=== PATIENT | female | born 1970 | race Caucasian/White ===

== ENCOUNTER → 2017-10-13 14:52 | Outpatient (REF) | payer MEDICARE, SELFPAY ==
[2017-10-13 18:48] LABS: Basophils # 0.1 K/mm3 (0-0.2); Basophils % 0.7 % (0.1-2.0); Eosinophils # 0.1 K/mm3 (0.0-0.4); Eosinophils % 0.5 % (0.1-12.0); Hematocrit 46.6 % (37.0-47.0); Hemoglobin 14.7 g/dL (12.2-16.2); Lymphocytes # 1.7 K/mm3 (0.7-4.5); Lymphocytes % 19.1 K/mm3 (10-50); Mean Corpuscular HGB Conc 31.6 g/dL (31.8-35.4); Mean Corpuscular Hemoglobin 34.4 pg (27.0-31.2); Mean Corpuscular Volume 109.2 fl (81-99); Mean Platelet Volume 8.1 fl (7.4-10.4); Monocytes # 0.4 K/mm3 (0.1-1.0); Monocytes % 4.2 % (1.7-9.3); Neutrophils # 6.7 K/mm3 (1.8-7.8); Neutrophils % 75.5 % (37.0-80.0); Platelet Count 530 K/mm3 (142-424); Red Blood Count 4.27 M/mm3 (4.20-5.40); Red Cell Distribution Width 13.4 % (11.5-17.5); White Blood Count 8.9 K/mm3 (4.8-10.8)
[2017-10-13 19:13] LABS: Alanine Aminotransferase 41 U/L (12-78); Albumin Level 3.7 gm/dL (3.4-5.0); Albumin/Globulin Ratio 0.9 (1.1-1.8); Alkaline Phosphatase 122 U/L (46-116); Anion Gap 12.8 mEq/L (5-15); Aspartate Amino Transferase 47 U/L (15-37); Bilirubin,Total 0.2 mg/dL (0.2-1.0); Blood Urea Nitrogen 11 mg/dL (7-18); Calcium 10.2 mg/dL (8.5-10.1); Carbon Dioxide 31 mmol/L (21.0-32.0); Chloride 95 mmol/L (98-107); Chol/HDL Ratio 2.4 (1-3.5); Cholesterol 232 mg/dL (140-200); Creatinine,Serum 0.62 mg/dL (0.55-1.02); Estimated Glomerular Filt Rate 104 ml/min (>60); GFR (African American) 125 ML/MIN (>60); Globulin 3.9 gm/dl (1.3-3.2); Glucose 108 mg/dL (74-106); HDL Cholesterol 96 mg/dL (29-89); LDL Cholesterol 108 mg/dL (0-130); Potassium 4.8 mmoL/L (3.5-5.1); Sodium 134 mmol/L (136-145); T4 (Thyroxine) 6.7 ug/dl (4.7-13.3); Thyroid Stimulating Hormone 0.01 uIU/ml (0.358-3.740); Total Protein,Serum 7.6 gm/dL (6.4-8.2); Triglycerides 138 mg/dL (30-200); VLDL Cholesterol 28 mg/dL (0-40)
== END ==
LOC: LAB 14:52
PROVIDERS: Visit Provider Physician Assistant
DX: F32.1 Major depressive disorder, single episode, moderate (principal); E10.9 Type 1 diabetes mellitus without complications
CPT/HCPCS: 80053; 80061; 83036; 84436; 84443; 85025

== ENCOUNTER → 2017-10-17 18:13 | Outpatient (CLI) | payer MEDICARE, SELFPAY ==
[2017-10-20 03:38] LABS: Folate 11.7 ng/mL (>3.0); Vitamin B12 291 pg/mL (232-1245)
== END ==
PROVIDERS: Visit Provider Physician Assistant
DX: R53.83 Other fatigue (principal)
CPT/HCPCS: 36415; 82607; 82746

== ENCOUNTER → 2018-02-02 13:20 | Outpatient (CLI) | payer MEDICARE, SELFPAY ==
[2018-02-02 13:30] LABS: Campylobacter Not Detected (NotDetected); Clostridium Difficile A/B, PCR Not Detected (NotDetected); Plesimonas Shigalloides, PCR Not Detected (NotDetected); Salmonella, PCR Not Detected (NotDetected); Yersinia Entercolitica, PCR Not Detected (NotDetected)
[2018-02-02 13:31] LABS: Adenovirus F 40/41, stool Not Detected (NotDetected); Astrovirus Not Detected (NotDetected); Cryptosporidium Not Detected (NotDetected); Cyclospora Cayetanesis Not Detected (NotDetected); Entamoeba histolytica Not Detected (NotDetected); Enteroaggregative E coli Not Detected (NotDetected); Enteropathogenic E coli Not Detected (NotDetected); Enterotoxigenic E coli Not Detected (NotDetected); Giardia lamblia Not Detected (NotDetected); Norovirus Not Detected (NotDetected); Rotavirus A Not Detected (NotDetected); Sapovirus Not Detected (NotDetected); Shiga-like toxin E coli Not Detected (NotDetected); Shigella Enterovasive E coli Not Detected (NotDetected); Vibrio Cholerae Not Detected (NotDetected); Vibrio, PCR Not Detected (NotDetected)
[2018-02-02 14:40] LABS: Basophils # 0.1 K/mm3 (0-0.2); Basophils % 0.8 % (0.1-2.0); Eosinophils # 0.2 K/mm3 (0.0-0.4); Eosinophils % 2.6 % (0.1-12.0); Hemoglobin 12.3 g/dL (12.2-16.2); Lymphocytes # 1.5 K/mm3 (0.7-4.5); Lymphocytes % 20.5 K/mm3 (10-50); Mean Corpuscular HGB Conc 32.4 g/dL (31.8-35.4); Mean Corpuscular Hemoglobin 33.5 pg (27.0-31.2); Mean Corpuscular Volume 103.3 fl (81-99); Mean Platelet Volume 8.1 fl (7.4-10.4); Monocytes # 0.4 K/mm3 (0.1-1.0); Monocytes % 4.9 % (1.7-9.3); Neutrophils # 5.4 K/mm3 (1.8-7.8); Neutrophils % 71.2 % (37.0-80.0); Platelet Count 542 K/mm3 (142-424); Red Blood Count 3.67 M/mm3 (4.20-5.40); Red Cell Distribution Width 13.3 % (11.5-17.5); White Blood Count 7.5 K/mm3 (4.8-10.8)
[2018-02-02 15:03] LABS: Hemoglobin A1C 5.2 % (0.0-7.0)
[2018-02-02 18:00] LABS: Chol/HDL Ratio 2.5 (1-3.5); Cholesterol 140 mg/dL (140-200); HDL Cholesterol 56 mg/dL (29-89); LDL Cholesterol 70 mg/dL (0-130); Triglycerides 69 mg/dL (30-200); VLDL Cholesterol 14 mg/dL (0-40)
[2018-02-02 18:04] LABS: Alanine Aminotransferase 30 U/L (12-78); Albumin Level 2.4 gm/dL (3.4-5.0); Albumin/Globulin Ratio 0.8 (1.1-1.8); Alkaline Phosphatase 98 U/L (46-116); Anion Gap 12.8 mEq/L (5-15); Aspartate Amino Transferase 38 U/L (15-37); Bilirubin,Total 0.2 mg/dL (0.2-1.0); Blood Urea Nitrogen 6 mg/dL (7-18); Calcium 8.6 mg/dL (8.5-10.1); Carbon Dioxide 27 mmol/L (21.0-32.0); Chloride 106 mmol/L (98-107); Creatinine,Serum 0.58 mg/dL (0.55-1.02); Estimated Glomerular Filt Rate 112 ml/min (>60); GFR (African American) 135 ML/MIN (>60); Globulin 2.9 gm/dl (1.3-3.2); Glucose 89 mg/dL (74-106); Potassium 4.8 mmoL/L (3.5-5.1); Sodium 141 mmol/L (136-145); T4 (Thyroxine) 3.8 ug/dl (4.7-13.3); Thyroid Stimulating Hormone 0.01 uIU/ml (0.358-3.740); Total Protein,Serum 5.3 gm/dL (6.4-8.2)
[2018-02-06 06:32] LABS: Vitamin D 25 Hydroxy 42.8 ng/mL (30.0-100.0)
== END ==
PROVIDERS: Visit Provider Nurse Practitioner Family
DX: R19.7 Diarrhea, unspecified (principal); E11.9 Type 2 diabetes mellitus without complications; E78.5 Hyperlipidemia, unspecified
CPT/HCPCS: 80053; 80061; 82652; 83036; 84436; 84443; 85025; 87507

== ENCOUNTER → 2018-11-23 12:16 | Outpatient (CLI) | payer MEDICARE, SELFPAY ==
[2018-11-23 12:34] LABS: Basophils # 0.1 K/mm3 (0-0.2); Basophils % 1.2 % (0.1-2.0); Eosinophils # 0.4 K/mm3 (0.0-0.4); Eosinophils % 4.9 % (0.1-12.0); Hematocrit 40.5 % (37.0-47.0); Hemoglobin 12.9 g/dL (12.2-16.2); Lymphocytes # 2.1 K/mm3 (0.7-4.5); Lymphocytes % 25.2 % (10-50); Mean Corpuscular HGB Conc 31.9 g/dL (31.8-35.4); Mean Corpuscular Hemoglobin 30.9 pg (27.0-31.2); Mean Corpuscular Volume 96.8 fl (81-99); Mean Platelet Volume 7.1 fl (7.4-10.4); Monocytes # 0.4 K/mm3 (0.1-1.0); Monocytes % 4.1 % (1.7-9.3); Neutrophils # 5.5 K/mm3 (1.8-7.8); Neutrophils % 64.5 % (37.0-80.0); Platelet Count 650 K/mm3 (142-424); Red Blood Count 4.18 M/mm3 (4.20-5.40); Red Cell Distribution Width 15.7 % (11.5-17.5); White Blood Count 8.5 K/mm3 (4.8-10.8)
[2018-11-23 12:50] LABS: Hemoglobin A1C 5.7 % (0.0-7.0)
[2018-11-23 14:24] LABS: Alanine Aminotransferase 19 U/L (12-78); Albumin Level 3.6 gm/dL (3.4-5.0); Albumin/Globulin Ratio 0.9 (1.1-1.8); Alkaline Phosphatase 112 U/L (46-116); Anion Gap 16.2 mEq/L (5-15); Aspartate Amino Transferase 14 U/L (15-37); Bilirubin,Total 0.2 mg/dL (0.2-1.0); Blood Urea Nitrogen 10 mg/dL (7-18); Calcium 9.2 mg/dL (8.5-10.1); Carbon Dioxide 26 mmol/L (21.0-32.0); Chloride 102 mmol/L (98-107); Chol/HDL Ratio 4.9 (1-3.5); Cholesterol 210 mg/dL (140-200); Creatinine,Serum 0.78 mg/dL (0.55-1.02); Estimated Glomerular Filt Rate 79 ml/min (>60); GFR (African American) 96 ML/MIN (>60); Globulin 4.1 gm/dl (1.3-3.2); Glucose 105 mg/dL (74-106); HDL Cholesterol 43 mg/dL (29-89); LDL Cholesterol 148 mg/dL (0-130); Potassium 4.2 mmoL/L (3.5-5.1); Sodium 140 mmol/L (136-145); Thyroid Stimulating Hormone 0.01 uIU/ml (0.358-3.740); Total Protein,Serum 7.7 gm/dL (6.4-8.2); Triglycerides 95 mg/dL (30-200); VLDL Cholesterol 19 mg/dL (0-40)
[2018-11-24 14:32] LABS: Vitamin D 25 Hydroxy 73.8 ng/mL (30.0-100.0)
[2018-11-24 14:33] LABS: Microalbumin, Urine <3.0 ug/mL (Not Estab.)
== END ==
PROVIDERS: Visit Provider Emergency Medicine
DX: E11.9 Type 2 diabetes mellitus without complications (principal); E78.5 Hyperlipidemia, unspecified; F41.9 Anxiety disorder, unspecified; Z79.84 Long term (current) use of oral hypoglycemic drugs
CPT/HCPCS: 36415; 80053; 80061; 82043; 82652; 83036; 84436; 84443; 85025

== ENCOUNTER → 2018-12-18 18:08 | Outpatient (CLI) | payer MEDICARE, SELFPAY ==
[2018-12-18 19:25] LABS: Basophils # 0.1 K/mm3 (0-0.2); Basophils % 1.8 % (0.1-2.0); Eosinophils # 0.5 K/mm3 (0.0-0.4); Eosinophils % 7.4 % (0.1-12.0); Hematocrit 36.5 % (37.0-47.0); Hemoglobin 11.3 g/dL (12.2-16.2); Lymphocytes # 2.7 K/mm3 (0.7-4.5); Lymphocytes % 38.6 % (10-50); Mean Corpuscular HGB Conc 30.9 g/dL (31.8-35.4); Mean Corpuscular Hemoglobin 29.2 pg (27.0-31.2); Mean Corpuscular Volume 94.6 fl (81-99); Mean Platelet Volume 7.2 fl (7.4-10.4); Monocytes # 0.4 K/mm3 (0.1-1.0); Neutrophils # 3.3 K/mm3 (1.8-7.8); Neutrophils % 46.2 % (37.0-80.0); Platelet Count 472 K/mm3 (142-424); Red Blood Count 3.86 M/mm3 (4.20-5.40); Red Cell Distribution Width 16.1 % (11.5-17.5); White Blood Count 7.1 K/mm3 (4.8-10.8)
[2018-12-20 18:09] LABS: Peripheral Smear Review Scanned Result
== END ==
PROVIDERS: Visit Provider Physician Assistant
DX: R79.89 Other specified abnormal findings of blood chemistry (principal)
CPT/HCPCS: 36415; 85025; 85060

== ENCOUNTER → 2019-02-08 14:11 | Outpatient (CLI) | payer MEDICARE, SELFPAY ==
--- NOTE | 2019-02-08 14:14 | XR_ITS ---
XR DEXA axial skeleton HISTORY: ITS.REASON: non healing fx ORDERING PHYSICIAN: SHRUTHI Bradley PATIENT AGE: 48 years COMPARISON: None FINDINGS: The BMD measured at the left femoral neck is 0.852 g/cm squared with a T score of -1.3. This is considered Osteopenic according to the World Health Organization criteria. Fracture risk is Moderate. Treatment is advised. IMPRESSION: Osteopenia with moderate fracture risk. Treatment is advised. Suggest follow-up exam January 2021
== END ==
PROVIDERS: PCP Physician Assistant; Visit Provider Physician Assistant
DX: S92.901S Unspecified fracture of right foot, sequela (principal); Z78.0 Asymptomatic menopausal state
CPT/HCPCS: 77080

== ENCOUNTER → 2019-03-05 12:30 | Outpatient (CLI) | payer MEDICARE, SELFPAY ==
--- NOTE | 2019-03-05 12:32 | CT_ITS ---
PROCEDURE: CT HEAD/BRAIN WO CON CLINICAL INDICATION: headaches COMPARISON: No exams were available for comparison TECHNIQUE: Axial images obtained with sagittal and coronal reformats. All CT scans at the facility use one or more dose reduction, viz: automated exposure control, ma/kV adjustment per patient size (including targeted exams where dose is matched to indication, i.e. head), or iterative reconstruction technique. FINDINGS: No midline shift, mass effect, intracranial hemorrhage, hydrocephalus, or extra-axial fluid collection is evident. There is a small area of decreased attenuation in the subinsular region posteriorly on the right and could represent a small perivascular dilated space, small choroidal fissure cyst, or an old lacunar infarction. The calvarium has an unremarkable appearance. No mastoid effusion. No sinus air-fluid level. IMPRESSION: 1. No acute intracranial findings 2. Nonspecific isodense to the subinsular region on the right posteriorly which could be due to small perivascular dilated space, choroidal fissure cyst, or an old lacunar infarction Dictated by: Chaparro Butt MD 03/05/2019 16:50 Signed by: <Electronically signed by Chaparro Butt MD in [facility]> 03/05/2019 16:50
== END ==
PROVIDERS: PCP Physician Assistant; Visit Provider Physician Assistant
DX: R51 Headache (principal)
CPT/HCPCS: 70450

== ENCOUNTER → 2019-08-31 14:00 | Outpatient (CLI) | payer MEDICARE, SELFPAY ==
[2019-08-31 14:29] LABS: Chloride 104 mmol/L (98-107); Potassium 4.8 mmoL/L (3.5-5.1); Sodium 139 mmol/L (136-145)
[2019-08-31 14:31] LABS: Alanine Aminotransferase 15 U/L (12-78); Aspartate Amino Transferase 41 U/L (14-36); Blood Urea Nitrogen 7 mg/dl (7-17); Estimated Glomerular Filt Rate 77 ml/min (>60); GFR (African American) 93 ML/MIN (>60)
[2019-08-31 14:32] LABS: Albumin/Globulin Ratio 1.3 (1.1-1.8); Alkaline Phosphatase 71 U/L (38-126); Anion Gap 13.8 mEq/L (5-15); Bilirubin,Total 0.2 mg/dl (0.2-1.3); Calcium 9.5 mg/dl (8.4-10.2); Carbon Dioxide 26 mmol/L (22.0-30.0); Chol/HDL Ratio 3.1 (1-3.5); Cholesterol 159 mg/dl (140-200); Glucose 83 mg/dl (74-100); HDL Cholesterol 52 mg/dl (40-60); Triglycerides 239 mg/dl (30-150); VLDL Cholesterol 48 mg/dL (0-40)
[2019-08-31 14:37] LABS: Basophils # 0.1 K/mm3 (0-0.2); Basophils % 1.9 % (0.1-2.0); Eosinophils # 0.2 K/mm3 (0.0-0.4); Eosinophils % 3.9 % (0.1-12.0); Hematocrit 38.7 % (37.0-47.0); Hemoglobin 12.8 g/dL (12.2-16.2); Lymphocytes # 2.1 K/mm3 (0.7-4.5); Lymphocytes % 40.7 % (10-50); Mean Corpuscular Hemoglobin 32.5 pg (27.0-31.2); Mean Corpuscular Volume 98.3 fl (81-99); Mean Platelet Volume 7.8 fl (7.4-10.4); Monocytes # 0.3 K/mm3 (0.1-1.0); Neutrophils # 2.5 K/mm3 (1.8-7.8); Neutrophils % 48.5 % (37.0-80.0); Platelet Count 507 K/mm3 (142-424); Red Blood Count 3.94 M/mm3 (4.20-5.40); Red Cell Distribution Width 16.5 % (11.5-17.5); White Blood Count 5.1 K/mm3 (4.8-10.8)
[2019-08-31 14:44] LABS: Direct LDL Cholesterol 64.99 mg/dL (100-129)
[2019-08-31 14:49] LABS: T4 (Thyroxine) 6.2 ug/dl (5.53-11.0)
[2019-08-31 15:03] LABS: Thyroid Stimulating Hormone < 0.02 uIU/mL (0.465-4.68)
[2019-09-03 09:36] LABS: Folate 2.3 ng/mL (>3.0); Vitamin B12 1224 pg/mL (232-1245); Vitamin D 25 Hydroxy 62.3 ng/mL (30.0-100.0)
== END ==
PROVIDERS: Visit Provider Physician Assistant
DX: E03.9 Hypothyroidism, unspecified (principal); R55 Syncope and collapse
CPT/HCPCS: 80053; 80061; 82607; 82652; 82746; 84436; 84443; 85025

== ENCOUNTER → 2020-01-30 15:55 | Outpatient (CLI) | payer MEDICARE, SELFPAY ==
[2020-01-30 16:32] LABS: Basophils # 0.1 K/mm3 (0-0.2); Basophils % 0.9 % (0.1-2.0); Eosinophils # 0.3 K/mm3 (0.0-0.4); Eosinophils % 3.6 % (0.1-12.0); Hematocrit 40.5 % (37.0-47.0); Hemoglobin 13.4 g/dL (12.2-16.2); Lymphocytes # 2.2 K/mm3 (0.7-4.5); Lymphocytes % 22.8 % (10-50); Mean Corpuscular Hemoglobin 33.9 pg (27.0-31.2); Mean Corpuscular Volume 102.8 fl (81-99); Monocytes # 0.2 K/mm3 (0.1-1.0); Monocytes % 2.6 % (1.7-9.3); Neutrophils # 6.6 K/mm3 (1.8-7.8); Neutrophils % 70.2 % (37.0-80.0); Platelet Count 444 K/mm3 (142-424); Red Blood Count 3.94 M/mm3 (4.20-5.40); Red Cell Distribution Width 16.3 % (11.5-17.5); White Blood Count 9.4 K/mm3 (4.8-10.8)
[2020-01-30 16:33] LABS: Chloride 101 mmol/L (98-107); Potassium 4.2 mmoL/L (3.5-5.1); Sodium 137 mmol/L (136-145)
[2020-01-30 16:35] LABS: Alanine Aminotransferase 22 U/L (12-78); Aspartate Amino Transferase 49 U/L (14-36)
[2020-01-30 16:36] LABS: Albumin Level 4.3 g/dl (3.5-5.0); Albumin/Globulin Ratio 1.3 (1.1-1.8); Alkaline Phosphatase 92 U/L (38-126); Anion Gap 12.2 mEq/L (5-15); Bilirubin,Total 0.3 mg/dl (0.2-1.3); Calcium 9.6 mg/dl (8.4-10.2); Carbon Dioxide 28 mmol/L (22.0-30.0); Cholesterol 245 mg/dl (140-200); Globulin 3.4 g/dL (1.3-3.2); Glucose 124 mg/dl (74-100); HDL Cholesterol 81 mg/dl (40-60); Total Protein,Serum 7.7 g/dl (6.3-8.2); Triglycerides 382 mg/dl (30-150); VLDL Cholesterol 76 mg/dL (0-40)
[2020-01-30 16:41] LABS: Blood Urea Nitrogen 11 mg/dl (7-17); Estimated Glomerular Filt Rate 89 ml/min (>60); GFR (African American) 108 ML/MIN (>60)
[2020-01-30 16:47] LABS: Direct LDL Cholesterol 117.74 mg/dL (100-129)
[2020-01-30 16:53] LABS: T4 (Thyroxine) 4.4 ug/dl (5.53-11.0)
[2020-01-30 17:07] LABS: Thyroid Stimulating Hormone < 0.02 uIU/mL (0.465-4.68)
== END ==
PROVIDERS: Emergency Medicine; PCP Physician Assistant; Visit Provider Physician Assistant
DX: E03.9 Hypothyroidism, unspecified (principal); E11.9 Type 2 diabetes mellitus without complications; M54.16 Radiculopathy, lumbar region; Z79.4 Long term (current) use of insulin
CPT/HCPCS: 80053; 80061; 83036; 84436; 84443; 85025

== ENCOUNTER → 2020-02-17 17:13 | Outpatient (CLI) | payer MEDICARE, SELFPAY ==
--- NOTE | 2020-02-17 17:13 | MM_ITS ---
PROCEDURE: MM DIG SCREENING MAMM BI W/CAD Digital Breast Tomosynthesis Included CLINICAL INDICATION: screening There is a history of breast cancer in patient's aunt. There has been a previous biopsy left breast for benign disease. COMPARISON: MG DMSB DIG MAMM-SCREEN JAZMIN from 10/12/2013 MG DMDB DIG MAMM-DX JAZMIN from 08/28/2015 MG DMDB DIG MAMM-DX JAZMIN from 05/20/2016 TECHNIQUE: Standard CC and MLO images and 3D Tomosynthesis was obtained. R2 CAD reviewed. FINDINGS: Diffusely dense and somewhat heterogenic appearing fibroglandular densities are seen in both breasts. Biopsy clip upper outer quadrant left breast. There is no suspicious lesion and no suspicious microcalcifications. IMPRESSION: Moderate breast density with no suspicious lesions seen BI-RAD Category: 2 Benign Finding(s) FOLLOW-UP: 1YR 1 Year Follow-up (A letter has been sent to the patient regarding results of the study.) Dictated Dr. Daquan Pike MD 02/18/2020 13:57 Dr. Daquan Camilo MD in [facility] 02/18/2020 13:57
[2020-02-19 06:18] LABS: Vitamin B12 781 pg/mL (232-1245)
[2020-02-19 13:06] LABS: Folate 18.2 ng/mL (>3.0)
[2020-02-19 17:31] LABS: Peripheral Smear Review Scanned Result
== END ==
PROVIDERS: PCP Physician Assistant; Visit Provider Physician Assistant
DX: Z12.31 Encounter for screening mammogram for malignant neoplasm of breast (principal); D69.6 Thrombocytopenia, unspecified; E03.9 Hypothyroidism, unspecified; D53.9 Nutritional anemia, unspecified
CPT/HCPCS: 36415; 77063; 77067; 82607; 82746

== ENCOUNTER → 2020-03-04 09:58 | Outpatient (CLI) | payer MEDICARE, SELFPAY ==
[2020-03-04 10:59] LABS: Chloride 104 mmol/L (98-107); Potassium 4.3 mmoL/L (3.5-5.1); Sodium 135 mmol/L (136-145)
[2020-03-04 11:01] LABS: Blood Urea Nitrogen 9 mg/dl (7-17); Estimated Glomerular Filt Rate 89 ml/min (>60); GFR (African American) 108 ML/MIN (>60)
[2020-03-04 11:02] LABS: Alanine Aminotransferase 25 U/L (12-78); Albumin Level 3.9 g/dl (3.5-5.0); Albumin/Globulin Ratio 1.4 (1.1-1.8); Alkaline Phosphatase 74 U/L (38-126); Anion Gap 11.3 mEq/L (5-15); Aspartate Amino Transferase 44 U/L (14-36); Bilirubin,Total 0.4 mg/dl (0.2-1.3); Calcium 9.4 mg/dl (8.4-10.2); Carbon Dioxide 24 mmol/L (22.0-30.0); Globulin 2.7 g/dL (1.3-3.2); Glucose 103 mg/dl (74-100); Total Protein,Serum 6.6 g/dl (6.3-8.2)
[2020-03-04 11:33] LABS: Thyroid Stimulating Hormone 0.14 uIU/mL (0.465-4.68)
== END ==
PROVIDERS: Visit Provider Physician Assistant
DX: D53.9 Nutritional anemia, unspecified (principal); E03.9 Hypothyroidism, unspecified
CPT/HCPCS: 36415; 80053; 84443

== ENCOUNTER → 2020-03-28 13:32 | Outpatient (CLI) | payer MEDICARE, SELFPAY ==
--- NOTE | 2020-03-28 13:37 | XR_ITS ---
PROCEDURE: XR SHOULDER RT MIN 2V CLINICAL INDICATION: rt shoulder pain COMPARISON: No exams were available for comparison FINDINGS: No fracture or dislocation. No lytic or blastic change. There is normal mineralization. There are osteoarthritic changes the glenohumeral joint and acromioclavicular joint with mild subacromial stenosis. There is an old right 9th rib fracture. Other findings:None. IMPRESSION: Osteoarthritic change Dictated by: Chaparro Butt MD 03/28/2020 18:03 Chaparro Butt MD in [facility] 03/28/2020 18:03
== END ==
PROVIDERS: PCP Emergency Medicine; Visit Provider Orthopaedic Surgery
DX: M25.511 Pain in right shoulder (principal)
CPT/HCPCS: 73030

== ENCOUNTER → 2020-04-10 07:59 | Outpatient (CLI) | payer MEDICARE, SELFPAY ==
--- NOTE | 2020-04-10 08:00 | MR_ITS ---
PROCEDURE: MR SHOULDER RT WO CON CLINICAL INDICATION: evaluate for RCT / avascular necrosis prior hx 2 shoulder surgeries last one was december 2018. shoulder pain since last sugery. limited rom. no injury. prior x-ray 03-28-20 COMPARISON: CR XR SHOULDER RT MIN 2V from 03/28/2020 TECHNIQUE: Routine multiplanar multi echo sequences are performed without gadolinium enhancement. FINDINGS: There has been prior shoulder surgery. Nonmetallic screw noted within the humeral head laterally and posteriorly. No evidence of rotator cuff tear. Increased T2 signal with thickening noted involving the supraspinatus and infraspinatus tendons consistent with tendinopathy/tendinosis. The subscapularis and teres minor tendons are intact. Subchondral cystic changes are present involving the humeral head posteriorly. There is a small shoulder joint effusion. Osteoarthritic changes are present at the acromioclavicular joint with bony hypertrophy. There is some fluid in the AC joint and in the periarticular tissues superiorly. The bicipital tendon has a split configuration superiorly but is in place. A small amount of fluid is present within the bicipital tendon sheath. No obvious labral tear. The small amount of fluid is present in the shoulder joint. Small amount of fluid is present in the subdeltoid region and subacromial area. There are osteoarthritic changes of the glenohumeral joint. There is evidence of avascular necrosis of the humeral head. Along the anterior medial aspect of the humeral head there is a curvilinear area of decreased T2 signal with a crescent sign in the subcortical region of the humeral head manifest by increased T2 signal. There is some cortical collapse is well. IMPRESSION: 1. Postsurgical changes of the shoulder. 2. Acromioclavicular arthropathy with fluid in the AC joint and periarticular tissues. Osteoarthritic changes of the glenohumeral joint with superior location of the humeral head with shoulder joint effusion 3. Tendinopathy/tendinosis of the supraspinatus and infraspinatus tendons but no evidence of rotator cuff tear. 4. Split tear of the bicipital tendon. 5. Avascular necrosis of the humeral head. Dictated by: Chaparro Butt MD 04/11/2020 10:33 Chaparro Butt MD in [facility] 04/11/2020 10:33
== END ==
PROVIDERS: PCP Emergency Medicine; Visit Provider Orthopaedic Surgery
DX: G89.29 Other chronic pain (principal); M25.511 Pain in right shoulder; M87.021 Idiopathic aseptic necrosis of right humerus
CPT/HCPCS: 73221

== ENCOUNTER → 2020-04-26 14:49 | Outpatient (CLI) | payer MEDICARE, SELFPAY | PROVIDERS: Visit Provider Surgery | DX: R19.7 Diarrhea, unspecified (principal) | CPT/HCPCS: 87506 ==

== ENCOUNTER 2020-04-26 14:57 | Outpatient (RCR) | payer MEDICARE, SELFPAY | END 2020-04-26 15:29 | disposition home or self-care (01) | LOC: OT 14:57 | PROVIDERS: Visit Provider Orthopaedic Surgery | DX: G56.01 Carpal tunnel syndrome, right upper limb (principal) | CPT/HCPCS: 97763 ==

== ENCOUNTER → 2020-08-16 13:54 | Outpatient (CLI) | payer MEDICARE, SELFPAY ==
[2020-08-16 14:22] LABS: Amphetamine/Metha Screen,Urine Negative ng/ml (<1000); Barbiturates Screen,Urine Negative ng/ml (<200)
[2020-08-16 14:23] LABS: Benzodiazepines Screen,Urine Positive ng/ml (<200)
[2020-08-16 14:24] LABS: Cannabinoid Screen,Urine Negative ng/ml (<50); Cocaine Screen,Urine Negative ng/ml (<300)
[2020-08-16 14:25] LABS: Methadone Screen,Urine Negative ng/ml (<300)
[2020-08-16 14:26] LABS: Opiate Screen,Urine Negative ng/ml (<300); Phencyclidine Screen,Urine Negative ng/ml (<25)
[2020-08-16 14:40] LABS: Basophils # 0.1 K/mm3 (0-0.2); Basophils % 1.5 % (0.1-2.0); Eosinophils # 0.3 K/mm3 (0.0-0.4); Eosinophils % 3.5 % (0.1-12.0); Hematocrit 40.7 % (37.0-47.0); Hemoglobin 12.6 g/dL (12.2-16.2); Lymphocytes % 22.2 % (10-50); Mean Corpuscular HGB Conc 30.9 g/dL (31.8-35.4); Mean Corpuscular Hemoglobin 30.7 pg (27.0-31.2); Mean Corpuscular Volume 99.1 fl (81-99); Mean Platelet Volume 7.6 fl (7.4-10.4); Monocytes # 0.5 K/mm3 (0.1-1.0); Monocytes % 5.6 % (1.7-9.3); Neutrophils % 67.2 % (37.0-80.0); Platelet Count 546 K/mm3 (142-424); Red Blood Count 4.11 M/mm3 (4.20-5.40); Red Cell Distribution Width 18.1 % (11.5-17.5); White Blood Count 8.9 K/mm3 (4.8-10.8)
[2020-08-16 15:42] LABS: Alanine Aminotransferase 13 U/L (12-78); Albumin Level 4.4 g/dl (3.5-5.0); Albumin/Globulin Ratio 1.3 (1.1-1.8); Alkaline Phosphatase 91 U/L (38-126); Aspartate Amino Transferase 51 U/L (14-36); Bilirubin,Total 0.6 mg/dl (0.2-1.3); Blood Urea Nitrogen 11 mg/dl (7-17); Calcium 10.2 mg/dl (8.4-10.2); Carbon Dioxide 30 mmol/L (22.0-30.0); Chloride 103 mmol/L (98-107); Chol/HDL Ratio 4.1 (1-3.5); Cholesterol 195 mg/dl (140-200); Estimated Glomerular Filt Rate 67 ml/min (>60); GFR (African American) 81 ML/MIN (>60); Globulin 3.4 g/dL (1.3-3.2); Glucose 109 mg/dl (74-100); HDL Cholesterol 48 mg/dl (40-60); Sodium 136 mmol/L (136-145); Total Protein,Serum 7.8 g/dl (6.3-8.2); Triglycerides 318 mg/dl (30-150); VLDL Cholesterol 64 mg/dL (0-40)
[2020-08-16 15:53] LABS: Direct LDL Cholesterol 90.36 mg/dL (100-129)
[2020-08-16 15:59] LABS: 25-OH Vitamin D, Total 34.7 ng/mL (30-100)
== END ==
PROVIDERS: Visit Provider Physician Assistant
DX: E11.9 Type 2 diabetes mellitus without complications (principal); E78.5 Hyperlipidemia, unspecified; M54.16 Radiculopathy, lumbar region; Z79.899 Other long term (current) drug therapy; E03.9 Hypothyroidism, unspecified; M85.80 Other specified disorders of bone density and structure, unspecified site; Z79.4 Long term (current) use of insulin
CPT/HCPCS: 80053; 80061; 80305; 82043; 82306; 83036; 85025

== ENCOUNTER → 2020-11-02 10:32 | Outpatient (CLI) | payer MEDICARE, SELFPAY ==
[2020-11-02 11:17] LABS: Basophils # 0.1 K/mm3 (0-0.2); Basophils % 1.2 % (0.1-2.0); Eosinophils # 0.3 K/mm3 (0.0-0.4); Eosinophils % 2.6 % (0.1-12.0); Hematocrit 39.9 % (37.0-47.0); Hemoglobin 12.9 g/dL (12.2-16.2); Lymphocytes # 1.8 K/mm3 (0.7-4.5); Lymphocytes % 18.8 % (10-50); Mean Corpuscular HGB Conc 32.3 g/dL (31.8-35.4); Mean Corpuscular Hemoglobin 32.5 pg (27.0-31.2); Mean Corpuscular Volume 100.7 fl (81-99); Mean Platelet Volume 7.3 fl (7.4-10.4); Monocytes # 0.5 K/mm3 (0.1-1.0); Monocytes % 5.2 % (1.7-9.3); Neutrophils # 6.9 K/mm3 (1.8-7.8); Neutrophils % 72.1 % (37.0-80.0); Platelet Count 509 K/mm3 (142-424); Red Blood Count 3.96 M/mm3 (4.20-5.40); Red Cell Distribution Width 16.5 % (11.5-17.5); White Blood Count 9.6 K/mm3 (4.8-10.8)
== END ==
PROVIDERS: Visit Provider Internal Medicine Medical Oncology
DX: D47.3 Essential (hemorrhagic) thrombocythemia (principal)
CPT/HCPCS: 36415; 85025

== ENCOUNTER → 2020-12-20 18:13 | Outpatient (CLI) | payer MEDICARE, SELFPAY ==
[2020-12-20 19:41] LABS: Amphetamine/Metha Screen,Urine Negative ng/ml (<1000)
[2020-12-20 19:42] LABS: Barbiturates Screen,Urine Negative ng/ml (<200)
[2020-12-20 19:43] LABS: Benzodiazepines Screen,Urine Negative ng/ml (<200); Cannabinoid Screen,Urine Negative ng/ml (<50)
[2020-12-20 19:44] LABS: Cocaine Screen,Urine Negative ng/ml (<300); Methadone Screen,Urine Negative ng/ml (<300)
[2020-12-20 19:45] LABS: Opiate Screen,Urine Negative ng/ml (<300)
[2020-12-20 19:46] LABS: Phencyclidine Screen,Urine Negative ng/ml (<25)
== END ==
PROVIDERS: Visit Provider Physician Assistant
DX: M54.16 Radiculopathy, lumbar region (principal); Z79.899 Other long term (current) drug therapy
CPT/HCPCS: 80305

== ENCOUNTER 2022-12-29 20:59 | Emergency (ER) | payer MEDICARE, SELFPAY ==
[2022-12-29 21:11] VITALS: BP 158/100; PULSE 104; RESP 16; TEMP 36.9; O2SAT 100; BMI 21.9
[2022-12-29 21:30] VITALS: BP 119/79; PULSE 90; O2SAT 99
--- NOTE | 2022-12-29 21:39 | XR_ITS ---
PROCEDURE INFORMATION: Exam: XR Right Shoulder Exam date and time: 12/29/2022 9:35 PM Age: 52 years old Clinical indication: Pain; Shoulder; Right TECHNIQUE: Imaging protocol: Radiologic exam of the right shoulder. Views: 2 or more views. COMPARISON: MR SHOULDER RT WO CON 04/10/2020 8:14 AM FINDINGS: Bones/joints: Post right shoulder arthroplasty without evidence of hardware complication. Superior migration of the humeral head relative to the glenoid. No glenohumeral dislocation. Cystic changes at the greater tuberosity compatible with tendinopathy. No acute fracture. Moderate acromioclavicular joint osteoarthrosis. Remote right posterolateral rib fracture deformity. Soft tissues: Unremarkable. IMPRESSION: 1. Post right shoulder arthroplasty without evidence of hardware complication. No acute fracture. 2. Superior migration of the humeral head relative to the glenoid compared to 03/28/2020 suggestive of full-thickness rotator cuff tear.
--- NOTE | 2022-12-29 21:48 | HMH.EDBACK ---
Discharge Plan Disposition Patient Disposition: Home, Self-Care Chief Complaint: Back Pain/Injury Prescriptions Prescriptions: No Action (DME) blood-glucose meter [Accu-Chek Jacquelyn Plus Meter] Misc See Rx Instructions .ROUTE .COMPLEX Qty: 1 0RF Dose Instruction: USE DIRECTED Rx Instructions: USE DIRECTED dextromethorphan-guaifenesin [Mucinex DM] 60-1,200 mg tablet extended release 12 hr 1 tab PO Q12H Qty: 20 0RF levocetirizine [Xyzal] 5 mg tablet 5 mg PO DAILY Qty: 30 2RF albuterol sulfate [Proventil HFA] 90 mcg/actuation HFA aerosol inhaler 2 puff INHALATION Q6H Qty: 8.5 0RF Rx Instructions: administer with spacer alcohol swabs [BD Alcohol Swabs] Pads, Medicated See Rx Instructions .ROUTE .COMPLEX Qty: 300 0RF Dose Instruction: APPLY TOPICALLY DIRECTED Rx Instructions: APPLY TOPICALLY DIRECTED atorvastatin 20 mg tablet See Rx Instructions .ROUTE .COMPLEX Qty: 90 3RF Dose Instruction: TAKE 1 TABLET EVERY DAY Rx Instructions: TAKE 1 TABLET EVERY DAY (DME) Accu-Chek Jacquelyn Plus test strp Strip See Rx Instructions .ROUTE .COMPLEX Qty: 200 0RF Dose Instruction: TEST BLOOD SUGAR TWICE DAILY Rx Instructions: TEST BLOOD SUGAR TWICE DAILY duloxetine 60 mg capsule,delayed release(DR/EC) See Rx Instructions .ROUTE .COMPLEX Qty: 90 0RF Dose Instruction: TAKE 1 CAPSULE EVERY DAY Rx Instructions: TAKE 1 CAPSULE EVERY DAY ergocalciferol (vitamin D2) 1,250 mcg (50,000 unit) capsule 50,000 unit PO QWEEK Qty: 10 2RF fluticasone propionate [Flonase Allergy Relief] 50 mcg/actuation spray,suspension 1 spray INTRANASAL QDAY 30 Days Qty: 9.9 0RF Rx Instructions: administer into each nostril folic acid 1 mg tablet 1 mg PO DAILY Qty: 30 2RF levothyroxine 100 mcg tablet 100 mcg PO DAILY Qty: 90 3RF lidocaine [Lidoderm] 5 % adhesive patch,medicated 1 patch TOPICAL DAILY Qty: 30 2RF Rx Instructions: leave on most painful area for up to 12 hrs omeprazole 40 mg capsule,delayed release(DR/EC) See Rx Instructions .ROUTE .COMPLEX Qty: 90 3RF Dose Instruction: TAKE 1 CAPSULE EVERY DAY Rx Instructions: TAKE 1 CAPSULE EVERY DAY furosemide 20 mg tablet See Rx Instructions .ROUTE .COMPLEX Qty: 90 0RF Dose Instruction: TAKE 1 TABLET DAILY Rx Instructions: TAKE 1 TABLET DAILY metformin 500 mg tablet See Rx Instructions .ROUTE .COMPLEX Qty: 180 0RF Dose Instruction: TAKE 1 TABLET TWICE A DAY Rx Instructions: TAKE 1 TABLET TWICE A DAY amitriptyline 10 mg tablet See Rx Instructions .ROUTE .COMPLEX Qty: 90 0RF Dose Instruction: TAKE 1 TABLET AT BEDTIME Rx Instructions: TAKE 1 TABLET AT BEDTIME alendronate 70 mg tablet See Rx Instructions .ROUTE .COMPLEX Qty: 12 0RF Dose Instruction: TAKE 1 TABLET WEEKLY Rx Instructions: TAKE 1 TABLET WEEKLY (DME) lancets [Accu-Chek Softclix Lancets] Mis See Rx Instructions .ROUTE .COMPLEX Qty: 200 1RF Dose Instruction: TEST BLOOD SUGAR 3 TIMES A DAY DIRECTED Rx Instructions: TEST BLOOD SUGAR 3 TIMES A DAY DIRECTED ibuprofen 400 mg tablet See Rx Instructions .ROUTE .COMPLEX Qty: 360 0RF Dose Instruction: TAKE 1 TABLET EVERY 6 HOURS Rx Instructions: TAKE 1 TABLET EVERY 6 HOURS metoclopramide HCl 10 mg tablet See Rx Instructions .ROUTE .COMPLEX Qty: 90 0RF Dose Instruction: TAKE 1 TABLET 3 TIMES A DAYAS NEEDED FOR NAUSEA AND VOMITING Rx Instructions: TAKE 1 TABLET 3 TIMES A DAYAS NEEDED FOR NAUSEA AND VOMITING famotidine 20 mg tablet See Rx Instructions .ROUTE .COMPLEX Qty: 30 0RF Dose Instruction: TAKE 1 TABLET DAILY Rx Instructions: TAKE 1 TABLET DAILY potassium chloride 10 mEq capsule, extended release See Rx Instructions .ROUTE .COMPLEX Qty: 60 0RF Dose I
[2022-12-29 22:00] VITALS: BP 124/85; PULSE 102; O2SAT 100
[2022-12-29 22:10] LABS: Basophils # 0.1 K/mm3 (0-0.2); Eosinophils # 0.5 K/mm3 (0.0-0.4); Eosinophils % 5.7 % (0.1-12.0); Hematocrit 37.4 % (37.0-47.0); Hemoglobin 12.1 g/dL (12.2-16.2); Lymphocytes # 3.4 K/mm3 (0.7-4.5); Lymphocytes % 40.8 % (10-50); Mean Corpuscular HGB Conc 32.3 g/dL (31.8-35.4); Mean Corpuscular Hemoglobin 29.1 pg (27.0-31.2); Mean Platelet Volume 7.3 fl (7.4-10.4); Monocytes # 0.4 K/mm3 (0.1-1.0); Monocytes % 4.9 % (1.7-9.3); Neutrophils % 47.5 % (37.0-80.0); Platelet Count 628 K/mm3 (142-424); Red Blood Count 4.16 M/mm3 (4.20-5.40); Red Cell Distribution Width 16.8 % (11.5-17.5); White Blood Count 8.4 K/mm3 (4.8-10.8)
[2022-12-29 22:28] LABS: Alanine Aminotransferase 18 U/L (12-78); Albumin Level 4.4 g/dl (3.5-5.0); Albumin/Globulin Ratio 1.4 (1.1-1.8); Alkaline Phosphatase 78 U/L (38-126); Anion Gap 13.3 mEq/L (5-15); Aspartate Amino Transferase 35 U/L (14-36); Bilirubin,Total 0.2 mg/dl (0.2-1.3); Blood Urea Nitrogen 15 mg/dl (7-17); Calcium 9.1 mg/dl (8.4-10.2); Carbon Dioxide 29 mmol/L (22.0-30.0); Chloride 98 mmol/L (98-107); Creatinine Clearance Estimated 59 mL/min (50-200); Estimated Glomerular Filt Rate 66 ml/min (>60); GFR (African American) 80 ML/MIN (>60); Globulin 3.1 g/dL (1.3-3.2); Glucose 133 mg/dl (74-100); Potassium 4.3 mmoL/L (3.5-5.1); Sodium 136 mmol/L (136-145); Total Protein,Serum 7.5 g/dl (6.3-8.2)
[2022-12-29 22:30] VITALS: BP 121/84; PULSE 99; O2SAT 98
--- NOTE | 2022-12-29 22:31 | PC.NURSE ---
Rounded on pt. Pt wanting pain shot advised we are waiting on her scan results at this time.
[2022-12-29 22:39] VITALS: BP 121/84; PULSE 84; RESP 16; TEMP 36.9; O2SAT 98
[2022-12-29 23:00] LABS: Hemoglobin A1C 5.7 % (4.0-6.0)
== END 2022-12-29 22:59 | disposition home or self-care (01) ==
PROVIDERS: Emergency Provider Emergency Medicine; PCP Physician Assistant
DX: M25.511 Pain in right shoulder (principal); E11.9 Type 2 diabetes mellitus without complications; E78.5 Hyperlipidemia, unspecified; E03.9 Hypothyroidism, unspecified; F41.9 Anxiety disorder, unspecified; F32.A Depression, unspecified; F17.210 Nicotine dependence, cigarettes, uncomplicated
CPT/HCPCS: 73030; 80053; 83036; 85025; 96372; 99284

== ENCOUNTER → 2022-12-30 13:22 | Outpatient (CLI) | payer MEDICARE, SELFPAY | PROVIDERS: PCP Physician Assistant; Visit Provider Physician Assistant | DX: E10.9 Type 1 diabetes mellitus without complications (principal) | CPT/HCPCS: 84443 ==

== ENCOUNTER → 2022-12-30 19:02 | Outpatient (CLI) | payer MEDICARE, SELFPAY ==
[2022-12-30 19:44] LABS: Amphetamine/Metha Screen,Urine Negative ng/ml (<1000)
[2022-12-30 19:45] LABS: Barbiturates Screen,Urine Negative ng/ml (<200); Benzodiazepines Screen,Urine Negative ng/ml (<200)
[2022-12-30 19:46] LABS: Cannabinoid Screen,Urine Negative ng/ml (<50)
[2022-12-30 19:47] LABS: Cocaine Screen,Urine Negative ng/ml (<300); Methadone Screen,Urine Negative ng/ml (<300)
[2022-12-30 19:48] LABS: Opiate Screen,Urine Positive ng/ml (<300)
[2022-12-30 19:50] LABS: Phencyclidine Screen,Urine Negative ng/ml (<25)
[2022-12-30 19:59] LABS: Microalbumin/Creatinine Ratio 2.4
[2022-12-30 20:04] LABS: Creatinine,Urine Random 277 mg/dL (Not Estab.)
== END ==
PROVIDERS: PCP Physician Assistant; Visit Provider Physician Assistant
DX: R39.9 Unspecified symptoms and signs involving the genitourinary system (principal); M25.511 Pain in right shoulder; B96.20 Unspecified Escherichia coli [E. coli] as the cause of diseases classified elsewhere; Z79.899 Other long term (current) drug therapy
CPT/HCPCS: 80305; 82043; 82570; 84443; 87086; 87088; 87186

== ENCOUNTER 2023-05-04 21:10 | Emergency (ER) | payer MEDICARE, SELFPAY ==
[2023-05-04 21:13] VITALS: BP 146/88; PULSE 91; RESP 15; TEMP 36.6; O2SAT 97; BMI 21.9
--- NOTE | 2023-05-04 21:48 | XR_ITS ---
PROCEDURE INFORMATION: Exam: XR Chest Exam date and time: 05/04/2023 9:45 PM Age: 52 years old Clinical indication: Pain; Other: Fall; Additional info: Fall pain TECHNIQUE: Imaging protocol: Radiologic exam of the chest. Views: 1 view. COMPARISON: CR XR SHOULDER RT MIN 2V 12/29/2022 9:35 PM FINDINGS: Lungs: Unremarkable. No consolidation. Pleural spaces: Unremarkable. No pleural effusion. No pneumothorax. Heart/Mediastinum: Unremarkable. No cardiomegaly. Bones/joints: Right shoulder arthroplasty. IMPRESSION: No acute findings.
--- NOTE | 2023-05-04 21:48 | XR_ITS ---
PROCEDURE INFORMATION: Exam: XR Right Shoulder Exam date and time: 05/04/2023 9:46 PM Age: 52 years old Clinical indication: Pain; Shoulder; Right; Additional info: Shoulder pain TECHNIQUE: Imaging protocol: Radiologic exam of the right shoulder. Views: 2 or more views. COMPARISON: CR XR SHOULDER RT MIN 2V 12/29/2022 9:35 PM FINDINGS: Bones/joints: Right shoulder arthroplasty similar to comparison 12/29/2022. Soft tissues: Normal. IMPRESSION: Right shoulder arthroplasty similar to comparison 12/29/2022.
--- NOTE | 2023-05-04 21:48 | XR_ITS ---
PROCEDURE INFORMATION: Exam: XR Sacrum and Coccyx, 2 or More Views Exam date and time: 05/04/2023 9:50 PM Age: 52 years old Clinical indication: Pain in coccyx area; Additional info: Fall pain TECHNIQUE: Imaging protocol: XR of the sacrum and coccyx, 2 or more views. COMPARISON: No relevant prior studies available. FINDINGS: Bones/joints: Internal fixation of the lumbar spine. Internal fixation left SI joint. Soft tissues: Normal. IMPRESSION: No acute findings.
--- NOTE | 2023-05-04 22:29 | HMH.EDGENADL ---
Discharge Plan Disposition Patient Disposition: Home, Self-Care Prescriptions Prescriptions: No Action lidocaine [Lidoderm] 5 % adhesive patch,medicated 1 patch TOPICAL DAILY Qty: 30 2RF Rx Instructions: leave on most painful area for up to 12 hrs levocetirizine [Xyzal] 5 mg tablet 5 mg PO DAILY Qty: 90 1RF (DME) blood-glucose meter [Accu-Chek Jacquelyn Plus Meter] Misc See Rx Instructions .ROUTE .COMPLEX Qty: 1 0RF Dose Instruction: USE DIRECTED Rx Instructions: USE DIRECTED alcohol swabs [BD Alcohol Swabs] Pads, Medicated See Rx Instructions .ROUTE .COMPLEX Qty: 300 0RF Dose Instruction: APPLY TOPICALLY DIRECTED Rx Instructions: APPLY TOPICALLY DIRECTED (DME) Accu-Chek Jacquelyn Plus test strp Strip See Rx Instructions .ROUTE .COMPLEX Qty: 200 0RF Dose Instruction: TEST BLOOD SUGAR TWICE DAILY Rx Instructions: TEST BLOOD SUGAR TWICE DAILY duloxetine 60 mg capsule,delayed release(DR/EC) See Rx Instructions .ROUTE .COMPLEX Qty: 90 0RF Dose Instruction: TAKE 1 CAPSULE EVERY DAY Rx Instructions: TAKE 1 CAPSULE EVERY DAY omeprazole 40 mg capsule,delayed release(DR/EC) See Rx Instructions .ROUTE .COMPLEX Qty: 90 3RF Dose Instruction: TAKE 1 CAPSULE EVERY DAY Rx Instructions: TAKE 1 CAPSULE EVERY DAY furosemide 20 mg tablet See Rx Instructions .ROUTE .COMPLEX Qty: 90 0RF Dose Instruction: TAKE 1 TABLET DAILY Rx Instructions: TAKE 1 TABLET DAILY (DME) lancets [Accu-Chek Softclix Lancets] Misc See Rx Instructions .ROUTE .COMPLEX Qty: 200 1RF Dose Instruction: TEST BLOOD SUGAR 3 TIMES A DAY DIRECTED Rx Instructions: TEST BLOOD SUGAR 3 TIMES A DAY DIRECTED metoclopramide HCl 10 mg tablet See Rx Instructions .ROUTE .COMPLEX Qty: 90 0RF Dose Instruction: TAKE 1 TABLET 3 TIMES A DAYAS NEEDED FOR NAUSEA AND VOMITING Rx Instructions: TAKE 1 TABLET 3 TIMES A DAYAS NEEDED FOR NAUSEA AND VOMITING famotidine 20 mg tablet See Rx Instructions .ROUTE .COMPLEX Qty: 30 0RF Dose Instruction: TAKE 1 TABLET DAILY Rx Instructions: TAKE 1 TABLET DAILY sumatriptan succinate [Imitrex] 50 mg tablet See Rx Instructions PO .COMPLEX Qty: 20 0RF Rx Instructions: take 1 tab at onset of headache; if no relief may repeat 1 tab after at least 2 hrs; max = 4 tabs/24 hr PO ondansetron 8 mg tablet,disintegrating 8 mg PO Q8H Qty: 30 0RF (DME) insulin syringe-needle U-100 [[facility] Syringes] 0.3 mL 30 gauge x 5/16 syringe See Rx Instructions .Route Qty: 100 2RF Rx Instructions: As directed or x2 acetaminophen-codeine 300-30 mg tablet 1 tab PO BID PRN (Reason: pain) Qty: 20 0RF gabapentin 600 mg tablet 600 mg PO TID Qty: 90 2RF meclizine 25 mg tablet See Rx Instructions .ROUTE .COMPLEX Qty: 30 0RF Dose Instruction: TAKE 1 TABLET BY MOUTH THREE TIMES A DAY NEEDED FOR VERTIGO Rx Instructions: TAKE 1 TABLET BY MOUTH THREE TIMES A DAY NEEDED FOR VERTIGO prednisone 20 mg tablet See Rx Instructions .ROUTE .COMPLEX Qty: 10 0RF Dose Instruction: TAKE 1 TABLET BY MOUTH TWICE A DAY ADMINISTER WITH FOOD OR MILK Rx Instructions: TAKE 1 TABLET BY MOUTH TWICE A DAY ADMINISTER WITH FOOD OR MILK levothyroxine 100 mcg tablet 100 mcg PO DAILY Qty: 90 3RF potassium chloride 10 mEq capsule, extended release See Rx Instructions .ROUTE .COMPLEX Qty: 60 0RF Dose Instruction: TAKE 1 CAPSULE BY MOUTH TWICE A DAY Rx Instructions: TAKE 1 CAPSULE BY MOUTH TWICE A DAY Nurtec ODT 75 mg tablet,disintegrating See Rx Instructions .ROUTE .COMPLEX Qty: 8 1RF Dose Instruction: TAKE 1 TABLET BY MOUTH DAILY NEEDED FOR MIGRAINE HEADACHE Rx Instructions: TAKE 1 TABLET BY MOUTH DAILY NEEDED FOR MIGRAINE HEADACHE promethazine 25 mg suppository See Rx Instr
--- NOTE | 2023-05-04 22:35 | PC.NURSE ---
Went in to give patient 1g Tylenol PO for pain patient refused and was upset and stated Is this all you are giving me for my extreme pain . Pain began packing up her bags and stated she was leaving. Basil manager of organizational development also at stating patient would have to sign an AMA form. Patient signed AMA form and left out of ED no acute distress noted at this time.
[2023-05-04 22:39] VITALS: BP 145/89; PULSE 87; RESP 16; TEMP 36.6; O2SAT 99
== END 2023-05-04 22:35 | disposition home or self-care (01) ==
PROVIDERS: Emergency Provider Student in an Organized Health Care Education/Training Program; PCP Physician Assistant
DX: M25.511 Pain in right shoulder (principal); M53.3 Sacrococcygeal disorders, not elsewhere classified; F17.210 Nicotine dependence, cigarettes, uncomplicated; E11.9 Type 2 diabetes mellitus without complications; E78.5 Hyperlipidemia, unspecified; E03.9 Hypothyroidism, unspecified; Z79.4 Long term (current) use of insulin; W19.XXXA Unspecified fall, initial encounter
CPT/HCPCS: 71045; 72220; 73030; 99284

== ENCOUNTER 2024-10-13 10:51 | Outpatient (POV) | payer OTHER, SELFPAY ==
--- NOTE | 2024-10-13 12:04 | XR_ITS ---
FINAL REPORT CLINICAL HISTORY: Low back pain COMPARISON: None FINDINGS: Three views of the lumbosacral spine were obtained. There are postoperative changes from fusion of L4-5 and left SI joint fusion. No fracture is identified. There is minimal levoscoliosis. No subluxation. Mild diffuse degenerative changes are noted. IMPRESSION: Postoperative and mild degenerative change without acute process. Reviewed, Interpreted and Dictated by Mike Berry MD Transcribed by Arielle Rodriguez Authenticated and [facility]
--- NOTE | 2024-10-13 12:20 | A.OFFVIS_ITS ---
HPI Data of Consult Patient: new to practice Consult date: 10/13/24 Requesting Physician: Kaylyn Richards APRN Primary Care Provider: SHRUTHI Emerson Consult Narrative Reason for consult: Chronic low back pain, right shoulder pain History of present illness: Ms. Jacques is a 54 year old female who presents today as a new patient. She is a referral from Payton Mendiola's office. Today she rates her pain a 6 out of 10. Patient does state that she has got chronic low back pain as well as right shoulder pain. Patient states this is constant and does interfere with her ability perform activities of daily living such as cooking and cleaning. Patient does state that she has had multiple back surgeries with around 4-5 total. This does include an L4-L5 fusion left SI fusion. She is also had a partial right shoulder replacement and does state that shoulder is worse than her low back currently. Patient denies any recent imaging. Patient states that she has tried oral medication, heat and ice, topicals and injections in the past however they did not make much improvement. She does state that she also had a stimulator in the past that was implanted however over time it did not seem like it worked as well so she had it removed by Dr. العلي. She does state that it is just progressively worsened over the last few years and she is not necessarily interested in a pump. Patient states she previously was on combination fentanyl patches, gabapentin and anxiety meds and those did seem like that helps. Patient has tried and failed chiropractor and physical therapy. Patient does states she is a diabetic and that she has to be very mindful of her kidneys related to this. Patient is interested in any help we may be able to provide. Her Richard has been reviewed. She is not currently on any scheduled medications. CC: Kaylyn Richards APRN [facility] Disclaimer: The information contained in this section may have been updated after the patient was seen, as this information can be updated by other users. Medical History Anxiety Chronic lumbar radiculopathy Depression Diabetes mellitus Hyperlipidemia (~10/15/17) Hypothyroidism Nausea Social History Smoking Status: Current every day smoker tobacco type: cigarettes packs per day: 2 alcohol intake: never substance use type: denies use current occupational status: disabled Travel in the last 8 weeks: None Review of Systems Review of Systems Review of systems:: pertinent systems reviewed and negative unless documented below Review of systems (narrative): Review of Systems: General: No recent weight changes, no fever, no sleep disturbances Respiratory: No cough, no shortness of air, no recurring pulmonary infections Cardiovascular/peripheral vascular: No chest pain, no palpitations, no edema, no shortness of breath Gastrointestinal: No new onset incontinence, normal bowel movements reported Genitourinary: No new onset incontinence Musculoskeletal: Chronic back pain, right shoulder pain Psychiatric: [Normal mood/affect] Neurological: [Denies weakness in extremities], [denies balance issues] Meds Home Medications and Allergies Home Medications ?Medication ?Instructions ?Recorded ?Confirmed ?Type blood-glucose meter (Accu-Chek #1 kit 07/19/21 12/30/22 Rx Jacquelyn Plus Meter) alcohol swabs (BD Alcohol Swabs) See Rx Instructions .Route 07/23/22 12/30/22 Rx .COMPLEX #300 swabs blood sugar diagnostic (Accu-Chek #200 strips 07/23/22 12/30/22 Rx Jacquelyn Plus test strips) duloxetine 60 mg capsule,delayed See Rx Instructions .Route 07/23/22 12/30/22 Rx release .COMPLEX #90 caps omeprazole 40 mg capsule,delayed See Rx Instructions .Route 07/23/22 12/30/22 Rx release .COMPLEX #90 caps furosemide 20 mg tablet See Rx Instructions .Route 11/18/22 12/30/22 Rx .COMPLEX #90 tabs lancets (Accu-Chek Softclix #200 ea 11/18/22 12/30/22 Rx Lancets) famotidine 20 mg tablet See Rx Instructions .Route 12/18/22 12/30/22 Rx .COMPLEX #30 tabs metoclopramide HCl 10 mg tablet See Rx Instructions .Route 12/18/22 12/30/22 Rx .COMPLEX #90 tabs insulin syringe-needle U-100 0.3 #100 ea 12/27/22 12/30/22 Rx mL 30 gauge x 5/16 (Advocate Syringes) ondansetron 8 mg disintegrating 8 mg PO Q8H #30 tabs 12/27/22 12/30/22 Rx tablet sumatriptan succinate 50 mg tablet See Rx Instructions PO .COMPLEX 12/27/22 12/30/22 Rx (Imitrex) #20 tabs levocetirizine 5 mg tablet (Xyzal) 5 mg PO DAILY #90 tabs 12/30/22 12/30/22 Rx lidocaine 5 % topical patch 1 patch topical DAILY #30 ea 12/30/22 12/30/22 Rx (Lidoderm) acetaminophen 300 mg-codeine 30 mg 1 tab PO BID PRN pain #20 tabs 01/24/23 Rx tablet prednisone 20 mg tablet See Rx Instructions .Route 02/11/23 Rx .COMPLEX #10 tabs levothyroxine 100 mcg tablet 100 mcg PO DAILY #90 tabs 03/31/23 Rx atorvastatin 20 mg tablet See Rx Instructions .Route 04/17/23 Rx .COMPLEX #90 tabs ergocalciferol (vitamin D2) 1,250 50,000 unit PO QWEEK #14 caps 04/17/23 Rx mcg (50,000 unit) capsule fluticasone propionate 50 See Rx Instructions .Route 05/15/23 Rx mcg/actuation nasal .COMPLEX #16 mL spray,suspension rimegepant 75 mg disintegrating See Rx Instructions .Route 06/04/23 Rx tablet (Nurtec ODT) .COMPLEX #8 tabs alendronate 70 mg tablet See Rx Instructions .Route 07/08/23 Rx .COMPLEX #14 tabs folic acid 1 mg tablet See Rx Instructions .Route 07/18/23 Rx .COMPLEX #30 tabs potassium chloride 10 mEq See Rx Instructions .Route 09/05/23 Rx capsule,extended release .COMPLEX #60 caps albuterol sulfate 90 mcg/actuation See Rx Instructions .Route 09/08/23 Rx aerosol inhaler .COMPLEX #8.5 ea insulin aspart U-100 100 unit/mL See Rx Instructions .Route 09/17/23 Rx subcutaneous solution (Novolog .COMPLEX #10 mL U-100 Insulin aspart) meclizine 25 mg tablet See Rx Instructions .Route 09/17/23 Rx .COMPLEX #30 tabs promethazine 25 mg rectal See Rx Instructions .Route 09/17/23 Rx suppository .COMPLEX #12 supp amitriptyline 10 mg tablet See Rx Instructions .Route 11/03/23 Rx .COMPLEX #90 tabs New Prescriptions to Start Prescriptions: Allergies Allergy/AdvReac Type Severity Reaction Status Date / Time tizanidine Allergy Mild Hypotension Verified 12/30/22 13:05 baclofen (BACLOFEN) Allergy Unknown Verified 12/30/22 13:05 SHELLFISH (FOOD) Allergy Unknown I-ITCHING Uncoded 12/30/22 13:05 Objective Narrative: Physical Exam: General: Alert and oriented x3, no acute distress, pleasant and cooperative Lungs: Respirations even and unlabored, symmetrical chest expansion Eyes: PERRL Musculoskeletal: Flexion and extension of right shoulder somewhat guarded secondary to pain Neurological: Speech clear, no gross sensory deficit Additional findings Additional findings: FINDINGS: There has been prior shoulder surgery. Nonmetallic screw noted within the humeral head laterally and posteriorly. No evidence of rotator cuff tear. Increased T2 signal with thickening noted involving the supraspinatus and infraspinatus tendons consistent with tendinopathy/tendinosis. The subscapularis and teres minor tendons are intact. Subchondral cystic changes are present involving the humeral head posteriorly. There is a small shoulder joint effusion. Osteoarthritic changes are present at the acromioclavicular joint with bony hypertrophy. There is some fluid in the AC joint and in the periarticular tissues superiorly. The bicipital tendon has a split configuration superiorly but is in place. A small amount of fluid is present within the bicipital tendon sheath. No obvious labral tear. The small amount of fluid is present in the shoulder joint. Small amount of fluid is present in the subdeltoid region and subacromial area. There are osteoarthritic changes of the glenohumeral joint. There is evidence of avascular necrosis of the humeral head. Along the anterior medial aspect of the humeral head there is a curvilinear area of decreased T2 signal with a crescent sign in the subcortical region of the humeral head manifest by increased T2 signal. There is some cortical collapse is well. IMPRESSION: 1. Postsurgical changes of the shoulder. 2. Acromioclavicular arthropathy with fluid in the AC joint and periarticular tissues. Osteoarthritic changes of the glenohumeral joint with superior location of the humeral head with shoulder joint effusion 3. Tendinopathy/tendinosis of the supraspinatus and infraspinatus tendons but no evidence of rotator cuff tear. 4. Split tear of the bicipital tendon. 5. Avascular necrosis of the humeral head. Dictated by: Chaparro Butt MD 04/11/2020 10:33 Chaparro Butt MD in [place] 04/11/2020 10:33 Assessment and Plan *Assessment and plan (1) Low back pain: Status: Acute Category: Medical Code(s): M54.50 - Low back pain, unspecified (2) Right shoulder pain: Status: Acute Category: Medical Code(s): M25.511 - Pain in right shoulder (3) Chronic lumbar radiculopathy: Status: Chronic Category: Medical Code(s): M54.16 - Radiculopathy, lumbar region (4) History of shoulder replacement: Status: Chronic Category: Surgical Code(s): Z96.619 - Presence of unspecified artificial shoulder joint Plan I did discuss with the patient that we are at conservative therapy office and that we do a lot of injections. I did review over with the patient with her chronic history of previous multiple back surgeries that I do believe she overall would have the best improvement with a intrathecal pain pump trial. I did also discuss with her that that is completely at her discretion. Patient was counseled that we do not immediately write scheduled medications for new patients. Patient has stated that she has had imaging at [facility] and in [place]. Patient was counseled that we will see if we can get a copy of these images and we will also go ahead and order x-ray as well as MRI without contrast of her low back. I will discuss with Dr. Carlson regarding possible medication intervention. Patient will return to clinic in 1 month for reevaluation of symptoms and plan of care. Patient has been instructed to contact the clinic with any concerns before the next appointment. Dr. Carlson has reviewed this note and agrees with this plan of care. This note was dictated using voice recognition software and make contain errors or omissions. All injections are used with Lidocaine, Bupivacaine and Depo Medrol. Occasionally urine drug screen is needed to verify patient's compliance with our office pain contract. This is ordered based off specific treatments related to chronic pain with the potential to abuse certain medications.
[2024-10-13 13:45] VITALS: BP 122/75; PULSE 83; RESP 18; O2SAT 98; BMI 20.7
== END 2024-10-13 23:59 | disposition home or self-care (01) ==
PROVIDERS: PCP Physician Assistant; Visit Provider Nurse Practitioner Family
DX: M54.16 Radiculopathy, lumbar region (principal); M54.50 Low back pain, unspecified; M25.511 Pain in right shoulder; Z96.611 Presence of right artificial shoulder joint; Z73.89 Other problems related to life management difficulty; F17.210 Nicotine dependence, cigarettes, uncomplicated; Z79.899 Other long term (current) drug therapy
CPT/HCPCS: 72100; 99202; 99212; G0463

== ENCOUNTER 2024-10-25 16:47 | Outpatient (CLI) | payer MEDICARE, SELFPAY ==
--- NOTE | 2024-10-25 | MR_ITS ---
PROCEDURE INFORMATION: Exam: MR Lumbar Spine Without Contrast Exam date and time: 10/25/2024 5:35 PM Age: 54 years old Clinical indication: Low back pain; Additional info: Lbp TECHNIQUE: Imaging protocol: Magnetic resonance imaging of the lumbar spine without contrast. COMPARISON: CR XR LUMBAR SPINE 2-3V 10/13/2024 12:05 PM FINDINGS: Bones/joints: Left SI joint is fused with screws. Postsurgical changes compatible with left L4 laminectomy. Spinal cord: Visualized cord, conus medullaris and cauda equina are unremarkable without compression. L1-L2: No significant disc bulge or herniation. No severe spinal canal stenosis. No significant neural foraminal narrowing. L2-L3: L2-L3 small posterior disc protrusion without significant spinal canal or neural foraminal stenosis. L3-L4: No significant disc bulge or herniation. No severe spinal canal stenosis. No significant neural foraminal narrowing. L4-L5: Postsurgical changes compatible with posterior fusion with transpedicular screws, vertical stabilizing bars, and intervertebral disc spacers between levels L4-L5. L4-L5 small left subarticular disc protrusion with facet osteophytosis results in moderate left and mild right neural foraminal stenosis without significant spinal canal stenosis. L5-S1: No significant disc bulge or herniation. No severe spinal canal stenosis. No significant neural foraminal narrowing. Soft tissues: Unremarkable. IMPRESSION: 1. Postsurgical changes compatible with posterior fusion with transpedicular screws, vertical stabilizing bars, and intervertebral disc spacers between levels L4-L5. 2. L4-L5 small left subarticular disc protrusion with facet osteophytosis results in moderate left and mild right neural foraminal stenosis without significant spinal canal stenosis.
== END 2024-10-25 23:59 | disposition home or self-care (01) ==
LOC: RAD 16:48
PROVIDERS: PCP Physician Assistant; Visit Provider Nurse Practitioner Family
DX: M54.50 Low back pain, unspecified (principal)
CPT/HCPCS: 72148

== ENCOUNTER 2024-11-10 13:08 | Outpatient (POV) | payer MEDICARE, SELFPAY ==
--- NOTE | 2024-11-10 13:11 | EXP.PAIN.SOA ---
[facility] Disclaimer: The information contained in this section may have been updated after the patient was seen, as this information can be updated by other users. Medical History Anxiety Chronic lumbar radiculopathy Depression Diabetes mellitus Hyperlipidemia (~10/15/17) Hypothyroidism Nausea Family History Other Unknown family medical history Social History Smoking Status: Current every day smoker tobacco type: cigarettes packs per day: 2 alcohol intake: never substance use type: denies use current occupational status: other Travel in the last 8 weeks?: None PM Subjective & Objective Subjective Subjective:: Patient is a pleasant 54-year-old female who presents today for 1 month follow-up. Today she rates her pain 7 out of 10. She denies any new falls or injuries. Patient does state that she still has the chronic low back, neck pain and right shoulder pain. Patient is also following up on her updated lumbar imaging to review over the findings. Patient at our last visit was given a prescription of gabapentin 100 mg 3 times a day. She denies any side effects. Her Richard has been reviewed and is appropriate. Review of Systems: General: No recent weight changes, no fever, no sleep disturbances Respiratory: No cough, no shortness of air, no recurring pulmonary infections Cardiovascular/peripheral vascular: No chest pain, no palpitations, no edema, no shortness of breath Gastrointestinal: No new onset incontinence, normal bowel movements reported Genitourinary: No new onset incontinence Musculoskeletal: Neck pain, low back pain, right shoulder pain Psychiatric: [Normal mood/affect] Neurological: [Denies weakness in extremities], [denies balance issues] Pain at rest (0-10 scale): 7 Objective Objective:: Physical Exam: General: Alert and oriented x3, no acute distress, pleasant and cooperative Lungs: Respirations even and unlabored, symmetrical chest expansion Eyes: PERRL Musculoskeletal: Flexion and extension of cervical [spine] somewhat guarded secondary to pain Neurological: Speech clear, no gross sensory deficit Has patient had previous pain injection?: No Conservative treatment options previously tried: Home exercise plan Length of treatment: Longer than 12 weeks Meds Home Medications and Allergies Home Medications ?Medication ?Instructions ?Recorded ?Confirmed ?Type blood-glucose meter (Accu-Chek #1 kit 07/19/21 11/10/24 Rx Jacquelyn Plus Meter) alcohol swabs (BD Alcohol Swabs) See Rx Instructions .Route 07/23/22 11/10/24 Rx .COMPLEX #300 swabs blood sugar diagnostic (Accu-Chek #200 strips 07/23/22 11/10/24 Rx Jacquelyn Plus test strips) duloxetine 60 mg capsule,delayed See Rx Instructions .Route 07/23/22 11/10/24 Rx release .COMPLEX #90 caps omeprazole 40 mg capsule,delayed See Rx Instructions .Route 07/23/22 11/10/24 Rx release .COMPLEX #90 caps furosemide 20 mg tablet See Rx Instructions .Route 11/18/22 11/10/24 Rx .COMPLEX #90 tabs lancets (Accu-Chek Softclix #200 ea 11/18/22 11/10/24 Rx Lancets) famotidine 20 mg tablet See Rx Instructions .Route 12/18/22 11/10/24 Rx .COMPLEX #30 tabs metoclopramide HCl 10 mg tablet See Rx Instructions .Route 12/18/22 11/10/24 Rx .COMPLEX #90 tabs insulin syringe-needle U-100 0.3 #100 ea 12/27/22 11/10/24 Rx mL 30 gauge x 5/16 (Advocate Syringes) ondansetron 8 mg disintegrating 8 mg PO Q8H #30 tabs 12/27/22 11/10/24 Rx tablet sumatriptan succinate 50 mg tablet See Rx Instructions PO .COMPLEX 12/27/22 11/10/24 Rx (Imitrex) #20 tabs levocetirizine 5 mg tablet (Xyzal) 5 mg PO DAILY #90 tabs 12/30/22 11/10/24 Rx lidocaine 5 % topical patch 1 patch topical DAILY #30 ea 12/30/22 11/10/24 Rx (Lidoderm) acetaminophen 300 mg-codeine 30 mg 1 tab PO BID PRN pain #20 tabs 01/24/23 11/10/24 Rx tablet prednisone 20 mg tablet See Rx Instructions .Route 02/11/23 11/10/24 Rx .COMPLEX #10 tabs levothyroxine 100 mcg tablet 100 mcg PO DAILY #90 tabs 03/31/23 11/10/24 Rx atorvastatin 20 mg tablet See Rx Instructions .Route 04/17/23 11/10/24 Rx .COMPLEX #90 tabs ergocalciferol (vitamin D2) 1,250 50,000 unit PO QWEEK #14 caps 04/17/23 11/10/24 Rx mcg (50,000 unit) capsule fluticasone propionate 50 See Rx Instructions .Route 05/15/23 11/10/24 Rx mcg/actuation nasal .COMPLEX #16 mL spray,suspension rimegepant 75 mg disintegrating See Rx Instructions .Route 06/04/23 11/10/24 Rx tablet (Nurtec ODT) .COMPLEX #8 tabs alendronate 70 mg tablet See Rx Instructions .Route 07/08/23 11/10/24 Rx .COMPLEX #14 tabs folic acid 1 mg tablet See Rx Instructions .Route 07/18/23 11/10/24 Rx .COMPLEX #30 tabs potassium chloride 10 mEq See Rx Instructions .Route 09/05/23 11/10/24 Rx capsule,extended release .COMPLEX #60 caps albuterol sulfate 90 mcg/actuation See Rx Instructions .Route 09/08/23 11/10/24 Rx aerosol inhaler .COMPLEX #8.5 ea insulin aspart U-100 100 unit/mL See Rx Instructions .Route 09/17/23 11/10/24 Rx subcutaneous solution (Novolog .COMPLEX #10 mL U-100 Insulin aspart) meclizine 25 mg tablet See Rx Instructions .Route 09/17/23 11/10/24 Rx .COMPLEX #30 tabs promethazine 25 mg rectal See Rx Instructions .Route 09/17/23 11/10/24 Rx suppository .COMPLEX #12 supp amitriptyline 10 mg tablet See Rx Instructions .Route 11/03/23 11/10/24 Rx .COMPLEX #90 tabs gabapentin 100 mg capsule 100 mg PO TID #90 caps 10/14/24 11/10/24 Rx methocarbamol 500 mg tablet 500 mg PO TID #42 tabs 10/14/24 11/10/24 Rx New Prescriptions to Start Prescriptions: Allergies Allergy/AdvReac Type Severity Reaction Status Date / Time tizanidine Allergy Mild Hypotension Verified 12/30/22 13:05 baclofen (BACLOFEN) Allergy Unknown Verified 12/30/22 13:05 SHELLFISH (FOOD) Allergy Unknown I-ITCHING Uncoded 12/30/22 13:05 Assessment and Plan *Assessment and plan (1) Chronic neck pain: Status: Acute Category: Medical Code(s): M54.2 - Cervicalgia; G89.29 - Other chronic pain (2) Low back pain: Status: Acute Category: Medical Code(s): M54.50 - Low back pain, unspecified (3) Pain in right shoulder: Status: Acute Category: Medical Code(s): M25.511 - Pain in right shoulder Plan I will order updated imaging of her cervical spine as her last imaging was from 2019. Patient will be also increased on her gabapentin to 300 mg 3 times a day and also will be sent in a prescription of Flexeril 10 mg 3 times daily as needed. Patient has had the Flexeril in the past with no side effects so we will send in a full month of this medication. Patient will return to clinic on November 22 for follow-up of her x-ray imaging. We did review over her lumbar imaging. Patient has been instructed to contact the clinic with any concerns before the next appointment. Dr. Carlson has reviewed this note and agrees with this plan of care. This note was dictated using voice recognition software and make contain errors or omissions. All injections are used with Lidocaine, Bupivacaine and dexamethasone. Occasionally urine drug screen is needed to verify patient's compliance with our office pain contract. This is ordered based off specific treatments related to chronic pain with the potential to abuse certain medications.
[2024-11-10 13:54] VITALS: BP 114/68; PULSE 88; RESP 14; O2SAT 99; BMI 20.7
--- NOTE | 2024-11-10 14:09 | XR_ITS ---
FINAL REPORT TECHNIQUE: Cervical spine 3 views CLINICAL HISTORY: Chronic neck pain COMPARISON: None FINDINGS: CERVICAL SPINE: AP, lateral and odontoid views of the cervical spine were obtained. There is no prior exam for comparison. There is no acute fracture or malalignment. Vertebral body height is preserved. Mild anterior osteophytes are present at the C5-6 and C6-7 levels. The precervical soft tissues are normal. IMPRESSION: Mild degenerative change without acute bony abnormality. Reviewed, Interpreted and Dictated by Ezekiel Conway MD Transcribed by Myrna Puentes Authenticated and [facility]
== END 2024-11-10 23:59 | disposition home or self-care (01) ==
PROVIDERS: PCP Physician Assistant; Visit Provider Nurse Practitioner Family
DX: M54.2 Cervicalgia (principal); G89.29 Other chronic pain; M54.50 Low back pain, unspecified; M25.511 Pain in right shoulder; F17.210 Nicotine dependence, cigarettes, uncomplicated; Z79.899 Other long term (current) drug therapy
CPT/HCPCS: 72040; 99212; G0463

== ENCOUNTER 2025-02-14 10:52 | Outpatient (POV) | payer MEDICARE, SELFPAY ==
--- OUTSIDE RECORDS SUMMARY | 2025-02-14 10:55 | XMS_ITS | Clinical Summary ---
Author Organization [facility] Address [address] [place] [address] Care Team Providers Care Bird Cage Assembler Name Role Phone Henri Peraza MD Primary Care Provider Allergies Active Allergy Reactions Criticality Noted Date Comments Baclofen Other (See Comments) High 11/24/2016 SEIZURE Contrast Dye (Echo Or Unknown Ct/Mr) Other (See Comments) High 11/24/2016 Severe hypotension Shellfish-Derived Products Anaphylaxis High 07/15/2018 Tizanidine Other (See Comments) Medium 06/16/2017 Low BP Medications metFORMIN (GLUCOPHAGE) 500 MG tablet Take 500 mg by mouth 2 (Two) Times a Day With Meals. Active atorvastatin (LIPITOR) 10 MG tablet Take 10 mg by mouth Daily. Active furosemide (LASIX) 20 MG tablet Take 20 mg by mouth Daily. Active lisinopril (PRINIVIL,ZESTR IL) 20 MG tablet Take 20 mg by mouth Daily. Active metoprolol succinate XL (TOPROL-XL) 50 MG 24 hr tablet Take 50 mg by mouth Daily. Active Potassium (POTASSIMIN PO) Take 10 mEq by mouth 2 (Two) Times a Day. Active QUEtiapine (SEROquel) 25 MG tablet Take 25 mg by mouth Every Night. Active DULoxetine (CYMBALTA) 60 MG capsule Take 60 mg by mouth Daily. Active cyclobenzaprine (FLEXERIL) 10 MG tablet Take 10 mg by mouth 3 (Three) Times a Day As Needed for Muscle Spasms. Active metoclopramide (REGLAN) 10 MG tablet Take 10 mg by mouth 4 (Four) Times a Day Before Meals & at Bedtime. Pt. Takes 1 po daily as needed Active esomeprazole (nexIUM) 40 MG capsule Take 40 mg by mouth Every Morning Before Breakfast. Active gabapentin (NEURONTIN) 600 MG tablet Take 600 mg by mouth 3 (Three) Times a Day. Active levothyroxine (SYNTHROID, LEVOTHROID) 112 MCG tablet Take 112 mcg by mouth Daily. Active B Complex Vitamins (VITAMIN B COMPLEX PO) Take 1 tablet by mouth Daily. Active insulin aspart (novoLOG FLEXPEN) 100 UNIT/ML solution pen-injector sc pen Inject 1-5 Units under the skin into the appropriate area as directed 3 (Three) Times a Day With Meals. SLIDING SCALE Active lidocaine-prilo isiah (EMLA) 2.5-2.5 % cream Apply topically to the appropriate area as directed Every 2 (Two) Hours As Needed for Mild Pain . Active SUMAtriptan (IMITREX) 100 MG tablet Take one tablet at onset of headache. May repeat dose one time in 2 hours if headache not relieved. Take one tablet at onset of headache. May repeat dose one time in 2 hours if headache not relieved. Active promethazine (PHENERGAN) 25 MG tablet Take 25 mg by mouth Every 6 (Six) Hours As Needed for Nausea or Vomiting (and migraines). Active vitamin D (ERGOCALCIFEROL ) 23829 units capsule capsule Take 50,000 Units by mouth 1 (One) Time Per Week. Active Active Problems Problem Noted Date Diagnosed Date Chronic pain syndrome 07/16/2018 Resolved Problems Problem Noted Date Diagnosed Date Resolved Date Abrasion, forearm with infection 11/24/2016 11/24/2016 ERRONEOUS ENCOUNTER--DISREGARD 04/18/2016 04/18/2016 Social History Tobacco Use Types Packs/Day Years Used Date Smoking Tobacco: Every Day Cigarettes 1 24 Started: 1987; Last attempted to quit: 2011 Smokeless Tobacco: Never Alcohol Use Standard Drinks/Week Comments Yes 0 (1 standard drink = 0.6 oz pur e alcohol) socially Abuse Screen Answer Date Recorded Unsafe at Home or Work/School Not on file Feels Threatened by Someone? Not on file 03/2023 Does Anyone Keep You from Co ntacting Others or Doint Things Outside the Home? Not on file 04/21/2023 Physical Sign of Abuse Present Not on file 1 Housing Stability Answer Date Recorded Current Living Arrangements Not on file 03/2023 Potentially Unsafe Housing Conditions Not on kristal e 04/21/2023 Family and Community Support Answer Wali e Recorded Help with Day-to-Day Activities Not on file 04/21/2023 Lonely or Isolated Not on file 04/21/2023 Employment Answer Date Recorded Do you want help finding or keeping work or a nidia b? Not on file 04/21/2023 Disabilities Answer Date Recorded Concentrating, Remembering, or Making Decisions Difficulty Not on file 04/21/2023 Doing Errands Independently Difficulty Not on fi le 04/21/2023 Education Answer Date Recorded Help with school or training? Not on file Preferred Language Not on file 04/21/2023 Comments No Sex and Gender Information Value Date Recorded Sex Assigned at Not on file Legal Sex Female 10:43 AM EDT Gender Identity Not on file Sexual Orientation Not on file Last Filed Vital Signs Vital Sign Reading Time Taken Comments Blood Pressure 95/60 07/17/2018 3:00 PM EST Pulse 74 07/17/2018 3:00 PM EST Temperature 36.9 C (98.5 F) 07/17/2018 3:00 PM EST Respiratory Rate 16 07/17/2018 3:00 PM EST Oxygen Saturation 99% 07/17/2018 3:00 PM EST Inhaled Oxygen Concentration - - Weight 58.7 kg (129 lb 8 oz) 07/17/2018 5:00 AM EST Height 152.4 cm (5') 07/16/2018 3:08 PM EST Body Mass Index 25.29 07/16/2018 3:08 PM EST Plan of Treatment Health Maintenance Due Date Last Done Comments Annual Gynecologic Pelvic and Breast Exam 1971 TDAP/TD VACCINES (1 - Tdap) 09/24/1990 MAMMOGRAM 2011 COLOGUARD 09/24/2016 COLON CANCER SCREENING 5 YEAR SIGMOIDOSCOPY 09/24/2016 COLONOSCOPY 09/24/2016 COLORECTAL CANCER SCREENING 09/24/2016 CT COLONOGRAPHY 09/24/2016 FECAL OCCULT BLOOD TEST 09/24/2016 FIT Testing (1 year) 09/24/2016 ANNUAL PHYSICAL 11/24/2016 HEPATITIS C SCREENING 11/24/2016 Pneumococcal Vaccine 50+ (1 of 1 - PCV) 09/24/2021 ZOSTER VACCINE (1 of 2) 09/24/2021 COVID-19 Vaccine (1 - 2023- season) 2024 INFLUENZA VACCINE 04/13/2025 Medical Devices Implanted Type Area Music Therapist Device Identifier Shelf Expiration Date Model / Serial / Lot Spinal Cord Stimulator Implant Titanium Clip Left Breast Implant Wax Bone 2.5g - [id number] Implanted:Qty: 1 on 07/16/2018 by Maco العلي MD at [facility] Implant [employer] [id number] / / Insurance MEDICARE ADVANTAGE Advance Directives * CPR (Attempt to Resuscitate) (Latest Code Status on File) Date Activated Date Inactivated Comments 07/16/2018 3:07 PM 07/17/2018 8:31 PM Question Answer Comments Code Status (Patient has no pulse and is not breathing): CPR (Attempt to Resuscitate) Medical Interventions (Patie nt has pulse or is breathing): Full Care Teams Bird Cage Assembler Relationship Specialty Start Date End Date Henri Peraza MD Replaced by [facility] [address] ATTN: [place] [address] PCP - General 12/18/15
--- OUTSIDE RECORDS SUMMARY | 2025-02-14 10:56 | XMS_ITS | Encounter Summary ---
Author Organization Healthcare Address [address] [place] [address] Care Team Providers Care Citrix Lead Name Role Phone Payton Champagne Primary Care Provider [phone] Encounter Details Date Type Department Care Team (Late st Contact Info) Description 08/08/2021 Community [facility] [address] [place] [address] Payton Champagne PA [address] [place] [address] Chronic right shoulder pain (Primary Dx) Social History Tobacco Use Types Packs/Day Years Used Date Smoking Tobacco: Every Day Alcohol Use Standard Drinks/Week Comments Yes 0 (1 standard drink = 0.6 oz pure alcohol) Alcoholic Drinks/day: Occasional alcohol use Comments Unknown Sex and Gender Information Value Date Recorded Sex Assigned at Not on file Legal Sex Female 8:33 PM EDT Gender Identity Not on file Sexual Orientation Not on file COVID-19 Exposure Response Date Recorded In the last month, have you been in contact with someone who was confirmed or suspected to have Coronavirus / COVID-19? No / Unsure 07/25/2021 6:01 PM EST documented as of this encounter Plan of Treatment Not on file documented as of this encounter Visit Diagnoses Diagnosis Chronic right shoulder pain- Primary Pain in joint, shoulder region documented in this encounter Care Teams Citrix Lead Relationship Specialty Start Date End Date Payton Champagne PA [address] [place] [address] PCP - General 07/25/21 documented as of this encounter
--- OUTSIDE RECORDS SUMMARY | 2025-02-14 10:56 | XMS_ITS | Clinical Summary ---
Author Organization Healthcare Address [address] [place] [address] Care Team Providers Care Cloth Printing Utility Worker Name Role Phone Payton Champagne Primary Care Provider [phone] Allergies Active Allergy Reactions Criticality Noted Date Comments Baclofen Hives,Unknown - Lilo ent states they do not know rxn details Medium 06/05/2011 Other Unknown - Patient st ates they do not know rxn details Low 04/02/2016 Shellfish Allergy Unknown - Patient st ates they do not know rxn details,Anaphylaxis High 06/05/2011 Tizanidine Other - please docum ent in the comment field,Unknown - Patient states they do not know rxn details Low 07/30/2017 Medications alendronate (Fosamax) 70 MG tablet Take 70 mg by mouth if needed. 03/13/2020 Active amitriptyline (Elavil) 10 MG tablet Take 10 mg by mouth if needed. 01/17/2020 Active atorvastatin (Lipitor) 20 MG tablet Take 20 mg by mouth if needed. 05/03/2020 Active azithromycin (Zithromax) 250 MG tablet Take 250 mg by mouth if needed. 04/26/2020 Active folic acid (Folvite) 1 MG tablet Take 1 mg by mouth if needed. 02/14/2020 Active furosemide (Lasix) 20 MG tablet Take 1 tablet by mouth every 30 (thirty) days. 04/03/2017 Active gabapentin (Neurontin) 600 MG tablet Take 600 mg by mouth if needed. 05/03/2020 Active gabapentin (Neurontin) 300 MG capsule Take 300 mg by mouth if needed. 12/21/2019 Active ibuprofen (IBU) 400 MG tablet Take 400 mg by mouth if needed. 05/03/2020 Active levothyroxine (Synthroid, Levoxyl) 100 MCG tablet Take 1 tablet by mouth 1 (one) time each day before breakfast. 05/03/2020 Active meloxicam (Mobic) 15 MG tablet Take 1 tablet by mouth 1 (one) time each day with breakfast. 08/25/2017 Active meloxicam (Mobic) 7.5 MG tablet Take 7.5 mg by mouth if needed. 05/18/2020 Active metFORMIN (Glucophage) 500 MG tablet Take 1 tablet by mouth 2 (two) times a day. 05/14/2017 Active omeprazole (PriLOSEC) [address] capsule Take 40 mg by mouth if needed. 05/03/2020 Active potassium chloride CR (Klor-Con) 10 MEQ ER tablet Take 1 tablet by mouth 2 (two) times a day. 04/29/2017 Active potassium chloride CR (Klor-Con M10) 10 MEQ ER tablet Take 1 tablet by mouth 2 (two) times a day. 05/14/2017 Active traMADol (Ultram) 50 MG tablet Take 1 tablet by mouth 3 (three) times a day. 06/06/2020 Active acetaminophen-co deine (Tylenol w/ Codeine #3) 300-30 MG tablet TK 1 T PO Q 8 H PRN P 01/31/2020 Active fluticasone (Flonase) 50 MCG/ACT nasal spray 06/16/2017 Active oxyCODONE (Roxicodone) 5 MG immediate release tablet 05/22/2020 Acti ve triazolam (Halcion) 0.25 MG tablet 04/06/2020 Active potassium chloride ER (Micro-K) 10 MEQ ER capsule 04/26/2020 Active B Rqlrftk-Fldogf-J A (B-COMPLEX PO) 05/03/2020 Ac tive Active Problems Problem Noted Date Diagnosed Date Anemia 08/01/2020 Hypothyroidism 08/01/2020 Osteoporosis 08/01/2020 Shoulder pain 08/06/2017 Chronic low back pain 05/22/2017 Chronic diarrhea 08/28/2016 Edema 04/01/2016 Hypertension 04/01/2016 Diabetes mellitus, type 2 03/27/2016 Microalbuminuria 02/14/2016 Immunizations Immunization Administration Dates Next Due Influenza, Unspecified 06/10/2011 Pneumococcal, Unspecified 06/10/2011 Family History Medical History Relation Name Comments Cardiac disorder Father Heart attack Father FH: heart attac k Diabetes Mother Family history of diabetes mellitus Hyperlipidemia Mother Hypertension Mother Osteoporosis Mother Bone cancer Other 1 Family history of bone cancer Pancreatic cancer Other 2 Family his tory of pancreatic cancer Breast cancer Other 3 FH: breast can cer Colon cancer Other 4 FH: colon cance r Conversions - Other Other 5 congenit al heart problem Lupus Other 6 FH: lupus Stroke Other 7 FH: stroke Relation Name Status Comments Father Mother Other 1 Other 2 Other 3 Other 4 Other 5 Other 6 Other 7 Social History Tobacco Use Types Packs/Day Years [...] Sign Reading Time Taken Comments Blood Pressure 124/73 07/26/2021 1:55 AM EST Pulse 81 07/26/2021 1:55 AM EST Temperature 36.8 C (98.2 F) 07/26/2021 1:55 AM EST Respiratory Rate 18 07/26/2021 1:55 AM EST Oxygen Saturation 98% 07/26/2021 1:55 AM EST Inhaled Oxygen Concentration - - Weight 59 kg (130 lb) 07/25/2021 7:47 PM EST Height 152.4 cm (5') 07/25/2021 7:47 PM EST Body Mass Index 25.39 07/25/2021 7:47 PM EST Plan of Treatment Health Maintenance Due Date Last Done Comments [facility]-Depression Screening 1971 [facility]-Infant/Child/Adol SDOH Screenings 1970 [facility]- SDOH Screenings 09/24/1989 [facility]-Adult SDOH Screenings 09/24/1989 [facility]-DTaP,Tdap,and Td Vaccine s (1 - Tdap) 09/24/1990 [facility]-Hepatitis B Vaccines (1 of 3 - 19+ 3-dose series) 09/24/1990 [facility]-Pap Smear 09/24/1992 [facility]-Cervical Cancer Screening 09/24/2001 [facility]-HPV/Cotest 09/24/2001 CT Colonography 09/24/2016 Colonoscopy 09/24/2016 FIT-DNA 09/24/2016 FIT 09/24/2016 FOBT 09/24/2016 Sigmoidoscopy 09/24/2016 [facility]-Colorectal Cancer Screening 09/24/2016 [facility]-Zoster Vaccines (2 of 2) 02/27/2023 01/02/2023 [id number] Vaccine ( season) 2024 [facility]-Influenza Vaccine (#1) 03/14/202508/06, 08/16/2020, 06/10/2011 [facility]-Pneumococcal Vaccine: 50 + Years Completed 01/02/2023, 08/16/2020, 06/10/2011 HPV Vaccines Aged Out No longer eligi ble based on patient's age to complete this topic [facility]-HIB Vaccines Aged Out No longer e ligible based on patient's age to complete this topic [facility]-Hepatitis A Vaccines Aged Out No longer eligible based on patient's age to complete this topic UKY-IPV Vaccines Aged Out No longer e ligible based on patient's age to complete this topic UKY-Rotavirus Vaccines Aged Out No lo nger eligible based on patient's age to complete this topic Insurance [employer] MEDICARE Care Teams Cloth Printing Utility Worker Relationship Specialty Start Date End Date Payton Champagne PA [address] [place] [address] PCP - General 07/25/21
[2025-02-14 11:08] VITALS: BP 119/69; PULSE 105; RESP 14; O2SAT 99; BMI 20.5
--- NOTE | 2025-02-14 11:20 | EXP.PAIN.SOA ---
[facility] Disclaimer: The information contained in this section may have been updated after the patient was seen, as this information can be updated by other users. Medical History Anxiety Chronic lumbar radiculopathy Depression Diabetes mellitus Hyperlipidemia (~10/15/17) Hypothyroidism Nausea Family History Other Unknown family medical history Social History Smoking Status: Current every day smoker tobacco type: cigarettes packs per day: 2 alcohol intake: never substance use type: denies use current occupational status: other Travel in the last 8 weeks?: None PM Subjective & Objective Subjective Subjective:: Patient is a pleasant 54-year-old female who presents today for follow-up of x-ray of her cervical spine and MRI of her lumbar spine results as well as increasing pain in her shoulder back and hip. She rates her pain today a 7 out of 10. She denies any new trauma or injury. Patient does state that she just has overall chronic pain in multiple areas and it does interfere with his ability perform activities of daily living such as cooking and cleaning. Patient is requesting if we can increase her gabapentin that she is currently on of 300 mg 3 times a day to the 600 mg that she was on previously. Patient is also managed with Flexeril 10 mg 3 times a day from our office. She denies any side effects from the gabapentin or the Flexeril. She is also asking whether or not if we can do fentanyl patches for her chronic pain. Her Richard has been reviewed. Review of Systems: General: No recent weight changes, no fever, no sleep disturbances Respiratory: No cough, no shortness of air, no recurring pulmonary infections Cardiovascular/peripheral vascular: No chest pain, no palpitations, no edema, no shortness of breath Gastrointestinal: No new onset incontinence, normal bowel movements reported Genitourinary: No new onset incontinence Musculoskeletal: Chronic right shoulder pain, neck pain, low back pain Psychiatric: [Normal mood/affect] Neurological: [Denies weakness in extremities], [denies balance issues] Pain at rest (0-10 scale): 7 Objective Objective:: Physical Exam: General: Alert and oriented x3, no acute distress, pleasant and cooperative Lungs: Respirations even and unlabored, symmetrical chest expansion Eyes: PERRL Musculoskeletal: Flexion and extension of cervical [spine] somewhat guarded secondary to pain, [antalgic gait noted] Neurological: Speech clear, no gross sensory deficit Has patient had previous pain injection?: No Conservative treatment options previously tried: Home exercise plan Length of treatment: Longer than 12 weeks Meds Home Medications and Allergies Home Medications ?Medication ?Instructions ?Recorded ?Confirmed ?Type blood-glucose meter (Accu-Chek #1 kit 07/19/21 02/14/25 Rx Jacquelyn Plus Meter) alcohol swabs (BD Alcohol Swabs) See Rx Instructions .Route 07/23/22 02/14/25 Rx .COMPLEX #300 swabs blood sugar diagnostic (Accu-Chek #200 strips 07/23/22 02/14/25 Rx Jacquelyn Plus test strips) duloxetine 60 mg capsule,delayed See Rx Instructions .Route 07/23/22 02/14/25 Rx release .COMPLEX #90 caps omeprazole 40 mg capsule,delayed See Rx Instructions .Route 07/23/22 02/14/25 Rx release .COMPLEX #90 caps furosemide 20 mg tablet See Rx Instructions .Route 11/18/22 02/14/25 Rx .COMPLEX #90 tabs lancets (Accu-Chek Softclix #200 ea 11/18/22 02/14/25 Rx Lancets) famotidine 20 mg tablet See Rx Instructions .Route 12/18/22 02/14/25 Rx .COMPLEX #30 tabs metoclopramide HCl 10 mg tablet See Rx Instructions .Route 12/18/22 02/14/25 Rx .COMPLEX #90 tabs insulin syringe-needle U-100 0.3 #100 ea 12/27/22 02/14/25 Rx mL 30 gauge x 5/16 (Advocate Syringes) ondansetron 8 mg disintegrating 8 mg PO Q8H #30 tabs 12/27/22 02/14/25 Rx tablet sumatriptan succinate 50 mg tablet See Rx Instructions PO .COMPLEX 12/27/22 02/14/25 Rx (Imitrex) #20 tabs levocetirizine 5 mg tablet (Xyzal) 5 mg PO DAILY #90 tabs 12/30/22 02/14/25 Rx lidocaine 5 % topical patch 1 patch topical DAILY #30 ea 12/30/22 02/14/25 Rx (Lidoderm) acetaminophen 300 mg-codeine 30 mg 1 tab PO BID PRN pain #20 tabs 01/24/23 02/14/25 Rx tablet prednisone 20 mg tablet See Rx Instructions .Route 02/11/23 02/14/25 Rx .COMPLEX #10 tabs levothyroxine 100 mcg tablet 100 mcg PO DAILY #90 tabs 03/31/23 02/14/25 Rx atorvastatin 20 mg tablet See Rx Instructions .Route 04/17/23 02/14/25 Rx .COMPLEX #90 tabs ergocalciferol (vitamin D2) 1,250 50,000 unit PO QWEEK #14 caps 04/17/23 02/14/25 Rx mcg (50,000 unit) capsule fluticasone propionate 50 See Rx Instructions .Route 05/15/23 02/14/25 Rx mcg/actuation nasal .COMPLEX #16 mL spray,suspension rimegepant 75 mg disintegrating See Rx Instructions .Route 06/04/23 02/14/25 Rx tablet (Nurtec ODT) .COMPLEX #8 tabs alendronate 70 mg tablet See Rx Instructions .Route 07/08/23 02/14/25 Rx .COMPLEX #14 tabs folic acid 1 mg tablet See Rx Instructions .Route 07/18/23 02/14/25 Rx .COMPLEX #30 tabs potassium chloride 10 mEq See Rx Instructions .Route 09/05/23 02/14/25 Rx capsule,extended release .COMPLEX #60 caps albuterol sulfate 90 mcg/actuation See Rx Instructions .Route 09/08/23 02/14/25 Rx aerosol inhaler .COMPLEX #8.5 ea insulin aspart U-100 100 unit/mL See Rx Instructions .Route 09/17/23 02/14/25 Rx subcutaneous solution (Novolog .COMPLEX #10 mL U-100 Insulin aspart) meclizine 25 mg tablet See Rx Instructions .Route 09/17/23 02/14/25 Rx .COMPLEX #30 tabs promethazine 25 mg rectal See Rx Instructions .Route 09/17/23 02/14/25 Rx suppository .COMPLEX #12 supp amitriptyline 10 mg tablet See Rx Instructions .Route 11/03/23 02/14/25 Rx .COMPLEX #90 tabs gabapentin 100 mg capsule 100 mg PO TID #90 caps 10/14/24 02/14/25 Rx methocarbamol 500 mg tablet 500 mg PO TID #42 tabs 10/14/24 02/14/25 Rx gabapentin 300 mg capsule 300 mg PO TID #90 caps 11/10/24 02/14/25 Rx gabapentin 300 mg capsule 300 mg PO TID #9 caps 12/13/24 02/14/25 Rx cyclobenzaprine 10 mg tablet 10 mg PO TID #90 tabs 02/14/25 Rx gabapentin 400 mg capsule 400 mg PO TID #90 caps 02/14/25 Rx New Prescriptions to Start Prescriptions: cyclobenzaprine Richards,Kaylyn A gabapentin Richards,Kaylyn A Allergies Allergy/AdvReac Type Severity Reaction Status Date / Time tizanidine Allergy Mild Hypotension Verified 12/30/22 13:05 baclofen (BACLOFEN) Allergy Unknown Verified 12/30/22 13:05 SHELLFISH (FOOD) Allergy Unknown I-ITCHING Uncoded 12/30/22 13:05 Assessment and Plan *Assessment and plan (1) Chronic neck pain: Status: Acute Category: Medical Code(s): M54.2 - Cervicalgia; G89.29 - Other chronic pain (2) Low back pain: Status: Acute Category: Medical Code(s): M54.50 - Low back pain, unspecified (3) Pain in right shoulder: Status: Acute Category: Medical Code(s): M25.511 - Pain in right shoulder Plan I did review over with the patient regarding her x-ray imaging of her cervical spine as well as her MRI of her lumbar spine. I will submit for an MRI without contrast of her cervical spine due to the continued ongoing pain. We did discuss still the possibility of injections to see about additional improvement however she states she has done this all before and it did not provide any additional improvement. Patient is not interested in spinal cord stimulator or pump options. I did discuss with the patient that I will discuss with Dr. Carlson regarding the increased gabapentin as well as the fentanyl patches. Patient will be given a 3-month supply of her gabapentin and Flexeril. I did speak with Dr. Carlson and we are not able to do any opioid medications. We would still be offering possible injection therapy as needed. We will increase her gabapentin to 400 mg 3 times a day and send in a 3-month supply of this medication at this dosage. Patient will return to clinic in 3 months for reevaluation of symptoms and plan of care. Patient has been instructed to contact the clinic with any concerns before the next appointment. Dr. Carlson has reviewed this note and agrees with this plan of care. This note was dictated using voice recognition software and make contain errors or omissions. All injections are used with Lidocaine, Bupivacaine and dexamethasone. Occasionally urine drug screen is needed to verify patient's compliance with our office pain contract. This is ordered based off specific treatments related to chronic pain with the potential to abuse certain medications.
== END 2025-02-14 23:59 | disposition home or self-care (01) ==
PROVIDERS: PCP Physician Assistant; Visit Provider Nurse Practitioner Family
DX: M54.2 Cervicalgia (principal); G89.29 Other chronic pain; M54.50 Low back pain, unspecified; M25.511 Pain in right shoulder; Z79.899 Other long term (current) drug therapy
CPT/HCPCS: 99212; G0463

== ENCOUNTER 2025-02-18 14:07 | Outpatient (CLI) | payer MEDICARE, SELFPAY ==
--- OUTSIDE RECORDS SUMMARY | 2025-02-18 14:09 | XMS_ITS | Clinical Summary ---
Author Organization Healthcare Address [address] [place] [address] Care Team Providers Care Communication Center Coordinator Name Role Phone aPyton Champagne Primary Care Provider [phone] Allergies Active Allergy Reactions Criticality Noted Date [...] 10 MEQ ER capsule 04/26/2020 Active B Rcrvyso-Urbhrv-O A (B-COMPLEX PO) 05/03/2020 Ac tive Active [...] [facility]-Zoster Vaccines (2 of 2) 02/27/2023 01/02/2023 [id number] Vaccine ( season) 2024 [facility]-Influenza Vaccine (#1) [...] this topic Insurance [employer] MEDICARE Care Teams Communication Center Coordinator Relationship Specialty Start Date End Date Payton Champagne PA [address] [place] [address] PCP - General 07/25/21
--- OUTSIDE RECORDS SUMMARY | 2025-02-18 14:09 | XMS_ITS | Encounter Summary ---
Author Organization Healthcare Address [address] [place] [address] Care Team Providers Care Structural Welder Name Role Phone Payton Champagne Primary Care Provider [phone] Encounter Details Date Type Department Care Team (Late st Contact Info) Description 08/08/2021 Community [facility] Community Practice [address] [place] [address] Payton Champagne PA [address] [place] [address] Chronic right shoulder pain (Primary [...] region documented in this encounter Care Teams Structural Welder Relationship Specialty Start Date End Date Payton Champagne PA [address] [place] [address] PCP - General 07/25/21 documented as of this encounter
--- OUTSIDE RECORDS SUMMARY | 2025-02-18 14:09 | XMS_ITS | Clinical Summary ---
Author Organization [facility] Address [address] [place] [address] Care Team Providers Care Welder Pipe Making Name Role Phone Henri Peraza MD Primary Care Provider [phone] Allergies Active Allergy Reactions Criticality Noted Date [...] (and migraines). Active vitamin D (ERGOCALCIFEROL ) 25527 units capsule capsule Take 50,000 Units by [...] VACCINE 04/13/2025 Medical Devices Implanted Type Area Fitness Coach Device Identifier Shelf Expiration Date Model / Serial / Lot Spinal Cord Stimulator Implant Titanium Clip Left Breast Implant Wax Bone 2.5g - [id number] Implanted:Qty: 1 on 07/16/2018 by Maco العلي MD at [facility] Implant [employer] DIV OF J AND J [...] pulse or is breathing): Full Care Teams Welder Pipe Making Relationship Specialty Start Date End Date Henri Peraza MD [facility], [id number] [facility] [address] ATTN: [place] [address] PCP - General 12/18/15
[2025-02-18 23:18] LABS: Iron 40 ug/dL (37-170)
[2025-02-18 23:29] LABS: Total Iron Binding Capacity 350 ug/dL (265-497)
[2025-02-18 23:56] LABS: Ferritin 6.13 ng/ml (11.1-264)
== END 2025-02-18 23:59 | disposition home or self-care (01) ==
LOC: LAB 14:07
PROVIDERS: PCP Physician Assistant; Visit Provider Internal Medicine Medical Oncology
DX: D69.6 Thrombocytopenia, unspecified (principal)
CPT/HCPCS: 36415; 82728; 83540; 83550

== ENCOUNTER 2025-03-09 10:53 | Outpatient (CLI) | payer MEDICARE, SELFPAY ==
--- OUTSIDE RECORDS SUMMARY | 2025-03-09 11:04 | XMS_ITS | Clinical Summary ---
Author Organization [facility] Address [address] [place] [address] Care Team Providers Care Banbury Mill Operator Name Role Phone Henri Peraza MD Primary Care Provider [phone] Allergies Active Allergy Reactions Criticality Noted Date [...] (and migraines). Active vitamin D (ERGOCALCIFEROL ) 01854 units capsule capsule Take 50,000 Units by [...] VACCINE 04/13/2025 Medical Devices Implanted Type Area Bootmaker Hand Device Identifier Shelf Expiration Date Model / Serial / Lot Spinal Cord Stimulator Implant Titanium Clip Left Breast Implant Wax Bone 2.5g - [id number] Implanted:Qty: 1 on 07/16/2018 by Maco العلي MD at [facility] Implant [employer] DIV OF J AND J [...] pulse or is breathing): Full Care Teams Banbury Mill Operator Relationship Specialty Start Date End Date Henri Peraza MD [facility] [place] [facility] [address] ATTN: [place] [address] PCP - General 12/18/15
--- OUTSIDE RECORDS SUMMARY | 2025-03-09 11:04 | XMS_ITS | Clinical Summary ---
Author Organization [facility] Address [address] [place] [address] Care Team Providers Care Chair Frame Builder Name Role Phone Payton Champagne Primary Care Provider [phone] Allergies Active Allergy Reactions Criticality Noted Date [...] 10 MEQ ER capsule 04/26/2020 Active B Wvjqgrw-Lujeao-J A (B-COMPLEX PO) 05/03/2020 Ac tive Active [...] UKY-Zoster Vaccines (2 of 2) 02/27/2023 01/02/2023 SIL-OMZIA-44 Vaccine ( season) 2024 UKY-Influenza Vaccine (#1) [...] this topic Insurance [employer] MEDICARE Care Teams Chair Frame Builder Relationship Specialty Start Date End Date Payton Champagne PA [address] [place] [address] PCP - General 07/25/21
--- OUTSIDE RECORDS SUMMARY | 2025-03-09 11:04 | XMS_ITS | Encounter Summary ---
Author Organization [facility] Address [address] [place] [address] Care Team Providers Care Jointer Machine Name Role Phone Payton Champagne Primary Care Provider [phone] Encounter Details Date Type Department Care Team (Late st Contact Info) Description 08/08/2021 Community [facility] [address] [place] [address] Payton Champagne PA [address] [place] [address] Chronic right shoulder pain (Primary [...] region documented in this encounter Care Teams Jointer Machine Relationship Specialty Start Date End Date Payton Champagne PA [address] [place] [address] PCP - General 07/25/21 documented as of this encounter
[2025-03-09] MEDS: ACETAMINOPHEN 325MG TAB 650 MG PO (11:11)
[2025-03-09] MEDS: DEXAMETHASONE 4MG/ML 5ML MDV 8 MG IV (11:11)
[2025-03-09 11:12] VITALS: BP 151/53; PULSE 93; RESP 20; TEMP 36.2; O2SAT 99
[2025-03-09] MEDS: FAMOTIDINE 20MG TABLET 20 MG PO (11:12)
[2025-03-09] MEDS: SODIUM CHLORIDE 0.9% 10ML FLUSH SYRINGE 10 ML IV (11:12)
[2025-03-09 11:41] VITALS: BP 142/59; PULSE 90; RESP 20; O2SAT 99
[2025-03-09] MEDS: IRON DEXTRAN COMPLEX IV (11:42)
[2025-03-09] MEDS: SODIUM CHLORIDE 0.9% IV (11:42)
[2025-03-09 12:11] VITALS: BP 130/57; PULSE 88; RESP 18; O2SAT 98
[2025-03-09 12:43] VITALS: BP 121/71; PULSE 90; RESP 20; O2SAT 99
[2025-03-09 13:13] VITALS: BP 136/62; PULSE 91; RESP 20; O2SAT 99
[2025-03-09 13:43] VITALS: BP 115/65; PULSE 82; RESP 20; O2SAT 98
== END 2025-03-09 13:51 | disposition home or self-care (01) ==
LOC: INF 10:55
PROVIDERS: PCP Physician Assistant; Visit Provider Internal Medicine Medical Oncology
DX: D64.9 Anemia, unspecified (principal); D75.839 Thrombocytosis, unspecified
CPT/HCPCS: 96365; J1100; J1750; J7050

== ENCOUNTER 2025-05-09 09:14 | Outpatient (CLI) | payer MEDICARE, SELFPAY ==
--- NOTE | 2025-05-09 09:15 | XR_ITS ---
FINAL REPORT CLINICAL HISTORY: right shoulder pain, shoulder popping out of socket COMPARISON: None FINDINGS: RIGHT SHOULDER Three views demonstrate fragments of the right shoulder prosthesis. No acute fracture. No definite dislocation but no prior for comparison to assess for hardware positioning. Mild hypertrophic changes at the acromioclavicular joint. The soft tissues are unremarkable. IMPRESSION: No definite dislocation. Comparison with any prior exam is recommended to confirm positioning of hardware. Reviewed, Interpreted and Dictated by Ezekiel Conway MD Transcribed by Arielle Rodriguez Authenticated and [facility]
--- OUTSIDE RECORDS SUMMARY | 2025-05-09 09:24 | XMS_ITS | Clinical Summary ---
Author Organization [facility] Address [address] [place] [address] Care Team Providers Care Zookeeper Name Role Phone Henri Peraza MD Primary [...] (and migraines). Active vitamin D (ERGOCALCIFEROL ) 15976 units capsule capsule Take 50,000 Units by [...] 09/24/2021 ZOSTER VACCINE (1 of 2) 09/24/2021 INFLUENZA VACCINE 02/11/2025 Medical Devices Implanted Type Area Loading Unit Operator Crimping Device Identifier Shelf Expiration Date Model / Serial / Lot Spinal Cord Stimulator Implant Titanium Clip Left Breast Implant Wax Bone 2.5g - [id number] Implanted:Qty: 1 on 07/16/2018 by Maco العلي MD at [facility] Implant [employer] DIV ALEXIA [id number] / / Insurance [facility] MEDICARE ADVANTAGE Advance Directives * CPR (Attempt to Resuscitate) (Latest Code Status on File) Date Activated Date Inactivated Comments 07/16/2018 3:07 PM 07/17/2018 8:31 PM Question Answer Comments Code Status (Patient has no pulse and is not breathing): CPR (Attempt to Resuscitate) Medical Interventions (Patie nt has pulse or is breathing): Full Care Teams Zookeeper Relationship Specialty Start Date End Date Henri Peraza MD [address] [facility] [address] ATTN: [place] [address] PCP - General 12/18/15
--- OUTSIDE RECORDS SUMMARY | 2025-05-09 09:24 | XMS_ITS | Encounter Summary ---
Author Organization [facility] Address [address] [place] [address] Care Team Providers Care Office Associate Name Role Phone Payton Champagne Primary Care Provider [phone] Encounter Details Date Type Department Care Team (Late st Contact Info) Description 08/08/2021 Community [facility] Community Practice [address] [place] [address] Payton Ch[place]gne PA [address] [place] [address] Chronic right shoulder pain (Primary [...] region documented in this encounter Care Teams Office Associate Relationship Specialty Start Date End Date Payton Champagne PA [address] [place] [address] PCP - General 07/25/21 documented as of this encounter
--- OUTSIDE RECORDS SUMMARY | 2025-05-09 09:24 | XMS_ITS | Data Portability ---
Author Organization [employer] [place] [facility] Address [address] [place] [address] Assessment No assessment recorded. Plan of Treatment Reminders Order Date Submit Date Provider Last Modified By Organization Details Last Modified Time Details Appointments None recorded. Lab BMP, serum or plasma [address] [facility], [facility] [place], [address], 5 22:06:35 CBC w/ auto diff 2024 025 [place] [facility]), [address] [place] [address], [address], 5 22:06:35 unlisted lab - toxassure flex 19, [id number] [address] [facility], [facility] [place], [address], 5 22:06:34 HbA1c (hemoglobin A1c), blood [address], [address] [place], [address], 5 13:35:34 microalbumi n/creatinin e, mass ratio, urine [address], [address] [place], [address], 13:35:34 TSH, ultra-sensi tive, serum 2024 025 [facility]), [address] [place], [address], 5 22:06:36 vitamin D, 25-hydroxy, total, serum 2024 025 [facility]), [address] [place], [address], 5 16:08:46 unlisted lab - toxassure flex 19, [id number] 2024 025 [facility]), [address] [place], [address], 5 16:08:40 HIV 1 + 2, meaningful use set 2024 025 [facility]), [address] [place], [address], 5 16:08:47 lipid panel, serum 2024 025 [facility]), [address] [place], [address], 5 16:08:43 HbA1c (hemoglobin A1c), blood 2024 025 [facility]), [address] [place], [address], 5 16:08:45 CMP, serum or plasma 2024 025 [facility]), [facility] [place], [address], 5 16:08:42 CBC w/ auto diff 2024 025 [facility]), [address] [place] [address], [address], 5 16:08:41 Hepatitis C IgG Ab, qual, serum 2024 025 [place] [facility] [address] [place], [address], 5 16:08:44 TSH, ultra-sensi tive, serum 2024 025 [place] [facility]), [address] [place], [address], 5 16:08:46 Referral pain management referral - first available appt 2024 025 [facility], [address], [address], [place], [address], 13:26:39 Procedures None recorded. Surgeries None recorded. Imaging MAMMO, screening, bilateral [address] (Scheduling), [address], [place], [address], 10:55:05 DEXA [address] Centralized Scheduling, [address] , [place], [address], 13:58:18 Medication Orders nystatin 100,000 unit/mL oral suspension 2024 025 [facility], [address] [place], [address], 5 13:46:59 prednisone 20 mg tablet 2024 025 [facility], [address] [place], [address], 5 05:01:43 prednisone 20 mg tablet 2024 025 [facility], [address] [place] [address], [address], 5 05:01:43 amitriptyli ne 10 mg tablet [address] [facility], [address] [place] [address], [address], 09:53:10 Flonase Allergy Relief 50 mcg/actuati on nasal spray,suspe nsion 2024 025 [facility], [address] [place] [address], [address], 5 13:15:14 loratadine 10 mg tablet 2024 025 [facility], [address] [place] [address], [address], 5 13:15:15 Fosamax 70 mg tablet 2024 025 [facility], [address] [place] [address], [address], 13:18:58 calcium 500 mg (as calcium carbonate 1,250 mg) tablet 2024 025 [facility] [address], [address] [place] [address], [address], 5 13:18:57 Airsupra 90 mcg-80 mcg/actuati on HFA aerosol inhaler 2024 025 [facility] [address], [address] [place] [address], [address], 5 16:53:19 albuterol sulfate HFA 90 mcg/actuati on aerosol inhaler 2024 025 [facility] [address], [address] [place] [address], [address], 5 16:53:14 promethazin e 25 mg rectal suppository 2024 025 [facility], [address] [place], [address], 12:48:29 Prozac 40 mg capsule 2024 025 [facility], [address] [place], [address], 11:00:30 Lasix 20 mg tablet 2024 025 [facility], [address] [place], [address], 13:15:45 famotidine 20 mg tablet 2024 025 [facility], [address] [place], [address], 13:17:33 omeprazole 40 mg capsule,del ayed release 2024 025 [facility], [address] [place], [address], 13:17:35 Reglan 10 mg tablet 2024 025 [facility], [address] [place], [address], 13:17:37 atorvastati n 20 mg tablet 2024 025 [facility], [address] [place], [address], 13:11:41 ergocalcife rol (vitamin D2) 1,250 mcg (50,000 unit) capsule 2024 025 [facility], [address] [place], [address], 13:12:50 cholecalcif everett (vitamin D3) 50 mcg (2,000 unit) capsule 2024 025 [facility], [address] [place], [address], 13:12:49 alcohol swabs 2024 025 [facility], [address] [place], [address], 11:05:14 levothyroxi ne 100 mcg tablet 2024 025 [facility], [address] [place], [address], 12:48:03 potassium chloride ER 10 mEq tablet,exte nded release 2024 025 [facility], [address] [place], [address], 17:40:16 Patient TargetsNo targets recorded. Patient Instructions Encounter Date Encounter Id Patient Instructions Last Modified By Organization Details Last Modified Time 09/30/2024 [id number] allergies: care instructions [email or web address] Not available 09/30/2024 11:02:58 osteoporosis: ca re instructions [email or web address] Not available 09/30/2024 11:02:59 chronic obstruct diego pulmonary disease (COPD): care instructions Not available 09/30/2024 13:18:07 learning about c opd and how to prevent lung infections Not available 09/30/2024 13:18:08 chronic pain: ca re instructions [email or web address] Not available 09/30/2024 11:02:59 nausea and vomit ing: care instructions [id number] Not available 09/30/2024 11:02:58 high blood press ure: care instructions [email or web address] Not available 09/30/2024 11:02:58 learning about h igh blood pressure [email or web address] Not available 09/30/2024 11:02:58 learning about m ood disorders [email or web address] Not available 09/30/2024 11:00:22 HIV testing: car e instructions [email or web address] Not available 09/30/2024 11:43:36 gastroesophageal reflux disease (GERD): care instructions [email or web address] Not available 09/30/2024 11:02:58 high cholesterol : care instructions Not available 09/30/2024 11:02:58 folate deficienc y anemia: care instructions [email or web address] Not available 09/30/2024 11:02:58 type 2 diabetes: care instructions [email or web address] Not available 09/30/2024 11:02:58 Learning About Checking Your Blood Sugar [email or web address] Not available 09/30/2024 11:05:06 hypothyroidism: care instructions Not available 09/30/2024 11:02:59 hypokalemia: car e instructions [email or web address] Not available 09/30/2024 11:02:58 11/02/2024 [id number] mammogram: about this test [email or web address] Not available 11/02/2024 13:09:36 02/03/2025 [id number] candidiasis: car e instructions [email or web address] Not available 02/03/2025 13:46:53 learning about t ype 2 diabetes [email or web address] Not available 02/03/2025 13:35:34 type 2 diabetes: care instructions [email or web address] Not available 02/03/2025 13:35:34 hypothyroidism: care instructions [email or web address] Not available 02/03/2025 14:15:17 Reason for Referral Pain Management Referral for Chronic pain first available appt Referring Physician: Payton Champagne, Family Medicine, Encounter Date: 09/30/2024 Results Created Date Observation Date Name Description Value Unit Range Abnormal Flag Note LastModifiedBy Organization Detail LastModifiedTime 10/01/1910/05/2024 TOXAS SURE FLEX 19, UR summary report FINAL ===== ===== ===== ===== ===== ===== ===== ===== ===== ===== ===== ===== ===== === ToxAs sure Flex 19, Ur ===== ===== ===== ===== ===== ===== ===== ===== ===== ===== ===== ===== ===== === Test Resul t Flag Units NO DRUGS DETEC KATYA. ===== ===== ===== ===== ===== ===== ===== ===== ===== ===== ===== ===== ===== === Test Resul t Flag Units Ref Range Creat inine 142 mg/dL >=20 ===== ===== ===== ===== ===== ===== ===== ===== ===== ===== ===== ===== ===== === Decla red Medic ation s: Medic ation list was not provi ded. ===== ===== ===== ===== ===== ===== ===== ===== ===== ===== ===== ===== ===== === For clini beth consu ltati on, pleas e call . ===== ===== ===== ===== ===== ===== ===== ===== ===== ===== ===== ===== ===== === Not Available [facility] ([facility]) [address] [facility], [place], [address], 10/05/2024 16:08:40 10/01/19 25 10/05/2024 TOXAS SURE FLEX 19, UR pdf . Not Available [facility] ([facility]) [address] [facility], [place], [address], 10/05/2024 16:08:40 10/01/19 25 10/05/2024 TOXAS SURE FLEX 19, UR creatinine 142 mg/dL REFER ENCE RANGE : Ref Range >=20 Not Available [facility] ([facility]) [address] [place], [address], 10/05/2024 16:08:40 10/01/19 25 10/05/2024 TOXAS SURE FLEX 19, UR amphetamines ia NEGATI VE NG/mL cutoff :300 Not Available [facility] ([facility]) [address] [place], [address], 10/05/2024 16:08:40 10/01/19 25 10/05/2024 TOXAS SURE FLEX 19, UR benzodiazepi karlos NEGATI VE Not Available [facility] ([facility]) [address] [place], [address], 10/05/2024 16:08:40 10/01/19 25 10/05/2024 TOXAS SURE FLEX 19, UR diazepam NOT DETECT ED NG/mg _crea t Not Available [facility] ([facility]) [address] [place], [address], 10/05/2024 16:08:40 10/01/19 25 10/05/2024 TOXAS SURE FLEX 19, UR desmethyldia zepam NOT DETECT ED NG/mg _crea t Not Available [facility] ([facility]) [address] [place], [address], 10/05/2024 16:08:40 10/01/19 25 10/05/2024 TOXAS SURE FLEX 19, UR oxazepam NOT DETECT ED NG/mg _crea t Not Available [facility] ([facility]) [address] [place], [address], 10/05/2024 16:08:40 10/01/19 25 10/05/2024 TOXAS SURE FLEX 19, UR temazepam NOT DETECT ED NG/mg _crea t Expec katya metab olism of benzo diaze pine class drugs : Paren t Drug Detec katya Metab olite s ----- ----- - ----- ----- ----- ----- Diaze breezy: Desme thyld iazep am, Temaz epam, Oxaze breezy Chlor diaze poxid e: Desme thyld iazep am, Oxaze breezy Clora zepat e: Desme thyld iazep am, Oxaze breezy Halaz epam: Desme thyld iazep am, Oxaze breezy Temaz epam: Oxaze breezy Oxaze breezy: None Not Available [facility] ([facility]) [address] [place], [address], 10/05/2024 16:08:40 10/01/19 25 10/05/2024 TOXAS SURE FLEX 19, UR alprazolam NOT DETECT ED NG/mg _crea t Not Available [facility] ([facility]) [address] [place], [address], 10/05/2024 16:08:40 10/01/19 25 10/05/2024 TOXAS SURE FLEX 19, UR alpha-hydrox yalprazolam NOT DETECT ED NG/mg _crea t Not Available [facility] ([facility]) [address] [place], [address], 10/05/2024 16:08:40 10/01/19 25 10/05/2024 TOXAS SURE FLEX 19, UR desalkylflur azepam NOT DETECT ED NG/mg _crea t Not Available [facility] ([facility]) [address] [place], [address], 10/05/2024 16:08:40 10/01/19 25 10/05/2024 TOXAS SURE FLEX 19, UR lorazepam NOT DETECT ED NG/mg _crea t Not Available [facility] ([facility]) [address] [place], [address], 10/05/2024 16:08:40 10/01/19 25 10/05/2024 TOXAS SURE FLEX 19, UR alpha-hydrox ytriazolam NOT DETECT ED NG/mg _crea t Not Available [facility] ([facility]) [address] [place], [address], 10/05/2024 16:08:40 10/01/19 25 10/05/2024 TOXAS SURE FLEX 19, UR clonazepam NOT DETECT ED NG/mg _crea t Not Available [facility] ([facility]) [address] [place], [address], 10/05/2024 16:08:40 10/01/19 25 10/05/2024 TOXAS SURE FLEX 19, UR 7-aminoclona zepam NOT DETECT ED NG/mg _crea t Not Available [facility] ([facility]) [address] [place], [address], 10/05/2024 16:08:40 10/01/19 25 10/05/2024 TOXAS SURE FLEX 19, UR midazolam NOT DETECT ED NG/mg _crea t Not Available [facility] ([facility]) [address] [place], [address], 10/05/2024 16:08:40 10/01/19 25 10/05/2024 TOXAS SURE FLEX 19, UR alpha-hydrox ymidazolam NOT DETECT ED NG/mg _crea t Not Available [facility] ([facility]) [address] [place], [address], 10/05/2024 16:08:40 10/01/1910/05/2024 TOXAS SURE FLEX 19, UR flunitrazepa m NOT DETECT ED NG/mg _crea t Not Available [facility] ([facility]) [address] [place], [address], 10/05/2024 16:08:40 10/01/19 25 10/05/2024 TOXAS SURE FLEX 19, UR desmethylflu nitrazepam NOT DETECT ED NG/mg _crea t Not Available [facility] ([facility]) [address] [place], [address], 10/05/2024 16:08:40 10/01/19 25 10/05/2024 TOXAS SURE FLEX 19, UR cocaine metabolite ia NEGATI VE NG/mL cutoff :150 Not Available [facility] ([facility]) [address] [place], [address], 10/05/2024 16:08:40 10/01/19 25 10/05/2024 TOXAS SURE FLEX 19, UR ethanol biomarkers ia NEGATI VE NG/mL cutoff :500 Not Available [facility] ([facility]) [address] [place], [address], 10/05/2024 16:08:40 10/01/19 25 10/05/2024 TOXAS SURE FLEX 19, UR cannabinoids ia NEGATI VE NG/mL cutoff :20 Not Available [facility] ([facility]) [address] [place], [address], 10/05/2024 16:08:40 10/01/19 25 10/05/2024 TOXAS SURE FLEX 19, UR 6-acetylmorp patrick ia NEGATI VE NG/mL cutoff :10 Not Available [facility] ([facility]) [address] [place], [address], 10/05/2024 16:08:40 10/01/19 25 10/05/2024 TOXAS SURE FLEX 19, UR opiate class ia NEGATI VE NG/mL cutoff :100 Not Available [facility] ([facility]) [address] [place], [address], 10/05/2024 16:08:40 10/01/19 25 10/05/2024 TOXAS SURE FLEX 19, UR oxycodone class ia NEGATI VE NG/mL cutoff :100 Not Available [facility] ([facility]) [address] [place], [address], 10/05/2024 16:08:40 10/01/19 25 10/05/2024 TOXAS SURE FLEX 19, UR methadone ia NEGATI VE NG/mL cutoff :100 Not Available [facility] ([facility]) [address] [place], [address], 10/05/2024 16:08:40 10/01/19 25 10/05/2024 TOXAS SURE FLEX 19, UR methadone mtb ia NEGATI VE NG/mL cutoff :100 Not Available [facility] ([facility]) [address] [place], [address], 10/05/2024 16:08:40 10/01/19 25 10/05/2024 TOXAS SURE FLEX 19, UR buprenorphin e ia NEGATI VE NG/mL cutoff :5.0 Not Available [facility] ([facility]) [address] [place], [address], 10/05/2024 16:08:40 10/01/19 25 10/05/2024 TOXAS SURE FLEX 19, UR fentanyl ia NEGATI VE NG/mL cutoff :2.0 Not Available [facility] ([facility]) [address] [place], [address], 10/05/2024 16:08:40 10/01/19 25 10/05/2024 TOXAS SURE FLEX 19, UR tapentadol ia NEGATI VE NG/mL cutoff :200 Not Available [facility] ([facility]) [address] [place], [address], 10/05/2024 16:08:40 10/01/19 25 10/05/2024 TOXAS SURE FLEX 19, UR propoxyphene ia NEGATI VE NG/mL cutoff :300 Not Available [facility] ([facility]) [address] [place], [address], 10/05/2024 16:08:40 10/01/19 25 10/05/2024 TOXAS SURE FLEX 19, UR tramadol ia NEGATI VE NG/mL cutoff :200 Not Available [facility] ([facility]) [address] [place], [address], 10/05/2024 16:08:40 10/01/19 25 10/05/2024 TOXAS SURE FLEX 19, UR methylphenid ate ia NEGATI VE NG/mL cutoff :100 Not Available [facility] ([facility]) [address] [place], [address], 10/05/2024 16:08:40 10/01/19 25 10/05/2024 TOXAS SURE FLEX 19, UR barbiturates ia NEGATI VE NG/mL cutoff :200 Not Available [facility] ([facility]) [address] [place], [address], 10/05/2024 16:08:40 10/01/19 25 10/05/2024 TOXAS SURE FLEX 19, UR phencyclidin e ia NEGATI VE NG/mL cutoff :25 Not Available [facility] ([facility]) [address] [place], [address], 10/05/2024 16:08:40 10/01/19 25 10/05/2024 TOXAS SURE FLEX 19, UR gabapentin ia NEGATI VE ug/mL cutoff :1.0 Not Available [facility] ([facility]) [address] [place], [address], 10/05/2024 16:08:40 10/01/19 25 10/05/2024 TOXAS SURE FLEX 19, UR anticonvulsa nts NEGATI VE Not Available [facility] ([facility]) [address] [place], [address], 10/05/2024 16:08:40 10/01/19 25 10/05/2024 TOXAS SURE FLEX 19, UR pregabalin NOT DETECT ED Not Available [facility] ([facility]) [address] [place], [address], 10/05/2024 16:08:40 10/01/19 25 10/05/2024 TOXAS SURE FLEX 19, UR carisoprodol ia NEGATI VE NG/mL cutoff :100 Not Available [facility] ([facility]) [address] [place], [address], 10/05/2024 16:08:40 10/01/1910/01/2024 CBC WITH DIFFE RENTI AL/PL ATELE T WBC 11.7 x10e3 /uL 3.4-10 .8 above high normal Not Available [facility] ([facility]) [address] [place], [address], 10/05/2024 16:08:41 10/01/19 25 10/01/2024 CBC WITH DIFFE RENTI AL/PL ATELE T RBC 3.89 x10e6 /uL 3.77-5 .28 normal Not Available [facility] ([facility]) [address] [place], [address], 10/05/2024 16:08:41 10/01/1910/01/2024 CBC WITH DIFFE RENTI AL/PL ATELE T hemoglobin 11.9 g/dL 11.1-1 5.9 normal Not Available [facility] ([facility]) [address] [place], [address], 10/05/2024 16:08:41 10/01/1910/01/2024 CBC WITH DIFFE RENTI AL/PL ATELE T hematocrit 36.0 % 34.0-4 6.6 normal Not Available [facility] ([facility]) [address] [place], [address], 10/05/2024 16:08:41 10/01/19 25 10/01/2024 CBC WITH DIFFE RENTI AL/PL ATELE T MCV 93 fL 79-97 normal Not Available [facility] ([facility]) [address] [place], [address], 10/05/2024 16:08:41 10/01/19 25 10/01/2024 CBC WITH DIFFE RENTI AL/PL ATELE T MCH 30.6 pg 26.6-3 3.0 normal Not Available [facility] ([facility]) [address] [facility], [place], [address], 10/05/2024 16:08:41 10/01/19 25 10/01/2024 CBC WITH DIFFE RENTI AL/PL ATELE T MCHC 33.1 g/dL 31.5-3 5.7 normal Not Available [facility] ([facility]) [address] [place], [address], 10/05/2024 16:08:41 10/01/19 25 10/01/2024 CBC WITH DIFFE RENTI AL/PL ATELE T RDW 14.3 % 11.7-1 5.4 Not Available [facility] ([facility]) [address] [facility], [place], [address], 10/05/2024 16:08:41 10/01/19 25 10/01/2024 CBC WITH DIFFE RENTI AL/PL ATELE T platelets 644 x10e3 /uL 150-45 0 above high normal Not Available [facility] ([facility]) [address] [place], [address], 10/05/2024 16:08:41 10/01/19 25 10/01/2024 CBC WITH DIFFE RENTI AL/PL ATELE T neutrophils 68 % not estab. normal Not Available [facility] ([facility]) [address] [place], [address], 10/05/2024 16:08:41 10/01/19 25 10/01/2024 CBC WITH DIFFE RENTI AL/PL ATELE T lymphs 23 % not estab. normal Not Available [facility] ([facility]) [address] [place], [address], 10/05/2024 16:08:41 10/01/19 25 10/01/2024 CBC WITH DIFFE RENTI AL/PL ATELE T monocytes 6 % not estab. normal Not Available [facility] ([facility]) [address] [facility], [place], [address], 10/05/2024 16:08:41 10/01/19 25 10/01/2024 CBC WITH DIFFE RENTI AL/PL ATELE T eos 2 % not estab. normal Not Available [facility] ([facility]) [address] [place], [address], 10/05/2024 16:08:41 10/01/1910/01/2024 CBC WITH DIFFE RENTI AL/PL ATELE T basos 1 % not estab. normal Not Available [facility] ([facility]) [address] [place], [address], 10/05/2024 16:08:41 10/01/19 25 10/01/2024 CBC WITH DIFFE RENTI AL/PL ATELE T immature cells [employer] Not Available [facility] ([facility]) [address] [place], [address], 10/05/2024 16:08:41 10/01/19 25 10/01/2024 CBC WITH DIFFE RENTI AL/PL ATELE T neutrophils (absolute) 7.8 x10e3 /uL 1.4-7. 0 above high normal Not Available [facility] ([facility]) [address] [place], [address], 10/05/2024 16:08:41 10/01/19 25 10/01/2024 CBC WITH DIFFE RENTI AL/PL ATELE T lymphs (absolute) 2.7 x10e3 /uL 0.7-3. 1 normal Not Available [facility] ([facility]) [address] [place], [address], 10/05/2024 16:08:41 10/01/19 10/01/2024 CBC WITH DIFFE RENTI AL/PL ATELE T monocytes(ab solute) 0.7 x10e3 /uL 0.1-0. 9 normal Not Available [facility] ([facility]) [address] [facility], [place], [address], 10/05/2024 16:08:41 10/01/19 25 10/01/2024 CBC WITH DIFFE RENTI AL/PL ATELE T eos (absolute) 0.3 x10e3 /uL 0.0-0. 4 normal Not Available [facility] ([facility]) [address] [place], [address], 10/05/2024 16:08:41 10/01/19 25 10/01/2024 CBC WITH DIFFE RENTI AL/PL ATELE T baso (absolute) 0.2 x10e3 /uL 0.0-0. 2 normal Not Available [facility] ([facility]) [address] [place], [address], 10/05/2024 16:08:41 10/01/19 25 10/01/2024 CBC WITH DIFFE RENTI AL/PL ATELE T immature granulocytes 0 % not estab. Not Available [facility] ([facility]) [address] [place], [address], 10/05/2024 16:08:41 10/01/19 25 10/01/2024 CBC WITH DIFFE RENTI AL/PL ATELE T immature grans (abs) 0.0 x10e3 /uL 0.0-0. 1 Not Available [facility] ([facility]) [address] [place], [address], 10/05/2024 16:08:41 10/01/19 25 10/01/2024 CBC WITH DIFFE RENTI AL/PL ATELE T NRBC [employer] Not Available [facility] ([facility]) [address] [place], [address], 10/05/2024 16:08:41 10/01/19 25 10/01/2024 CBC WITH DIFFE RENTI AL/PL JOSÉLE T hematology comments: [employer] Not Available [facility] ([facility]) [address] [facility], [place], [address], 10/05/2024 16:08:41 10/01/19 25 10/01/2024 COMP. METAB OLIC PANEL (14) glucose 97 mg/dL 70-99 normal Not Available [facility] ([facility]) [address] [place], [address], 10/05/2024 16:08:42 10/01/19 25 10/01/2024 COMP. METAB OLIC PANEL (14) BUN 10 mg/dL 6-24 normal Not Available [facility] ([facility]) [address] [place], [address], 10/05/2024 16:08:42 10/01/19 25 10/01/2024 COMP. METAB OLIC PANEL (14) creatinine 0.97 mg/dL 0.57-1 .00 normal Not Available [facility] ([facility]) [address] [place], [address], 10/05/2024 16:08:42 10/01/19 25 10/01/2024 COMP. METAB OLIC PANEL (14) eGFR 70 mL/mi n/1.7 3 >59 normal Not Available [facility] ([facility]) [address] [facility], [place], [address], 10/05/2024 16:08:42 10/01/19 25 10/01/2024 COMP. METAB OLIC PANEL (14) BUN/creatini ne ratio 10 9-23 normal Not Available [facility] ([facility]) [address] [place], [address], 10/05/2024 16:08:42 10/01/19 25 10/01/2024 COMP. METAB OLIC PANEL (14) sodium 139 mmol/ L 134-14 4 normal Not Available [facility] ([facility]) [address] [facility] [place], [address], 10/05/2024 16:08:42 10/01/19 25 10/01/2024 COMP. METAB OLIC PANEL (14) potassium 5.3 mmol/ L 3.5-5. 2 above high normal Not Available [facility] ([facility]) [address] [facility] [place], [address], 10/05/2024 16:08:42 10/01/19 25 10/01/2024 COMP. METAB OLIC PANEL (14) chloride 102 mmol/ L 96-106 normal Not Available [facility] ([facility]) [address] [facility] [place], [address], 10/05/2024 16:08:42 10/01/19 25 10/01/2024 COMP. METAB OLIC PANEL (14) carbon dioxide, total 24 mmol/ L 20-29 normal Not Available [facility] ([facility]) [address] [facility] [place], [address], 10/05/2024 16:08:42 10/01/19 25 10/01/2024 COMP. METAB OLIC PANEL (14) calcium 9.9 mg/dL 8.7-10 .2 normal Not Available [facility] ([facility]) [address] [place], [address], 10/05/2024 16:08:42 10/01/19 25 10/01/2024 COMP. METAB OLIC PANEL (14) protein, total 6.9 g/dL 6.0-8. 5 normal Not Available [facility] ([facility]) [address] [place], [address], 10/05/2024 16:08:42 10/01/19 25 10/01/2024 COMP. METAB OLIC PANEL (14) albumin 4.2 g/dL 3.8-4. 9 normal Not Available [facility] ([facility]) [address] [facility] [place], [address], 10/05/2024 16:08:42 10/01/19 25 10/01/2024 COMP. METAB OLIC PANEL (14) globulin, total 2.7 g/dL 1.5-4. 5 Not Available [facility] ([facility]) [address] [facility] [place], [address], 10/05/2024 16:08:42 10/01/19 25 10/01/2024 COMP. METAB OLIC PANEL (14) bilirubin, total <0.2 mg/dL 0.0-1. 2 Not Available [facility] ([facility]) [address] [facility] [place], [address], 10/05/2024 16:08:42 10/01/19 25 10/01/2024 COMP. METAB OLIC PANEL (14) alkaline phosphatase 84 IU/L 44-121 normal Not Available [facility] ([facility]) [address] [facility] [place], [address], 10/05/2024 16:08:42 10/01/19 25 10/01/2024 COMP. METAB OLIC PANEL (14) AST (SGOT) 18 IU/L 0-40 normal Not Available [facility] ([facility]) [address] [facility] [place], [address], 10/05/2024 16:08:42 10/01/19 25 10/01/2024 COMP. METAB OLIC PANEL (14) ALT (SGPT) 8 IU/L 0-32 normal Not Available [facility] ([facility]) [address] [facility] [place], [address], 10/05/2024 16:08:42 10/01/19 25 10/01/2024 LIPID PANEL cholesterol, total 214 mg/dL 100-19 9 above high normal Not Available [facility] ([facility]) [address] [place], [address], 10/05/2024 16:08:43 10/01/19 25 10/01/2024 LIPID PANEL triglyceride s 60 mg/dL 0-149 normal Not Available [facility] ([facility]) [address] [facility], [place], [address], 10/05/2024 16:08:43 10/01/19 25 10/01/2024 LIPID PANEL HDL cholesterol 66 mg/dL >39 normal Not Available [facility] ([facility]) [address] [place], [address], 10/05/2024 16:08:43 10/01/19 25 10/01/2024 LIPID PANEL VLDL cholesterol beth 11 mg/dL 5-40 Not Available [facility] ([facility]) [address] [place], [address], 10/05/2024 16:08:43 10/01/19 25 10/01/2024 LIPID PANEL LDL chol calc ([facility]) 137 mg/dL 0-99 above high normal Not Available [facility] ([facility]) [address] [place], [address], 10/05/2024 16:08:43 10/01/19 25 10/01/2024 LIPID PANEL LDL calc comment: [employer] Not Available [facility] ([facility]) [address] [place], [address], 10/05/2024 16:08:43 10/01/19 25 10/01/2024 HCV ANTIB BECKA CASCA DE(PC R/GEN O) HCV Ab NON REACTI VE non reacti ve Not Available [facility] ([facility]) [address] [place], [address], 10/05/2024 16:08:44 10/01/19 25 10/01/2024 HCV ANTIB BECKA CASCA DE(PC R/GEN O) interpretati on: COMMEN T Not infec katya with HCV unles s early or acute infec tion is suspe cted (whic h may be delay ed in an immun ocomp romis ed indiv idual ), or other evide nce exist s to indic ate HCV infec tion. Not Available [facility] ([facility]) [address] [facility], [place], [address], 10/05/2024 16:08:44 10/01/1910/01/2024 HEMOG LOBIN A1C hemoglobin A1C 6.1 % 4.8-5. 6 above high normal Predi abete s: 5.7 - 6.4 Diabe daja: >6.4 Glyce mojgan contr ol for adult s with diabe daja: <7.0 Not Available [facility] ([facility]) [address] [facility], [place], [address], 10/05/2024 16:08:45 10/01/1910/01/2024 TSH TSH 55.800 uIU/m L 0.450- 4.500 above high normal Not Available [facility] ([facility]) [address] [facility], [place], [address], 10/05/2024 16:08:46 10/01/1910/01/2024 VITAM IN D, 25-HY DROXY vitamin D, 25-hydroxy 36.0 NG/mL 30.0-1 00.0 Vitam in D defic iency has been defin ed by the Insti tute of Medic ine and an Endoc rine Socie ty pract ice guide line as a level of serum 25-OH vitam in D less than 20 ng/mL (1,2) . The Endoc rine Socie ty went on to furth er defin e vitam in D insuf ficie ncy as a level betwe en 21 and 29 ng/mL (2). 1. IOM (Inst itute of Medic ine). 2010. Dieta ry refer ence intak es for calci um and D. Alden mars [place]: The Natio nal [facility] Press . 2. Meenakshi AYERS, Marianne pino [place], Ming off-F errar i FROST, et al. Evalu ation , treat ment, and preve ntion of vitam in D defic iency : an Endoc rine Socie ty clini beth pract ice guide line. JCEM. 2010; 96(7) :1911 -30. Not Available [facility] ([facility]) [address] [place], [address], 10/05/2024 16:08:46 10/01/1910/01/2024 HIV AB/P2 4 AG WITH REFLE X HIV Ab/P24 Ag screen NON REACTI VE non reacti ve HIV-1 /HIV- 2 antib odies and HIV-1 p24 antig en were NOT detec katya. There is no labor atory evide nce of HIV infec tion. HIV Negat diego Not Available [facility] ([facility]) [address] [facility], [place], [address], 10/05/2024 16:08:47 10/22/1910/22/2024 CBC WITH DIFFE RENTI AL/PL ATELE T WBC 8.4 x10e3 /uL 3.4-10 .8 normal Not Available [facility] ([facility]) [address] [place], [address], 10/22/2024 04:09:22 10/22/1910/22/2024 CBC WITH DIFFE RENTI AL/PL ATELE T RBC 3.59 x10e6 /uL 3.77-5 .28 below low normal Not Available [facility] ([facility]) [address] [place], [address], 10/22/2024 04:09:22 10/22/1910/22/2024 CBC WITH DIFFE RENTI AL/PL ATELE T hemoglobin 10.5 g/dL 11.1-1 5.9 below low normal Not Available [facility] ([facility]) [address] [place], [address], 10/22/2024 04:09:22 10/22/19 10/22/2024 CBC WITH DIFFE RENTI AL/PL ATELE T hematocrit 32.7 % 34.0-4 6.6 below low normal Not Available [facility] ([facility]) [address] [facility], [place], [address], 10/22/2024 04:09:22 10/22/19 25 10/22/2024 CBC WITH DIFFE RENTI AL/PL ATELE T MCV 91 fL 79-97 normal Not Available [facility] ([facility]) [address] [place], [address], 10/22/2024 04:09:22 10/22/1910/22/2024 CBC WITH DIFFE RENTI AL/PL ATELE T MCH 29.2 pg 26.6-3 3.0 normal Not Available [facility] ([facility]) [address] [place], [address], 10/22/2024 04:09:22 10/22/1910/22/2024 CBC WITH DIFFE RENTI AL/PL ATELE T MCHC 32.1 g/dL 31.5-3 5.7 normal Not Available [facility] ([facility]) [address] [place], [address], 10/22/2024 04:09:22 10/22/1910/22/2024 CBC WITH DIFFE RENTI AL/PL ATELE T RDW 13.4 % 11.7-1 5.4 Not Available [facility] ([facility]) [address] [place], [address], 10/22/2024 04:09:22 10/22/1910/22/2024 CBC WITH DIFFE RENTI AL/PL ATELE T platelets 502 x10e3 /uL 150-45 0 above high normal Not Available [facility] ([facility]) [address] [place], [address], 10/22/2024 04:09:22 10/22/19 25 10/22/2024 CBC WITH DIFFE RENTI AL/PL ATELE T neutrophils 61 % not estab. normal Not Available [facility] ([facility]) [address] [facility], [place], [address], 10/22/2024 04:09:22 10/22/19 25 10/22/2024 CBC WITH DIFFE RENTI AL/PL ATELE T lymphs 28 % not estab. normal Not Available [facility] ([facility]) [address] [facility], [place], [address], 10/22/2024 04:09:22 10/22/19 25 10/22/2024 CBC WITH DIFFE RENTI AL/PL ATELE T monocytes 5 % not estab. normal Not Available [facility] ([facility]) [address] [facility], [place], [address], 10/22/2024 04:09:22 10/22/19 25 10/22/2024 CBC WITH DIFFE RENTI AL/PL ATELE T eos 4 % not estab. normal Not Available [facility] ([facility]) [address] [facility], [place], [address], 10/22/2024 04:09:22 10/22/19 25 10/22/2024 CBC WITH DIFFE RENTI AL/PL ATELE T basos 2 % not estab. normal Not Available [facility] ([facility]) [address] [facility], [place], [address], 10/22/2024 04:09:22 10/22/19 25 10/22/2024 CBC WITH DIFFE RENTI AL/PL ATELE T immature cells [employer] Not Available [facility] ([facility]) [address] [facility], [place], [address], 10/22/2024 04:09:22 10/22/19 25 10/22/2024 CBC WITH DIFFE RENTI AL/PL ATELE T neutrophils (absolute) 5.2 x10e3 /uL 1.4-7. 0 normal Not Available [facility] ([facility]) [address] [facility], [place], [address], 10/22/2024 04:09:22 10/22/19 25 10/22/2024 CBC WITH DIFFE RENTI AL/PL ATELE T lymphs (absolute) 2.4 x10e3 /uL 0.7-3. 1 normal Not Available [facility] ([facility]) [address] [facility], [place], [address], 10/22/2024 04:09:22 10/22/19 25 10/22/2024 CBC WITH DIFFE RENTI AL/PL ATELE T monocytes(ab solute) 0.4 x10e3 /uL 0.1-0. 9 normal Not Available [facility] ([facility]) [address] [facility], [place], [address], 10/22/2024 04:09:22 10/22/19 25 10/22/2024 CBC WITH DIFFE RENTI AL/PL ATELE T eos (absolute) 0.3 x10e3 /uL 0.0-0. 4 normal Not Available [facility] ([facility]) [address] [facility], [place], [address], 10/22/2024 04:09:22 10/22/19 25 10/22/2024 CBC WITH DIFFE RENTI AL/PL ATELE T baso (absolute) 0.1 x10e3 /uL 0.0-0. 2 normal Not Available [facility] ([facility]) [address] [place], [address], 10/22/2024 04:09:22 10/22/19 25 10/22/2024 CBC WITH DIFFE RENTI AL/PL ATELE T immature granulocytes 0 % not estab. Not Available [facility] ([facility]) [address] [place], [address], 10/22/2024 04:09:22 10/22/19 25 10/22/2024 CBC WITH DIFFE RENTI AL/PL ATELE T immature grans (abs) 0.0 x10e3 /uL 0.0-0. 1 Not Available [facility] ([facility]) [address] [facility], [place], [address], 10/22/2024 04:09:22 10/22/19 25 10/22/2024 CBC WITH DIFFE RENTI AL/PL ATELE T NRBC [employer] Not Available [facility] ([facility]) [address] [facility], [place], [address], 10/22/2024 04:09:22 10/22/1910/22/2024 CBC WITH DIFFE RENTI AL/PL ATELE T hematology comments: [employer] Not Available [facility] ([facility]) [address] [facility], [place], [address], 10/22/2024 04:09:22 10/22/19 25 10/22/2024 BASIC METAB OLIC PANEL (8) glucose 118 mg/dL 70-99 above high normal Not Available [facility] ([facility]) [address] [place], [address], 10/22/2024 04:09:23 10/22/19 25 10/22/2024 BASIC METAB OLIC PANEL (8) BUN 14 mg/dL 6-24 normal Not Available [facility] ([facility]) [address] [place], [address], 10/22/2024 04:09:23 10/22/19 25 10/22/2024 BASIC METAB OLIC PANEL (8) creatinine 0.90 mg/dL 0.57-1 .00 normal Not Available [facility] ([facility]) [address] [place], [address], 10/22/2024 04:09:23 10/22/19 25 10/22/2024 BASIC METAB OLIC PANEL (8) eGFR 76 mL/mi n/1.7 3 >59 normal Not Available [facility] ([facility]) [address] [facility], [place], [address], 10/22/2024 04:09:23 10/22/19 25 10/22/2024 BASIC METAB OLIC PANEL (8) BUN/creatini ne ratio 16 9-23 normal Not Available [facility] ([facility]) [address] [facility] [place], [address], 10/22/2024 04:09:23 10/22/19 25 10/22/2024 BASIC METAB OLIC PANEL (8) sodium 140 mmol/ L 134-14 4 normal Not Available [facility] ([facility]) [address] [facility], [place], [address], 10/22/2024 04:09:23 10/22/19 25 10/22/2024 BASIC METAB OLIC PANEL (8) potassium 4.9 mmol/ L 3.5-5. 2 normal Not Available [facility] ([facility]) [address] [facility], [place], [address], 10/22/2024 04:09:23 10/22/19 25 10/22/2024 BASIC METAB OLIC PANEL (8) chloride 105 mmol/ L 96-106 normal Not Available [facility] ([facility]) [address] [facility] [place], [address], 10/22/2024 04:09:23 10/22/19 25 10/22/2024 BASIC METAB OLIC PANEL (8) carbon dioxide, total 24 mmol/ L 20-29 normal Not Available [facility] ([facility]) [address] [place], [address], 10/22/2024 04:09:23 10/22/19 25 10/22/2024 BASIC METAB OLIC PANEL (8) calcium 9.1 mg/dL 8.7-10 .2 normal Not Available [facility] ([facility]) [address] [place], [address], 10/22/2024 04:09:23 02/04/20 25 02/09/2025 TOXAS SURE FLEX 19, UR summary report FINAL ===== ===== ===== ===== ===== ===== ===== ===== ===== ===== ===== ===== ===== === Amphe tamin es, MS, Ur RFX ToxAs sure Flex 19, Ur ===== ===== ===== ===== ===== ===== ===== ===== ===== ===== ===== ===== ===== === Test Resul t Flag Units Drug Prese nt Metha mphet amine 573 ng/mg creat Amphe tamin e 127 ng/mg creat Sourc es of metha mphet amine inclu de illic it sourc es, as a sched uled presc ripti on medic ation , as a metab olite of some presc ripti on drugs , or use of an l-met hamph etami ne inhal er. Amphe tamin e is an expec katya metab olite of metha mphet amine . Amphe tamin e is also avail able as a sched ule II presc ripti on drug. ===== ===== ===== ===== ===== ===== ===== ===== ===== ===== ===== ===== ===== === Test Resul t Flag Units Ref Range Creat inine 71 mg/dL >=20 ===== ===== ===== ===== ===== ===== ===== ===== ===== ===== ===== ===== ===== === Decla red Medic ation s: Medic ation list was not provi ded. ===== ===== ===== ===== ===== ===== ===== ===== ===== ===== ===== ===== ===== === For clini beth consu ltati on, pleas e call [phone]. ===== ===== ===== ===== ===== ===== ===== ===== ===== ===== ===== ===== ===== === Not Available [facility] ([facility]) [address] [place], [address], 02/09/2025 22:06:34 02/04/20 25 02/09/2025 TOXAS SURE FLEX 19, UR pdf . Not Available [facility] ([facility]) [address] [place], [address], 02/09/2025 22:06:34 02/04/20 25 02/09/2025 TOXAS SURE FLEX 19, UR creatinine 71 mg/dL >=20 REFER ENCE RANGE : Ref Range >=20 Not Available [facility] ([facility]) [address] [place], [address], 02/09/2025 22:06:34 02/04/20 25 02/09/2025 TOXAS SURE FLEX 19, UR amphetamines ia COMMEN T NG/mL cutoff :300 Furth er testi ng indic ated Not Available [facility] ([facility]) [address] [place], [address], 02/09/2025 22:06:34 02/04/20 25 02/09/2025 TOXAS SURE FLEX 19, UR benzodiazepi karlos Negati ve Not Available [facility] ([facility]) [address] [place], [address], 02/09/2025 22:06:34 02/04/20 25 02/09/2025 TOXAS SURE FLEX 19, UR diazepam Not Detect ed NG/mg _crea t Not Available [facility] ([facility]) [address] [facility], [place], [address], 02/09/2025 22:06:34 02/04/20 25 02/09/2025 TOXAS SURE FLEX 19, UR desmethyldia zepam Not Detect ed NG/mg _crea t Not Available [facility] ([facility]) [address] [facility], [place], [address], 02/09/2025 22:06:34 02/04/20 25 02/09/2025 TOXAS SURE FLEX 19, UR oxazepam Not Detect ed NG/mg _crea t Not Available [facility] ([facility]) [address] [facility], [place], [address], 02/09/2025 22:06:34 02/04/20 25 02/09/2025 TOXAS SURE FLEX 19, UR temazepam Not Detect ed NG/mg _crea t Expec katya metab olism of benzo diaze pine class drugs : Paren t Drug Detec katya Metab olite s ----- ----- - ----- ----- ----- ----- Diaze breezy: Desme thyld iazep am, Temaz epam, Oxaze breezy Chlor diaze poxid e: Desme thyld iazep am, Oxaze breezy Clora zepat e: Desme thyld iazep am, Oxaze breezy Halaz epam: Desme thyld iazep am, Oxaze breezy Temaz epam: Oxaze breezy Oxaze breezy: None Not Available [facility] ([facility]) [address] [facility], [place], [address], 02/09/2025 22:06:34 02/04/20 25 02/09/2025 TOXAS SURE FLEX 19, UR alprazolam Not Detect ed NG/mg _crea t Not Available [facility] ([facility]) [address] [place], [address], 02/09/2025 22:06:34 02/04/20 25 02/09/2025 TOXAS SURE FLEX 19, UR alpha-hydrox yalprazolam Not Detect ed NG/mg _crea t Not Available [facility] ([facility]) [address] [place], [address], 02/09/2025 22:06:34 02/04/20 25 02/09/2025 TOXAS SURE FLEX 19, UR desalkylflur azepam Not Detect ed NG/mg _crea t Not Available [facility] ([facility]) [address] [place], [address], 02/09/2025 22:06:34 02/04/20 25 02/09/2025 TOXAS SURE FLEX 19, UR lorazepam Not Detect ed NG/mg _crea t Not Available [facility] ([facility]) [address] [place], [address], 02/09/2025 22:06:34 02/04/20 25 02/09/2025 TOXAS SURE FLEX 19, UR alpha-hydrox ytriazolam Not Detect ed NG/mg _crea t Not Available [facility] ([facility]) [address] [place], [address], 02/09/2025 22:06:34 02/04/20 25 02/09/2025 TOXAS SURE FLEX 19, UR clonazepam Not Detect ed NG/mg _crea t Not Available [facility] ([facility]) [address] [place], [address], 02/09/2025 22:06:34 02/04/20 25 02/09/2025 TOXAS SURE FLEX 19, UR 7-aminoclona zepam Not Detect ed NG/mg _crea t Not Available [facility] ([facility]) [address] [place], [address], 02/09/2025 22:06:34 02/04/20 25 02/09/2025 TOXAS SURE FLEX 19, UR midazolam Not Detect ed NG/mg _crea t Not Available [facility] ([facility]) [address] [place], [address], 02/09/2025 22:06:34 02/04/20 25 02/09/2025 TOXAS SURE FLEX 19, UR alpha-hydrox ymidazolam Not Detect ed NG/mg _crea t Not Available [facility] ([facility]) [address] [place], [address], 02/09/2025 22:06:34 02/04/20 25 02/09/2025 TOXAS SURE FLEX 19, UR flunitrazepa m Not Detect ed NG/mg _crea t Not Available [facility] ([facility]) [address] [place], [address], 02/09/2025 22:06:34 02/04/20 25 02/09/2025 TOXAS SURE FLEX 19, UR desmethylflu nitrazepam Not Detect ed NG/mg _crea t Not Available [facility] ([facility]) [address] [place], [address], 02/09/2025 22:06:34 02/04/20 25 02/09/2025 TOXAS SURE FLEX 19, UR cocaine metabolite ia Negati ve NG/mL cutoff :150 Not Available [facility] ([facility]) [address] [place], [address], 02/09/2025 22:06:34 02/04/20 25 02/09/2025 TOXAS SURE FLEX 19, UR ethanol biomarkers ia Negati ve NG/mL cutoff :500 Not Available [facility] ([facility]) [address] [place], [address], 02/09/2025 22:06:34 07/24/20 25 02/09/2025 TOXAS SURE FLEX 19, UR cannabinoids ia Negati ve NG/mL cutoff :20 Not Available [facility] ([facility]) [address] [place], [address], 02/09/2025 22:06:34 02/04/20 25 02/09/2025 TOXAS SURE FLEX 19, UR 6-acetylmorp patrick ia Negati ve NG/mL cutoff :10 Not Available [facility] ([facility]) [address] [place], [address], 02/09/2025 22:06:34 02/04/20 25 02/09/2025 TOXAS SURE FLEX 19, UR opiate class ia Negati ve NG/mL cutoff :100 Not Available [facility] ([facility]) [address] [place], [address], 02/09/2025 22:06:34 02/04/20 25 02/09/2025 TOXAS SURE FLEX 19, UR oxycodone class ia Negati ve NG/mL cutoff :100 Not Available [facility] ([facility]) [address] [place], [address], 02/09/2025 22:06:34 02/04/20 25 02/09/2025 TOXAS SURE FLEX 19, UR methadone ia Negati ve NG/mL cutoff :100 Not Available [facility] ([facility]) [address] [place], [address], 02/09/2025 22:06:34 02/04/20 25 02/09/2025 TOXAS SURE FLEX 19, UR methadone mtb ia Negati ve NG/mL cutoff :100 Not Available [facility] ([facility]) [address] [place], [address], 02/09/2025 22:06:34 02/04/20 25 02/09/2025 TOXAS SURE FLEX 19, UR buprenorphin e ia Negati ve NG/mL cutoff :5.0 Not Available [facility] ([facility]) [address] [place], [address], 02/09/2025 22:06:34 02/04/20 25 02/09/2025 TOXAS SURE FLEX 19, UR fentanyl ia Negati ve NG/mL cutoff :2.0 Not Available [facility] ([facility]) [address] [place], [address], 02/09/2025 22:06:34 02/04/20 25 02/09/2025 TOXAS SURE FLEX 19, UR tapentadol ia Negati ve NG/mL cutoff :200 Not Available [facility] ([facility]) [address] [place], [address], 02/09/2025 22:06:34 02/04/20 25 02/09/2025 TOXAS SURE FLEX 19, UR propoxyphene ia Negati ve NG/mL cutoff :300 Not Available [facility] ([facility]) [address] [place], [address], 02/09/2025 22:06:34 02/04/20 25 02/09/2025 TOXAS SURE FLEX 19, UR tramadol ia Negati ve NG/mL cutoff :200 Not Available [facility] ([facility]) [address] [place], [address], 02/09/2025 22:06:34 02/04/20 25 02/09/2025 TOXAS SURE FLEX 19, UR methylphenid ate ia Negati ve NG/mL cutoff :100 Not Available [facility] ([facility]) [address] [place], [address], 02/09/2025 22:06:34 02/04/20 25 02/09/2025 TOXAS SURE FLEX 19, UR barbiturates ia Negati ve NG/mL cutoff :200 Not Available [facility] ([facility]) [address] [place], [address], 02/09/2025 22:06:34 02/04/20 25 02/09/2025 TOXAS SURE FLEX 19, UR phencyclidin e ia Negati ve NG/mL cutoff :25 Not Available [facility] ([facility]) [address] [place], [address], 02/09/2025 22:06:34 02/04/20 25 02/09/2025 TOXAS SURE FLEX 19, UR gabapentin ia Negati ve ug/mL cutoff :1.0 Not Available [facility] ([facility]) [address] [place], [address], 02/09/2025 22:06:34 02/04/20 25 02/09/2025 TOXAS SURE FLEX 19, UR anticonvulsa nts Negati ve Not Available [facility] ([facility]) [address] [place], [address], 02/09/2025 22:06:34 02/04/20 25 02/09/2025 TOXAS SURE FLEX 19, UR pregabalin Not Detect ed Not Available [facility] ([facility]) [address] [place], [address], 02/09/2025 22:06:34 02/04/20 25 02/09/2025 TOXAS SURE FLEX 19, UR carisoprodol ia Negati ve NG/mL cutoff :100 Not Available [facility] ([facility]) [address] [place], [address], 02/09/2025 22:06:34 02/04/20 25 02/04/2025 CBC WITH DIFFE RENTI AL/PL ATELE T WBC 6.9 x10e3 /uL 3.4-10 .8 normal Not Available [facility] ([facility]) [address] [place], [address], 02/09/2025 22:06:35 02/04/20 02/04/2025 CBC WITH DIFFE RENTI AL/PL ATELE T RBC 4.05 x10e6 /uL 3.77-5 .28 normal Not Available [facility] ([facility]) [address] [place], [address], 02/09/2025 22:06:35 02/04/20 25 02/04/2025 CBC WITH DIFFE RENTI AL/PL ATELE T hemoglobin 11.3 g/dL 11.1-1 5.9 normal Not Available [facility] ([facility]) [address] [place], [address], 02/09/2025 22:06:35 02/04/2002/04/2025 CBC WITH DIFFE RENTI AL/PL ATELE T hematocrit 38.0 % 34.0-4 6.6 normal Not Available [facility] ([facility]) [address] [place], [address], 02/09/2025 22:06:35 02/04/20 25 02/04/2025 CBC WITH DIFFE RENTI AL/PL ATELE T MCV 94 fL 79-97 normal Not Available [facility] ([facility]) [address] [place], [address], 02/09/2025 22:06:35 02/04/2002/04/2025 CBC WITH DIFFE RENTI AL/PL ATELE T MCH 27.9 pg 26.6-3 3.0 normal Not Available [facility] ([facility]) [address] [place], [address], 02/09/2025 22:06:35 02/04/20 25 02/04/2025 CBC WITH DIFFE RENTI AL/PL ATELE T MCHC 29.7 g/dL 31.5-3 5.7 below low normal Not Available [facility] ([facility]) [address] [place], [address], 02/09/2025 22:06:35 02/04/2004 0202/04/2025 CBC WITH DIFFE RENTI AL/PL ATELE T RDW 16.7 % 11.7-1 5.4 above high normal Not Available [facility] ([facility]) [address] [facility], [place], [address], 02/09/2025 22:06:35 02/04/20 25 02/04/2025 CBC WITH DIFFE RENTI AL/PL ATELE T platelets 633 x10e3 /uL 150-45 0 above high normal Not Available [facility] ([facility]) [address] [facility], [place], [address], 02/09/2025 22:06:35 02/04/20 25 02/04/2025 CBC WITH DIFFE RENTI AL/PL ATELE T neutrophils 61 % not estab. normal Not Available [facility] ([facility]) [address] [facility], [place], [address], 02/09/2025 22:06:35 02/04/20 25 02/04/2025 CBC WITH DIFFE RENTI AL/PL ATELE T lymphs 29 % not estab. normal Not Available [facility] ([facility]) [address] [facility], [place], [address], 02/09/2025 22:06:35 02/04/20 25 02/04/2025 CBC WITH DIFFE RENTI AL/PL ATELE T monocytes 5 % not estab. normal Not Available [facility] ([facility]) [address] [facility], [place], [address], 02/09/2025 22:06:35 02/04/20 25 02/04/2025 CBC WITH DIFFE RENTI AL/PL ATELE T eos 3 % not estab. normal Not Available [facility] ([facility]) [address] [facility], [place], [address], 02/09/2025 22:06:35 02/04/20 25 02/04/2025 CBC WITH DIFFE RENTI AL/PL ATELE T basos 2 % not estab. normal Not Available [facility] ([facility]) [address] [place], [address], 02/09/2025 22:06:35 02/04/20 25 02/04/2025 CBC WITH DIFFE RENTI AL/PL ATELE T immature cells [employer] Not Available [facility] ([facility]) [address] [facility], [place], [address], 02/09/2025 22:06:35 02/04/20 25 02/04/2025 CBC WITH DIFFE RENTI AL/PL ATELE T neutrophils (absolute) 4.2 x10e3 /uL 1.4-7. 0 normal Not Available [facility] ([facility]) [address] [facility], [place], [address], 02/09/2025 22:06:35 02/04/20 25 02/04/2025 CBC WITH DIFFE RENTI AL/PL ATELE T lymphs (absolute) 2.0 x10e3 /uL 0.7-3. 1 normal Not Available [facility] ([facility]) [address] [place], [address], 02/09/2025 22:06:35 02/04/20 25 02/04/2025 CBC WITH DIFFE RENTI AL/PL ATELE T monocytes(ab solute) 0.4 x10e3 /uL 0.1-0. 9 normal Not Available [facility] ([facility]) [address] [place], [address], 02/09/2025 22:06:35 02/04/20 25 02/04/2025 CBC WITH DIFFE RENTI AL/PL ATELE T eos (absolute) 0.2 x10e3 /uL 0.0-0. 4 normal Not Available [facility] ([facility]) [address] [place], [address], 02/09/2025 22:06:35 02/04/20 25 02/04/2025 CBC WITH DIFFE RENTI AL/PL ATELE T baso (absolute) 0.1 x10e3 /uL 0.0-0. 2 normal Not Available [facility] ([facility]) [address] [place], [address], 02/09/2025 22:06:35 02/04/20 25 02/04/2025 CBC WITH DIFFE RENTI AL/PL ATELE T immature granulocytes 0 % not estab. Not Available [facility] ([facility]) [address] [facility], [place], [address], 02/09/2025 22:06:35 02/04/20 25 02/04/2025 CBC WITH DIFFE RENTI AL/PL ATELE T immature grans (abs) 0.0 x10e3 /uL 0.0-0. 1 Not Available [facility] ([facility]) [address] [place], [address], 02/09/2025 22:06:35 02/04/20 25 02/04/2025 CBC WITH DIFFE RENTI AL/PL ATELE T NRBC [employer] Not Available [facility] ([facility]) [address] [place], [address], 02/09/2025 22:06:35 02/04/20 25 02/04/2025 CBC WITH DIFFE RENTI AL/PL ATELE T hematology comments: [employer] Not Available [facility] ([facility]) [address] [place], [address], 02/09/2025 22:06:35 02/04/20 25 02/04/2025 BASIC METAB OLIC PANEL (8) glucose 85 mg/dL 70-99 normal Not Available [facility] ([facility]) [address] [place], [address], 02/09/2025 22:06:35 02/04/20 25 02/04/2025 BASIC METAB OLIC PANEL (8) BUN 11 mg/dL 6-24 normal Not Available [facility] ([facility]) [address] [facility] [place], [address], 02/09/2025 22:06:35 02/04/20 25 02/04/2025 BASIC METAB OLIC PANEL (8) creatinine 0.65 mg/dL 0.57-1 .00 normal Not Available [facility] ([facility]) [address] [facility] [place], [address], 02/09/2025 22:06:35 02/04/20 25 02/04/2025 BASIC METAB OLIC PANEL (8) eGFR 105 mL/mi n/1.7 3 >59 normal Not Available [facility] ([facility]) [address] [facility] [place], [address], 02/09/2025 22:06:35 02/04/20 25 02/04/2025 BASIC METAB OLIC PANEL (8) BUN/creatini ne ratio 17 9-23 normal Not Available [facility] ([facility]) [address] [place], [address], 02/09/2025 22:06:35 02/04/20 25 02/04/2025 BASIC METAB OLIC PANEL (8) sodium 139 mmol/ L 134-14 4 normal Not Available [facility] ([facility]) [address] [place], [address], 02/09/2025 22:06:35 02/04/20 25 02/04/2025 BASIC METAB OLIC PANEL (8) potassium 5.7 mmol/ L 3.5-5. 2 above high normal Not Available [facility] ([facility]) [address] [place], [address], 02/09/2025 22:06:35 02/04/20 25 02/04/2025 BASIC METAB OLIC PANEL (8) chloride 104 mmol/ L 96-106 normal Not Available [facility] ([facility]) [address] [place], [address], 02/09/2025 22:06:35 02/04/20 25 02/04/2025 BASIC METAB OLIC PANEL (8) carbon dioxide, total 21 mmol/ L 20-29 normal Not Available [facility] ([facility]) [address] [place], [address], 02/09/2025 22:06:35 02/04/20 25 02/04/2025 BASIC METAB OLIC PANEL (8) calcium 9.2 mg/dL 8.7-10 .2 normal Not Available [facility] ([facility]) [address] [place], [address], 02/09/2025 22:06:35 02/04/20 25 02/09/2025 AMPHE TAMIN ES, MS, UR RFX amphetamines +POSIT DIEGO+ Not Available [facility] ([facility]) [address] [place], [address], 02/09/2025 22:06:36 02/04/20 25 02/09/2025 AMPHE TAMIN ES, MS, UR RFX methamphetam ine 573 NG/mg _crea t Not Available [facility] ([facility]) [address] [place], [address], 02/09/2025 22:06:36 02/04/20 25 02/09/2025 AMPHE TAMIN ES, MS, UR RFX amphetamine 127 NG/mg _crea t Not Available [facility] ([facility]) [address] [place], [address], 02/09/2025 22:06:36 02/04/20 25 02/09/2025 AMPHE TAMIN ES, MS, UR RFX MDMA (ecstasy) Not Detect ed NG/mg _crea t Not Available [facility] ([facility]) [address] [place], [address], 02/09/2025 22:06:36 02/04/20 25 02/09/2025 AMPHE TAMIN ES, MS, UR RFX mda (ecstasy metabolite) Not Detect ed NG/mg _crea t Not Available [facility] ([facility]) [address] [facility], [place], [address], 02/09/2025 22:06:36 02/04/20 25 02/04/2025 TSH TSH 1.210 uIU/m L 0.450- 4.500 normal Not Available [facility] ([facility]) [address] [facility], [place], [address], 02/09/2025 22:06:36 02/04/20 25 02/03/2025 micro album in/cr eatin ine, mass ratio , urine Microalbumin 10 mg/L Not Available [facility] [address] [place], [address], 02/03/2025 13:27:01 02/04/20 25 02/03/2025 micro album in/cr eatin ine, mass ratio , urine Creatinine 50 mg/dL Not Available [facility] [address] [place], [address], 02/03/2025 13:27:01 02/04/20 25 02/03/2025 micro album in/cr eatin ine, mass ratio , urine Ratio <30 mg/g Not Available [facility] [address] [place] [address], [address], 02/03/2025 13:27:01 02/04/20 25 02/03/2025 HbA1c (hemo globi n A1c), blood HbA1c 5.9 % Not Available [facility] [address] [place], [address], 02/03/2025 13:26:56 02/15/20 25 02/15/2025 CBC WITH DIFFE RENTI AL/PL ATELE T WBC 10.9 x10e3 /uL 3.4-10 .8 above high normal Not Available [facility] ([facility]) [address] [place], [address], 02/15/2025 05:06:50 02/15/20 25 02/15/2025 CBC WITH DIFFE RENTI AL/PL ATELE T RBC 3.73 x10e6 /uL 3.77-5 .28 below low normal Not Available [facility] ([facility]) [address] [place], [address], 02/15/2025 05:06:50 02/15/20 25 02/15/2025 CBC WITH DIFFE RENTI AL/PL ATELE T hemoglobin 10.5 g/dL 11.1-1 5.9 below low normal Not Available [facility] ([facility]) [address] [place], [address], 02/15/2025 05:06:50 02/15/20 25 02/15/2025 CBC WITH DIFFE RENTI AL/PL ATELE T hematocrit 33.8 % 34.0-4 6.6 below low normal Not Available [facility] ([facility]) [address] [place], [address], 02/15/2025 05:06:50 02/15/20 25 02/15/2025 CBC WITH DIFFE RENTI AL/PL ATELE T MCV 91 fL 79-97 normal Not Available [facility] ([facility]) [address] [place], [address], 02/15/2025 05:06:50 02/15/20 25 02/15/2025 CBC WITH DIFFE RENTI AL/PL ATELE T MCH 28.2 pg 26.6-3 3.0 normal Not Available [facility] ([facility]) [address] [place], [address], 02/15/2025 05:06:50 02/15/20 25 02/15/2025 CBC WITH DIFFE RENTI AL/PL ATELE T MCHC 31.1 g/dL 31.5-3 5.7 below low normal Not Available [facility] ([facility]) [address] [facility], [place], [address], 02/15/2025 05:06:50 02/15/20 25 02/15/2025 CBC WITH DIFFE RENTI AL/PL ATELE T RDW 17.0 % 11.7-1 5.4 above high normal Not Available [facility] ([facility]) [address] [facility], [place], [address], 02/15/2025 05:06:50 02/15/20 25 02/15/2025 CBC WITH DIFFE RENTI AL/PL ATELE T platelets 666 x10e3 /uL 150-45 0 above high normal Not Available [facility] ([facility]) [address] [facility], [place], [address], 02/15/2025 05:06:50 02/15/20 25 02/15/2025 CBC WITH DIFFE RENTI AL/PL ATELE T neutrophils 52 % not estab. normal Not Available [facility] ([facility]) [address] [facility], [place], [address], 02/15/2025 05:06:50 02/15/20 25 02/15/2025 CBC WITH DIFFE RENTI AL/PL ATELE T lymphs 36 % not estab. normal Not Available [facility] ([facility]) [address] [facility], [place], [address], 02/15/2025 05:06:50 02/15/20 25 02/15/2025 CBC WITH DIFFE RENTI AL/PL ATELE T monocytes 6 % not estab. normal Not Available [facility] ([facility]) [address] [facility], [place], [address], 02/15/2025 05:06:50 02/15/20 25 02/15/2025 CBC WITH DIFFE RENTI AL/PL ATELE T eos 5 % not estab. normal Not Available [facility] ([facility]) [address] [place], [address], 02/15/2025 05:06:50 02/15/20 25 02/15/2025 CBC WITH DIFFE RENTI AL/PL ATELE T basos 1 % not estab. normal Not Available [facility] ([facility]) [address] [facility], [place], [address], 02/15/2025 05:06:50 02/15/20 25 02/15/2025 CBC WITH DIFFE RENTI AL/PL ATELE T immature cells [employer] Not Available [facility] ([facility]) [address] [place], [address], 02/15/2025 05:06:50 02/15/20 25 02/15/2025 CBC WITH DIFFE RENTI AL/PL ATELE T neutrophils (absolute) 5.7 x10e3 /uL 1.4-7. 0 normal Not Available [facility] ([facility]) [address] [place], [address], 02/15/2025 05:06:50 02/15/20 25 02/15/2025 CBC WITH DIFFE RENTI AL/PL ATELE T lymphs (absolute) 3.9 x10e3 /uL 0.7-3. 1 above high normal Not Available [facility] ([facility]) [address] [place], [address], 02/15/2025 05:06:50 02/15/20 25 02/15/2025 CBC WITH DIFFE RENTI AL/PL ATELE T monocytes(ab solute) 0.6 x10e3 /uL 0.1-0. 9 normal Not Available [facility] ([facility]) [address] [place], [address], 02/15/2025 05:06:50 02/15/20 25 02/15/2025 CBC WITH DIFFE RENTI AL/PL ATELE T eos (absolute) 0.5 x10e3 /uL 0.0-0. 4 above high normal Not Available [facility] ([facility]) [address] [facility], [place], [address], 02/15/2025 05:06:50 02/15/20 25 02/15/2025 CBC WITH DIFFE RENTI AL/PL ATELE T baso (absolute) 0.1 x10e3 /uL 0.0-0. 2 normal Not Available [facility] ([facility]) [address] [facility], [place], [address], 02/15/2025 05:06:50 02/15/20 25 02/15/2025 CBC WITH DIFFE RENTI AL/PL ATELE T immature granulocytes 0 % not estab. Not Available [facility] ([facility]) [address] [facility], [place], [address], 02/15/2025 05:06:50 02/15/20 25 02/15/2025 CBC WITH DIFFE RENTI AL/PL ATELE T immature grans (abs) 0.0 x10e3 /uL 0.0-0. 1 Not Available [facility] ([facility]) [address] [facility], [place], [address], 02/15/2025 05:06:50 02/15/2002/15/2025 CBC WITH DIFFE RENTI AL/PL ATELE T NRBC [employer] Not Available [facility] ([facility]) [address] [facility], [place], [address], 02/15/2025 05:06:50 02/15/20 25 02/15/2025 CBC WITH DIFFE RENTI AL/PL ATELE T hematology comments: [employer] Not Available [facility] ([facility]) [address] [facility], [place], [address], 02/15/2025 05:06:50 02/15/20 25 02/15/2025 BASIC METAB OLIC PANEL (8) glucose 74 mg/dL 70-99 normal Not Available [facility] ([facility]) [address] [place], [address], 02/15/2025 05:06:51 02/15/20 25 02/15/2025 BASIC METAB OLIC PANEL (8) BUN 21 mg/dL 6-24 normal Not Available [facility] ([facility]) [address] [place], [address], 02/15/2025 05:06:51 02/15/20 25 02/15/2025 BASIC METAB OLIC PANEL (8) creatinine 0.76 mg/dL 0.57-1 .00 normal Not Available [facility] ([facility]) [address] [facility] [place], [address], 02/15/2025 05:06:51 02/15/20 25 02/15/2025 BASIC METAB OLIC PANEL (8) eGFR 94 mL/mi n/1.7 3 >59 normal Not Available [facility] ([facility]) [address] [place], [address], 02/15/2025 05:06:51 02/15/20 25 02/15/2025 BASIC METAB OLIC PANEL (8) BUN/creatini ne ratio 28 9-23 above high normal Not Available [facility] ([facility]) [address] [place], [address], 02/15/2025 05:06:51 02/15/20 25 02/15/2025 BASIC METAB OLIC PANEL (8) sodium 139 mmol/ L 134-14 4 normal Not Available [facility] ([facility]) [address] [place], [address], 02/15/2025 05:06:51 02/15/20 25 02/15/2025 BASIC METAB OLIC PANEL (8) potassium 5.7 mmol/ L 3.5-5. 2 above high normal Not Available [facility] ([facility]) [address] [facility], [place], [address], 02/15/2025 05:06:51 02/15/20 25 02/15/2025 BASIC METAB OLIC PANEL (8) chloride 102 mmol/ L 96-106 normal Not Available [facility] ([facility]) [address] [place], [address], 02/15/2025 05:06:51 02/15/20 25 02/15/2025 BASIC METAB OLIC PANEL (8) carbon dioxide, total 24 mmol/ L 20-29 normal Not Available [facility] ([facility]) [address] [place], [address], 02/15/2025 05:06:51 02/15/20 25 02/15/2025 BASIC METAB OLIC PANEL (8) calcium 9.2 mg/dL 8.7-10 .2 normal Not Available [facility] ([facility]) [address] [facility], [place], [address], 02/15/2025 05:06:51 02/15/2002/14/2025 PLEAS E NOTE please note Commen t The date and/o r time of colle ction was not indic ated on the requi sitio n as requi red by state and [place] law. The date of recei pt of the speci men was used as the colle ction date if not suppl ied. Not Available [facility] ([facility]) [address] [facility], [place], [address], 02/15/2025 05:06:52 Result Notes None recorded. Problems Name Problem SNOMED Code Status Onset Date Resolution Date Notes Provider Name and Address Organization Details Recorded Time Depressiv e disorder 11856470 Active 2024 SHRUTHI Emerson [address] [place] [address], [address] 8, [facility] [employer] 09:10:27 Osteoporo sis 98053429 Active 2024 SHRUTHI Emerson [address] [place] [address], 30[address] 8, [employer] 09:10:44 Chronic pain 17474540 Active 2024 SHRUTHI Emerson [address] [place] [address], 195[address] 8, [place] [employer] 09:10:29 Hyperlipi demia 53931097 Active 2024 SHRUTHI Emerson [address] [place] [address], 30[address] 8, [employer] 5 09:10:40 Allergic rhinitis 38226962 Active 2024 SHRUTHI Emerson [address] [place] [address], 744[address] 8, [employer] 09:10:34 Hypothyro idism 01740951 Active 2024 SHRUTHI Emerson [address] [place] [address], 299[address] 8, [employer] 09:10:42 Vertigo 609935258 Active 2024 SHRUTHI Emerson [address] [place] [address], 58438-685 8, [employer] 5 11:01:13 Type 2 diabetes mellitus without complicat ion 448635110 Active 2024 SHRUTHI Emerson [address] [place] [address], 524[address] 8, [employer] 09:10:46 Nausea and vomiting 79058709 Active 2024 SHRUTHI Emerson [address] [place] [address], 62774[address]499 8, [employer] 5 11:01:31 Folic acid deficienc y 689794132 Active 2024 SHRUTHI Emerson [address] [place] [address], 80[address] 8, [employer] 09:10:37 Hypokalem ia 24869348 Active 2024 SHRUTHI Emerson [address] [place] [address], 25674[address]144 8, [employer] 11:01:49 Essential hypertens ion 45956945 Active 2024 SHRUTHI Emerson [address] [place] [address], 02795-095 8, [employer] 09:10:25 Gastroeso phageal reflux disease 857790162 Active 2024 SHRUTHI Emerson [address] [place] [address], 69879-060 8, [employer] 09:10:39 Vitamin D deficienc y 69387156 Active 2024 SHRUTHI Emerson [address] [place] [address], 47336[address]676 8, [employer] 09:10:51 Bilateral lower limb edema 540800705 Active 2024 SHRUTHI Emerson [address] [place] [address], 61372[address]556 8, [employer] 09:10:32 Chronic obstructi ve pulmonary disease 25953716 Active 2024 SHRUTHI Emerson [address] [place] [address], 32503[address]719 8, [employer] 09:10:30 Acute sinusitis 02474918 Completed 202403/25/2025 SHRUTHI Emerson [address] [place] [address], 96260-618 8, [employer] 13:06:34 Low back pain 763110538 Active 2024 SHRUTHI Emerson [address] [place] [address], 10873-373 8, [employer] 14:06:10 Dysfuncti on of bilateral eustachia n tubes 540305818958 9100 Active 2024 SHRUTHI Emerson [address] [place] [address], 56638-564 8, [place] [employer] 5 10:41:06 Cataract 743408078 Active 2024 SHRUTHI Emerson [address] [place] [address], 41458-775 8, [employer] 5 14:06:21 Candidias is of mouth 12879897 Active 2024 SHRUTHI Emerson [address] [place] [address], 73565-191 8, [employer] 5 15:38:21 Chronic pain of right upper limb 738312246262 49689 Active 2024 SHRUTHI Emerson [address] [place] [address], 44250-511 8, [employer] 5 13:46:27 Migraine with aura 7039567 Active 2024 SHRUTHI Emerson [address] [place] [address], 74138-444 8, [employer] 12:49:52 Insomnia 689403896 Active 2024 SHRUTHI Emerson [address] [place] [address], 36827-675 8, [employer] 09:53:20 Problem Notes None recorded. Procedures Surgical History Date Name Laterality Status Provider Name and Address Organization Details Recorded Time 07/14/19 16 Most Recent Mammogram completed [employer] 09/30/2024 10:29:11 Back Surgery completed [employer] 09/30/2024 10:29:12 Breast Biopsy completed [employer] 09/30/2024 10:29:12 Colposcopy completed [employer] 09/30/2024 10:29:12 Tubal Ligation completed [employer] 09/30/2024 10:29:12 Other completed [employer] 09/30/2024 10:29:12 Gallbladder Surgery completed [employer] 09/30/2024 10:29:12 Partial Hysterectomy completed [employer] 09/30/2024 10:29:12 Imaging Results None recorded. Procedure Notes None recorded. Medical Equipment None Reported. Allergies Allergen ID Allergen Name Allergen Category Reaction Reaction Severity Criticality Documentation Date Start Date Code Code System Note Provider Name and Address Organization Details Recorded Time 59960 baclofen medicatio n Not available Not available Not available 09/30/2024 1292 [employer] [employer] 10:29:27 13344 tizanidin e medicatio n Not available Not available Not available 09/30/2024 54253 [employer] 10:29:44 Medications Name Sig Start Date Stop Date Status Note LastModified by Organization Details LastModified Time fluoxetine 40 mg capsule TAKE 1 CAPSULE BY MOUTH ONCE DAILY FOR DEPRESSIO N active Not Available Not Available No t Available cyclobenzap rine 10 mg tablet TAKE 1 TABLET BY MOUTH 3 TIMES A DAY active Not Available Not Available No t Available amoxicillin 500 mg capsule TAKE 1 CAPSULE BY MOUTH THREE TIMES DAILY 09/13 completed Not Available Not Available Not Available methocarbam ol 500 mg tablet TAKE 1 TABLET BY MOUTH THREE TIMES DAILY 02/03 completed Not Available Not Available Not Available nystatin 100,000 unit/mL oral suspension TAKE 10 ML BY MOUTH 4 TIMES DAILY FOR 10 DAYS active Not Available Not Available No t Available potassium chloride ER 10 mEq capsule,ext ended release TAKE 1 CAPSULE BY MOUTH TWICE A DAY 09/30 completed Not Available Not Available Not Available gabapentin 600 mg tablet TAKE ONE TABLET BY MOUTH THREE TIMES A DAY NO FURTHER REFILLS UNTIL SEEN FOR APPT 09/30 completed Not Available Not Available Not Available atorvastati n 20 mg tablet Take 1 tablet every day by oral route at bedtime for 90 days, for cholester ol. 2024 active Not Available Not Available Not Avai lable famotidine 10 mg tablet Take 1 tablet every day by oral route. 09/30 completed Not Available Not Available Not Available azithromyci n 250 mg tablet TAKE 2 TABLETS BY MOUTH ON DAY 1, AND THEN TAKE 1 TABLET BY MOUTH ONCE A DAY ON DAY 2 THROUGH DAY 5 11/02 completed Not Available Not Available Not Available ibuprofen 800 mg tablet TAKE 1 TABLET BY MOUTH THREE TIMES DAILY NEEDED active Not Available Not Available No t Available sumatriptan 100 mg tablet TAKE 1 TABLET BY MOUTH NEEDED FOR MIGRAINE. MAY REPEAT IN 2 HOURS. MAX 2 TABLETS PER DAY 2024 active Not Available Not Available Not Avai lable hydrocodone 5 mg-acetamin ophen 325 mg tablet TAKE 1 TABLET BY MOUTH EVERY 6 HOURS NEEDED FOR PAIN active Not Available Not Available No t Available promethazin e 25 mg rectal suppository Insert 0.5 supposito sandy every 4-6 hours by rectal route for 30 days. 2024 active Not Available Not Available Not Avai lable promethazin e 12.5 mg tablet TAKE 1 TABLET BY MOUTH TWICE DAILY NEEDED FOR 5 DAYS active Not Available Not Available No t Available Medrol (Joshua) 4 mg tablets in a dose pack Take 1 dose pk by oral route as directed for 6 days. 2024 active Not Available Not Available Not Avai lable prednisone 20 mg tablet Take 1 tablet by mouth twice daily for 5 days active Not Available Not Available No t Available alendronate 70 mg tablet TAKE 1 TABLET BY MOUTH ONCE A WEEK FOR OSTEOPORO SIS active Not Available Not Available No t Available gabapentin 400 mg capsule TAKE 1 CAPSULE BY MOUTH 3 TIMES A DAY active Not Available Not Available No t Available Accu-Chek Softclix Lancets USE 1 LANCET THREE TIMES DAILY FOR TESTING active Not Available Not Available No t Available potassium chloride ER 10 mEq tablet,exte nded release TAKE 1 TABLET BY MOUTH TWICE DAILY 02/15 completed Not Available Not Available Not Available omeprazole 40 mg capsule,del ayed release TAKE 1 CAPSULE BY MOUTH ONCE DAILY active Not Available Not Available No t Available levothyroxi ne 100 mcg tablet TAKE 1 TABLET BY MOUTH ONCE DAILY FOR 90 DAYS 11/02 completed Not Available Not Available Not Available famotidine 20 mg tablet TAKE 1 TABLET BY MOUTH ONCE DAILY active Not Available Not Available No t Available amitriptyli ne 25 mg tablet Take 1 tablet twice a day by oral route for 30 days. 2024 active Not Available Not Available Not Avai lable calcium 500 mg (as calcium carbonate 1,250 mg) tablet Take 1 tablet every day by oral route for 90 days, for bones. 2024 active Not Available Not Available Not Avai lable promethazin e 12.5 mg rectal suppository INSERT 1 SUPPOSITO RY RECTALLY EVERY 4 TO 6 HOURS FOR 30 DAYS active Not Available Not Available No t Available amitriptyli ne 10 mg tablet TAKE 1 TABLET BY MOUTH ONCE DAILY AT BEDTIME 2024 active Not Available Not Available Not Avai lable meclizine 25 mg tablet TAKE 1 TABLET BY MOUTH THREE TIMES A DAY NEEDED FOR VERTIGO 09/30 completed Not Available Not Available Not Available levothyroxi ne 150 mcg tablet TAKE 1 TABLET BY MOUTH ONCE DAILY FOR THYROID active Not Available Not Available No t Available ibuprofen 400 mg tablet Take 1 tablet by mouth twice daily 03/25 completed Not Available Not Available Not Available gabapentin 300 mg capsule TAKE 1 CAPSULE BY MOUTH 3 TIMES A DAY 03/25 completed Not Available Not Available Not Available folic acid 1 mg tablet TAKE 1 TABLET BY MOUTH EVERY DAY 09/30 completed Not Available Not Available Not Available alcohol swabs Apply 1 pad 3 times a day by topical route as directed for 30 days. 2024 active Not Available Not Available Not Avai lable furosemide 20 mg tablet TAKE 1 TABLET BY MOUTH ONCE DAILY NEEDED FOR EDEMA active Not Available Not Available No t Available gabapentin 100 mg capsule TAKE 1 CAPSULE BY MOUTH THREE TIMES DAILY 02/03 completed Not Available Not Available Not Available ergocalcife rol (vitamin D2) 1,250 mcg (50,000 unit) capsule TAKE 1 CAPSULE BY MOUTH ONCE A WEEK active Not Available Not Available No t Available Novolog U-100 Insulin aspart 100 unit/mL subcutaneou s solution INJECT 5-6 UNITS UNDER THE SKIN WITHIN 15 MINUTES BEFORE/UP TO DINNER 09/30 completed Not Available Not Available Not Available albuterol sulfate HFA 90 mcg/actuati on aerosol inhaler INHALE 2 PUFFS BY MOUTH EVERY 4 HOURS NEEDED active Not Available Not Available No t Available fluticasone propionate 50 mcg/actuati on nasal spray,suspe nsion USE 1 SPRAY(S) IN EACH NOSTRIL ONCE DAILY active Not Available Not Available No t Available Xanax 1 mg tablet Take 1 tablet twice a day by oral route. 09/30 completed Not Available Not Available Not Available loratadine 10 mg tablet TAKE 1 TABLET BY MOUTH ONCE DAILY FOR ALLERGIES active Not Available Not Available No t Available metoclopram sumeet 10 mg tablet TAKE 1 TABLET BY MOUTH ONCE DAILY NEEDED active Not Available Not Available No t Available cholecalcif everett (vitamin D3) 50 mcg (2,000 unit) capsule TAKE 1 CAPSULE BY MOUTH ONCE DAILY active Not Available Not Available No t Available Accu-Chek Guide test strips USE 1 STRIP TO CHECK GLUCOSE THREE TIMES DAILY active Not Available Not Available No t Available Accu-Chek Guide Glucose Meter USE DIRECTED active Not Available Not Available No t Available Nurtec ODT 75 mg disintegrat ing tablet Take by oral route for 30 days. active Not Available Not Available No t Available Airsupra 90 mcg-80 mcg/actuati on HFA aerosol inhaler Inhale 2 inhalatio ns every 4-6 hours by inhalatio n route as needed for 30 days, for wheezing/ shortness of air. 09/30 completed Not Available Not Available Not Available Vitals Date Recorded Body weight Body mass index (BMI) Body height Body temperature Heart rate Oxygen saturation Oxygen saturation in Arterial blood by Pulse oximetry Systolic And Diastolic Provider Name and Address Organization Details Last Updated DateTime 5 02186.5 9 g 20.8 kg/m2 152.4 cm 98 [degF] 88 /min 96 % 96 % 97/65 mm[Hg] Kyra Carter [employer] 5 10:36:49 Date Recorded Body height Body mass index (BMI) Body weight Oxygen saturation Oxygen saturation in Arterial blood by Pulse oximetry Heart rate Body temperature Systolic And Diastolic Provider Name and Address Organization Details Last Updated DateTime 5 152.4 cm 20.5 kg/m2 06916.4 8 g 96 % 96 % 80 /min 98.4 [degF] 108/70 mm[Hg] [facility] [employer] 5 12:46:40 Date Recorded Body height Body mass index (BMI) Body weight Heart rate Oxygen saturation Oxygen saturation in Arterial blood by Pulse oximetry Body temperature Systolic And Diastolic Provider Name and Address Organization Details Last Updated DateTime 5 152.4 cm 20.4 kg/m2 25636.7 6 g 94 /min 99 % 99 % 98.2 [degF] 124/74 mm[Hg] Jenni Goldman [employer]. 13:19:16 Social History Question Answer Notes LastModified by Organizat ion Details LastModified Time Tobacco Smoking Status Current Some Day Smoker Kyra Carter sonia [employer]. 09/30/2024 10:29:12 Do You Have An Advance Directive? No [email or web address] Information not available 09/30/2024 Is Your Home Air Conditioned? Yes [email or web address] Information not available 09/30/2024 If You Are , What Was Your Level Of Alcohol Consumption Prior To ? None [email or web address] Information not available 09/30/2024 How Many Years Have You Consumed Alcohol? 0 Information not available 09/30/2024 Do You Wear A Helmet When Biking? No [email or web address] Information not available 09/30/2024 Are You Blind Or Do You Have Difficulty Seeing? Yes [email or web address] Information not available 09/30/2024 What Is Your Level Of Caffeine Consumption? Moderate [email or web address] Information not available 09/30/2024 What Type Of Health Unit Clerk Do You Use? None [email or web address] Information not available 09/30/2024 In The 14 Days Before Symptom Onset, Have You Had Close Contact With A Laboratory-confir med COVID-19 While That Case Was Ill? No Information not available 09/30/2024 In The 14 Days Before Symptom Onset, Have You Had Close Contact With A Person Who Is Under Investigation For COVID-19 While That Person Was Ill? No [email or web address] Information not available 09/30/2024 Have You Been To An Area Known To Be High Risk For COVID-19? No [email or web address] Information not available 09/30/2024 Are You Deaf Or Do You Have Serious Difficulty Hearing? No Information not available 09/30/2024 What Type Of Diet Are You Following? REGULAR [email or web address] Information not available 09/30/2024 How Many Days Of Moderate To Strenuous Exercise, Like A Brisk Walk, Did You Do In The Last 7 Days? 3 [email or web address] Information not available 09/30/2024 Have There Been Any Changes To Your Family Or Social Situation? Yes Information no t available 09/30/2024 Are There Any Guns Present In Your Home? No [email or web address] Information not available 09/30/2024 Which Of Your Hands Is Dominant? Right [email or web address] Information not available 09/30/2024 What Is Your Home Situation? Other Information not available 09/30/2024 Do You Have A Medical Power Of It Infrastructure Manager? No [email or web address] Information not available 09/30/2024 What Was The Date Of Your Most Recent Tobacco Screening? 02/03/2025 Information not available 02/03/2025 What Is Your Current Pack Years? [email or web address] Information not available 09/30/2024 Do You Have Any Pets? Yes Information not available 09/30/2024 What Is Your Relationship Status? [email or web address] Information not available 09/30/2024 Have You Repeated Any Grades? No Information not available 09/30/2024 Do You Use Your Seat Belt Or Car Seat Routinely? Yes [email or web address] Information not available 09/30/2024 Are You Sexually Active? No [email or web address] Information not available 09/30/2024 Do You Have Any Siblings? Yes Information not available 09/30/2024 Do You Have Smoke And Carbon Monoxide Detectors In Your Home? Yes Information not available 09/30/2024 At What Age Did You Start Smoking Tobacco? 17 [email or web address] Information not available 09/30/2024 Are You Passively Exposed To Smoke? Yes [email or web address] Information no t available 09/30/2024 Are There Any Smokers In Your House? Yes [email or web address] Information not available 09/30/2024 How Much Tobacco Do You Smoke? 0.5 PPD Information not available 09/30/2024 Do You Participate In Social Media? Yes Information not available 02/03/2025 What Types Of Sporting Activities Do You Participate In? 0 [email or web address] Information not available 09/30/2024 Do You Use Sunscreen Routinely? No Information not available 09/30/2024 Has Tobacco Cessation Counseling Been Provided? Yes Information not available 11/02/2024 On What Date Was Tobacco Cessation Counseling Provided? 02/03/2025 Information not available 02/03/2025 How Many Years Have You Smoked Tobacco? 20 Information not available 09/30/2024 Have You Recently Traveled Abroad? No [email or web address] Information not available 09/30/2024 Do You Have Difficulty Walking Or Climbing Stairs? Yes [email or web address] Information not available 09/30/2024 Are You Currently In School? No Information not available 02/03/2025 What Contraceptive Method Was Reported At Start Of This Visit? Female Sterilization Information not available 02/03/2025 Do You Have Any Dietary Restrictions? No Information not available 02/03/2025 How Many Days In The Past Year Have You Consumed 4 Or More Drinks? 5 Information no t available 09/30/2024 Sex: Unknown Functional Status Question Answer Note LastModified by [email or web address] ion Details LastModified Time Do you use any illicit or recreational drugs? No [email or web address] Information not available 09/30/2024 Do you or have you ever used any other forms of tobacco or nicotine? No Information not available 11/02/2024 What is your level of alcohol consumption? Occasional [email or web address] Information not available 09/30/2024 Are you currently employed? No [email or web address] Information not available 09/30/2024 Do you have transportation difficulties? Yes Information not available 02/03/2025 Are you able to walk independently without assistance or assistive devices? [email or web address] Information not available 09/30/2024 Do you have difficulty doing errands alone? Yes [email or web address] Information not available 09/30/2024 Are you able to care for yourself independently? Yes Information not available 09/30/2024 Do you have difficulty dressing, bathing, grooming, or toileting? Yes [email or web address] Information not available 09/30/2024 What is your exercise level? Occasional Information not available 09/30/2024 Mental Status Question Answer Note LastModified by [employer] ion Details LastModified Time Do you feel stressed (tense, restless, nervous, or anxious, or unable to sleep at night)? [id number] Information not available 02/03/2025 Do you have difficulty concentrating, remembering or making decisions? No [email or web address] Information no t available 09/30/2024 Are you or have you been involved with bullying? Yes Information not available 09/30/2024 Family History Relationship Description Onset Age of this Age Resolved Age Notes LastModified by Organization Details LastModified Time Mother Hypercholest erolemia [email or web address] Not available 2024 10:29:10 Mother Anxiety disorder [email or web address] Not available 2024 10:29:10 Mother Arthritis [email or web address] Not availab le 09/30/2024 10:29:10 Mother Hypertensive disorder [email or web address] Not available 2024 10:29:10 Mother Osteoporosis [email or web address] Not avai lable 09/30/2024 10:29:10 Unspecified Relation Malignant neoplasm of breast [email or web address] Not available 2024 10:29:10 Unspecified Relation Malignant neoplasm of colon Not available 2024 10:29:10 Brother Hypercholest erolemia [email or web address] Not available 2024 10:29:10 Brother Hypertensive disorder [email or web address] Not available 2024 10:29:10 Brother Diabetes mellitus [email or web address] Not available 2024 10:29:10 Sister Asthma [email or web address] Not available 09/30/2024 10:29:10 Sister Hypertensive disorder Not available 2024 10:29:10 Sister Diabetes mellitus Not available 2024 10:29:10 Father Hypertensive disorder [email or web address] Not available 2024 10:29:10 Medical History Condition Response Diabetes Y Anxiety Disorder Y Allergies (Food, seasonal, environmental ) Y Vision or Eye Problems Y Arthritis Y Acid Reflux (GERD) Y Thyroid Problems Y Bladder or Kidney Problems Y High Cholesterol Y Headaches Y Hypertension Y Osteoporosis Y Gynecological History Statement/Question Response Menses Monthly N HPV Vaccine N Date of Last Pap Smear Current Control Method Hysterectom y Most Recent Mammogram 07/14/2015 Age at First Child 23 Obstetrics History GPAL:G 3 P 1 0 2 1 Type Value Multiple Births 0 Full Term 1 Induced 0 Spontaneous 2 Premature 0 Living 1 Ectopics 0 Total 3 Immunizations Vaccine Type Date Status Note Provider Nam e and Address Organization Details Recorded Time pneumococcal polysaccharide PPV23 completed Not Available [facility] 02/03/2025 13:06:27 Influenza, split virus, quadrivalent, PF 1 completed Not Available [facility] 02/03/2025 13:06:27 Influenza, split virus, quadrivalent, PF 2 completed Not Available [facility] 02/03/2025 13:06:27 Pneumococcal conjugate PCV20, polysaccharide BOY401 conjugate, adjuvant, PF 3 completed Not Available [facility] 02/03/2025 13:06:27 zoster recombinant 3 completed Not Available [facility] 02/03/2025 13:06:27 Past Encounters Encounter ID Performer Location Encounter Start Date Encounter Closed Date Diagnosis/Indication Diagnosis SNOMED-CT Code Diagnosis ICD10 Code Diagnosis IMO Codes Diagnosis Note [id number] SHRUTHI Emerson [facility] [address] [place] [address] 09/30/2024 10:09:11 09/30/2024 12:56:49 Depressive disorder 88196357 F32.A States she was most recently on duloxetine to see if it helped with the pain, but she does not feel like it helped with the pain and prozac helped better with the depression so would like to go back on that Osteoporosis 19261629 M8 1.0 Chronic pain 79829229 G8 9.29 Richard shows that she has not had a prescripti on for gabapentin (or any other controlled substance) in over a year Hyperlipidemia 49669623 E78.5 Gastroesop hageal reflux disease 294106930 K21.9 Allergic rhinitis 073695 04 J30.9 Hypothyroidism 48591565 E03.9 Vertigo 951334318 R42 Type 2 ashvin betes mellitus without complication 419483252 E11.9 Patient states that she is diabetic, but that log insulins drop her sugar too much. Requents abbey insulins and states that she takes them sliding scale. Nausea and vomiting 1693 2000 R11.2 Folic acid deficiency 19 3836942 E53.8 Hypokalemia 67862173 E87 .6 Essential hypertension 29775707 I10 HIV screening 237285043 Z11.4 Hepatitis C screening 41 2520789 Z11.59 Long-term drug therapy 657901792 Z79.899 Vitamin D deficiency 347 27521 E55.9 Bilateral lower limb edema 766634572 R60.0 Chronic ob structive pulmonary disease 73387861 J44.9 [id number] SHRUTHI Emerson [address] [place] [address] 11/02/2024 12:29:58 11/02/2024 13:12:08 Screening mammography 38897836 Z12.31 Bilateral tinnitus 44543 02616 102 H93.13 Dysfunctio n of bilateral eustachian tubes 2101926780 695393 H69.93 Cataract 426969899 H26.[address] advised patient to contact Dr Kirkpatrick to reschedule [id number] SHRUTHI Emerson [address] [address] 02/03/2025 13:03:18 02/03/2025 13:44:39 Long-term current use of drug therapy 252978407 Z79.899 82213015 Prediabetes 023180168 R7 3.03 017581 Patient states that she is diabetic, but that log insulins drop her sugar too much. Requents abbey insulins and states that she takes them sliding scale. Hypothyroidism 69186600 E03.9 39653105 Platelet c ount above reference range 841854884 R79.89 217612 Candidiasis of mouth 797 91356 B37.0 61394 Chronic pa in of right upper limb 9622573281 2489930 M25.511 G89.29 [id number] Patient requested prednisone until she sees ortho next week Health Concerns Section Related Observation LastModified by Organization Detai ls LastModified Time None Recorded Concern Status LastModified by Organization Details LastModified Time None Recorded Advance Directives Directive N: Payers Insurance Date Sequence Insurance Name Policy Number Policy Kelly Covered Member ID Kelly Member ID Guarantor Name 02/07/2025 1 [employer] (MEDICARE REPLACEMENT/AD VANTAGE - HMO) Yana Florence Georgie [id number] Yana García Georgie 01/01/2025 [place] [employer]atIT [facility] Yana Florence Georige [id number] Yana García Georgie 01/01/2025 [place] Yana Florence Georgie [id number] Yana García Georgie Notes Date Note Type Note Provider Name and Address Organization Details Recorded Time 09/30/2024 text/html ROS as noted in the HPI Patient presents to establish care.She has numerous chronic conditions and has not seen a PCP for some time.History of depression, osteoporosis, HLD, GERD, allergic rhinitis, CHF, hypothyroidism,Stat es she has chronic pain secondary to SI joint fusion, L4/L5 fusion & diskectomy and damaged disks in neck and back. Has had SCS but had it partially removed.She is requesting Gabapentin today - states she has been on it before in the past but last RX was last August.Requesting Xanax today for anxiety. States it has been several years since she has had it but liked it better than Klonopin.Also requesting Tylenol 3 for pain. SHRUTHI Emerson [address] [place], [address], [employer] 09/30/2024 17:02:59 11/02/2024 text/html ROS as noted in the HPI Patient has seen pain management. Had MRI last week. They started her on Gabapentin but only 100 mg. States that she used to be on 600 mg.Still hearing heartbeat in her ears. Used to take amitriptyline at bedtime and that helped. Feels pressure in both ears.[facility] told patient that she had right cataract. Eye doctor referred her to Dr John Kirkpatrick but she didn't have a ride to get there. SHRUTHI Emerson [address] [place], [address], [employer] 11/02/2024 14:07:00 02/03/2025 text/html ROS as noted in the HPI Patient presents for followup. History of hypothyroidism. Due for labs. History of prediabetes per her report but not currently on any medicine. Had elevated platelets on previous labs. Would like refills on Nystatin for thrush. SHRUTHI Emerson [address] [place], [address], [employer] 02/04/2025 13:34:23 OBGyn Episode No OBEpisode recorded.
--- OUTSIDE RECORDS SUMMARY | 2025-05-09 09:24 | XMS_ITS | Clinical Summary ---
Author Organization Healthcare Address [address] [place] [address] Care Team Providers Care Tax Collector Name Role Phone Payton Champagne Primary Care Provider [phone] Allergies Active Allergy Reactions Criticality Noted Date [...] 10 MEQ ER capsule 04/26/2020 Active B Asgocuk-Fwqnhz-B A (B-COMPLEX PO) 05/03/2020 Ac tive Active Problems Problem Noted Date Diagnosed Date Anemia 08/01/2020 Hypothyroidism 08/01/2020 Osteoporosis 08/01/2020 Shoulder pain 08/06/2017 Chronic low back pain 05/22/2017 Edema 04/01/2016 Hypertension 04/01/2016 Diabetes mellitus, type 2 03/27/2016 Microalbuminuria 02/14/2016 Resolved Problems Problem Noted Date Diagnosed Date Resolved Date Chronic diarrhea 08/28/2016 04/03/2025 Immunizations Immunization Administration Dates Next Due Influenza, [...] Date Last Done Comments [facility]-Depression Screening 1971 [facility]-/Child/Adol SDOH Screenings 1971 [facility]- SDOH Screenings 09/24/1989 [facility]-Adult SDOH Screenings 09/24/1989 [facility]-DTaP,Tdap,and Td Vaccine s (1 - Tdap) 09/24/1990 [facility]-Hepatitis B Vaccines (1 of 3 - 19+ 3-dose series) 09/24/1990 [facility]-Pap Smear 09/24/1992 [facility]-Cervical Cancer Screening 09/24/2001 [facility]-HPV/Cotest 09/24/2001 CT Colonography 09/24/2016 Colonoscopy 09/24/2016 FIT-DNA 09/24/2016 FIT 09/24/2016 FOBT 09/24/2016 Sigmoidoscopy 09/24/2016 [facility]-Colorectal Cancer Screening 09/24/2016 [facility]-Zoster Vaccines (2 of 2) 02/27/2023 01/02/2023 MMA-LCDPH-25 Vaccine (1 - season) 2025 [facility]-Influenza Vaccine (#1) 03/14/202508/06, 08/16/2020, 06/10/2011 [facility]-Pneumococcal [...] this topic Insurance [employer] MEDICARE Care Teams Tax Collector Relationship Specialty Start Date End Date Payton Champagne PA [address] [place] [address] PCP - General 07/25/21
== END 2025-05-09 23:59 | disposition home or self-care (01) ==
LOC: RAD 09:15
PROVIDERS: Visit Provider Physician Assistant Surgical
DX: M89.311 Hypertrophy of bone, right shoulder (principal); Z96.611 Presence of right artificial shoulder joint
CPT/HCPCS: 73030

== ENCOUNTER 2025-07-04 07:35 | Day surgery (SDC) | payer MEDICARE, SELFPAY ==
--- NOTE | 2025-06-30 07:05 | EXP.HP ---
History of Present Illness *Admission Date: 07/04/25 *History of present illness: Mrs. Jacques is a 54-year-old female who is here for diagnostic EGD and colonoscopy secondary to iron deficiency anemia. Her hemoglobin was 10.5 with normocytic indices. She also had some thrombocytosis. She did have an EGD and colonoscopy approximately 6 years ago and had a hiatal hernia. She did not have colon polyps. She has had fatigue and mild exertional dyspnea. Her serum ferritin was 6.1 with iron saturation of 11%. She does have heartburn and reflux along with nausea. She has been on omeprazole, famotidine and Reglan. The patient reports no melena, hematochezia or bright red blood per rectum. She reports no use of aspirin, NSAIDs or anticoagulation. She did have bleeding ulcers at the age of 13. The examination is deemed medically necessary for diagnostic EGD and colonoscopy. The patient has been seen, interviewed and examined prior to the procedure by both myself and the anesthesia provider. [facility] Disclaimer: The information contained in this section may have been updated after the patient was seen, as this information can be updated by other users. Medical History Chronic lumbar radiculopathy Hypothyroidism Hyperlipidemia (~10/15/17) Nausea Anxiety Depression Diabetes mellitus Family History Other Diabetes 1.5, managed as type 1 Social History (Updated 07/04/25 @ 09:03 by April Yuen RN) Smoking Status: Current every day smoker tobacco type: cigarettes packs per day: 2 alcohol intake: never substance use type: denies use current occupational status: other Travel in the last 8 weeks?: None Other Medical History Have you received the Flu Vaccine for this season: No Have you received the Pneumonia Vaccine: No Review of Systems Review of Systems Review of systems (narrative): Negative *Cardiovascular Comments: Negative *Gastrointestinal Comments: Negative *Genitourinary Comments: Negative *Musculoskeletal Comments: Negative *Neurologic Comments: Negative Meds Home Medications and Allergies Home Medications ?Medication ?Instructions ?Recorded ?Confirmed ?Type blood-glucose meter (Accu-Chek #1 kit 07/19/21 07/04/25 Rx Jacquelyn Plus Meter) alcohol swabs (BD Alcohol Swabs) See Rx Instructions .Route 01/10/23 12/22/25 Rx .COMPLEX #300 swabs blood sugar diagnostic (Accu-Chek #200 strips 07/23/22 07/04/25 Rx Jacquelyn Plus test strips) omeprazole 40 mg capsule,delayed See Rx Instructions .Route 07/23/22 07/04/25 Rx release .COMPLEX #90 caps furosemide 20 mg tablet See Rx Instructions .Route 11/18/22 07/04/25 Rx .COMPLEX #90 tabs lancets (Accu-Chek Softclix #200 ea 11/18/22 07/04/25 Rx Lancets) famotidine 20 mg tablet See Rx Instructions .Route 12/18/22 07/04/25 Rx .COMPLEX #30 tabs metoclopramide HCl 10 mg tablet See Rx Instructions .Route 12/18/22 07/04/25 Rx .COMPLEX #90 tabs insulin syringe-needle U-100 0.3 #100 ea 12/27/22 07/04/25 Rx mL 30 gauge x 5/16 (Advocate Syringes) levocetirizine 5 mg tablet (Xyzal) 5 mg PO DAILY #90 tabs 12/30/22 07/04/25 Rx atorvastatin 20 mg tablet See Rx Instructions .Route 04/17/23 07/04/25 Rx .COMPLEX #90 tabs ergocalciferol (vitamin D2) 1,250 50,000 unit PO QWEEK #14 caps 04/17/23 07/04/25 Rx mcg (50,000 unit) capsule fluticasone propionate 50 See Rx Instructions .Route 05/15/23 07/04/25 Rx mcg/actuation nasal .COMPLEX #16 mL spray,suspension albuterol sulfate 90 mcg/actuation See Rx Instructions .Route 09/08/23 07/04/25 Rx aerosol inhaler .COMPLEX #8.5 ea insulin aspart U-100 100 unit/mL See Rx Instructions .Route 09/17/23 07/04/25 Rx subcutaneous solution (Novolog .COMPLEX #10 mL U-100 Insulin aspart) meclizine 25 mg tablet See Rx Instructions .Route 09/17/23 07/04/25 Rx .COMPLEX #30 tabs amitriptyline 10 mg tablet See Rx Instructions .Route 11/03/23 07/04/25 Rx .COMPLEX #90 tabs cyclobenzaprine 10 mg tablet 10 mg PO TID #90 tabs 02/14/25 07/04/25 Rx gabapentin 400 mg capsule 400 mg PO TID #90 caps 02/14/25 07/04/25 Rx loratadine 10 mg tablet 10 mg PO DAILY 02/18/25 07/04/25 History ferumoxytol 510 mg/17 mL (30 510 mg (17 mL) IV Q3D 2 doses 02/22/25 07/04/25 Rx mg/mL) intravenous solution (Feraheme) fluoxetine 40 mg capsule 40 mg PO DAILY 04/28/25 07/04/25 History levothyroxine 100 mcg tablet 150 mcg PO DAILY 04/28/25 07/04/25 History sodium,potassium,mag sulfates 17.5 See Rx Instructions PO .COMPLEX 06/21/25 07/04/25 Rx gram-3.13 gram-1.6 gram oral soln #354 mL (Suprep Bowel Prep Kit) peg 3350-electrolytes 236 240 ml PO Q10M colonscopy #4,000 mL 06/24/25 07/04/25 Rx gram-22.74 gram-6.74 gram-5.86 gram solution (Golytely) New Prescriptions to Start Prescriptions: Allergies Allergy/AdvReac Type Severity Reaction Status Date / Time tizanidine Allergy Mild Hypotension Verified 07/04/25 08:58 baclofen (BACLOFEN) Allergy Unknown Hypotension Verified 07/04/25 08:58 SHELLFISH (FOOD) Allergy Unknown I-ITCHING Uncoded 05/09/25 09:39 Exam *Routine HEENT Exam Head: Present normocephalic Eye: Present EOMI and PERRL ENT: Present mucous membranes moist *Routine Neck Exam Neck: Present supple *Routine Respiratory Exam Respiratory: Present CTA bilaterally *Routine Cardiovascular Exam Cardiovascular: Present RRR *Routine Abdominal Exam Abdominal: Present soft and normoactive bowel sounds; Absent tenderness *Routine Rectal Exam Rectal:: deferred *Routine Genitalia Exam Genitalia:: deferred *Routine Extremities Exam Extremities: Absent cyanosis, clubbing or edema *Routine Skin Exam Skin: Present warm; Absent rash *Routine Neurological Exam Neurological: Present alert and oriented X3 Assessment and Plan *Assessment and plan (1) Iron deficiency anemia: Status: Acute Category: Medical Code(s): D50.9 - Iron deficiency anemia, unspecified (2) History of gastric ulcer: Status: Acute Category: Medical Code(s): Z87.11 - Personal history of peptic ulcer disease (3) Acid reflux: Status: Acute Category: Medical Code(s): K21.9 - Gastro-esophageal reflux disease without esophagitis (4) Heartburn: Status: Acute Category: Medical Code(s): R12 - Heartburn Plan A/P: 1. Iron deficiency anemia is the preprocedural diagnosis. The patient does have some heartburn and reflux with history of GERD. She also has a history of a gastric ulcer at the age of 13. The patient will be anesthetized/sedated using MAC sedation. The patient has been seen and examined. Cardiac and lung assessment prior to the examination is stable. Proceed with planned diagnostic EGD and colonoscopy.
--- NOTE | 2025-07-04 07:19 | HMH.PROCNOTE ---
[facility] Procedure Note Date: 07/04/25 Time: 10:47 Procedure Note:: Upper Endoscopy Procedure Report: Esophagogastroduodenoscopy with cold biopsies Endoscopost: Raúl Rios II, MD Referring Physician: Payton Champagne PA-C Date of Procedure: July 04, 2025 Equipment: Olympus GIF-1100 standard upper endoscope Sedation: MAC sedation Indications: Mrs. Jacques is a 54-year-old female who is here for diagnostic EGD and colonoscopy secondary to iron deficiency anemia. Her hemoglobin was 10.5 with normocytic indices. She also had some thrombocytosis. She did have an EGD and colonoscopy approximately 6 years ago and had a hiatal hernia. She did not have colon polyps. She has had fatigue and mild exertional dyspnea. Her serum ferritin was 6.1 with iron saturation of 11%. She does have heartburn and reflux along with nausea. She has been on omeprazole, famotidine and Reglan. The patient reports no melena, hematochezia or bright red blood per rectum. She reports no use of aspirin, NSAIDs or anticoagulation. She did have bleeding ulcers at the age of 13. 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 The examination is deemed medically necessary for diagnostic EGD and colonoscopy. Procedure: Prior to the procedure, a history and physical exam was performed, and patient's medications and allergies were reviewed. The risks, benefits and alternatives of the sedation and procedure were discussed with the patient. All questions were answered and informed consent was obtained. The patient was brought to the procedure room. Patient identification and proposed procedure were verified by the physician and the nurse. The patient was placed in a left lateral decubitus position and the scope was passed under direct vision. Throughout the procedure, the patient's blood pressure, pulse, and oxygen saturations were monitored continuously. The upper GI endoscopy was accomplished without difficulty. The patient tolerated the procedure well. Findings: The scope was passed directly into the upper esophagus and advanced to the third portion of the duodenum. The post bulbar duodenum, ampulla and duodenal bulb were normal with normal mucosa and conniventes. There is no scalloping or any evidence of celiac disease. There was mild duodenal lymphoid stasis. 2 biopsies were taken from the second portion of the duodenum for the disaccharidase assay. 4 biopsies were taken from the bulb and first portion of the duodenum for celiac disease. The scope was withdrawn through a normal duodenal bulb and pylorus into the stomach. There was some mild linear reactive gastropathy of the antrum. The body and fundus of the stomach were grossly normal. Upon retroflexion there was a 2 to 3 cm small hiatal hernia without Chauncey's erosions. 2 cold biopsies were taken from the antrum. The scope was then withdrawn into the esophagus. There was a serrated Z-line but no evidence of reflux esophagitis or Kasper's. There were mild tertiary contractions and the remainder of the esophageal mucosa was normal. Impression: 1. Nonerosive GERD with mild esophageal dysmotility and small 2 to 3 cm hiatal hernia 2. Mild linear reactive gastropathy of antrum Plan: I will follow-up the biopsies and disaccharidase assay. I will proceed with diagnostic colonoscopy.
--- NOTE | 2025-07-04 07:20 | HMH.PROCNOTE ---
[facility] Procedure Note Date: 07/04/25 Time: 11:06 Procedure Note:: Colonoscopy Procedure Report: Colonoscopy with cold snare polypectomy Endoscopist: Raúl Rios II, MD Referring physician: Payton Champagne PA-C Date of Procedure: July 04, 2025 Equipment: Olympus [id number] adult colonoscope Sedation: MAC sedation Indication: Mrs. Jacques is a 54-year-old female who is here for diagnostic EGD and colonoscopy secondary to iron deficiency anemia. Her hemoglobin was 10.5 with normocytic indices. She also had some thrombocytosis. She did have an EGD and colonoscopy approximately 6 years ago and had a hiatal hernia. She did not have colon polyps. She has had fatigue and mild exertional dyspnea. Her serum ferritin was 6.1 with iron saturation of 11%. She does have heartburn and reflux along with nausea. She has been on omeprazole, famotidine and Reglan. The patient reports no melena, hematochezia or bright red blood per rectum. She reports no use of aspirin, NSAIDs or anticoagulation. She did have bleeding ulcers at the age of 13. 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 The examination is deemed medically necessary for diagnostic EGD and colonoscopy. Procedure: Prior to the procedure, a history and physical exam was performed, and patient's medications and allergies were reviewed. The risks, benefits and alternatives of the sedation and procedure were discussed with the patient. All questions were answered and informed consent was obtained. The patient was brought to the procedure room. Patient identification and proposed procedure were verified by the physician and the nurse. The patient was placed in a left lateral decubitus position and the scope was passed under direct vision. Throughout the procedure, the patient's blood pressure, pulse, and oxygen saturations were monitored continuously. The colonoscopy was accomplished without difficulty. The patient tolerated the procedure well. Findings: On digital rectal examination there was normal rectal tone. There were no external hemorrhoids. The colonoscope was introduced through the anal canal to the rectum and advanced to the cecum. The ileocecal valve and appendiceal orifice were identified. The scope was advanced a short distance into the ileum which appeared grossly normal. The scope was then withdrawn into the colon. There were 3 colon polyps (ascending x 2 (3 and 4 mm) and rectosigmoid x 1 (9 mm)). These were all removed via cold snare polypectomy. The remaining cecum, ascending, transverse, descending, sigmoid and rectum were grossly normal. There were no other mucosal abnormalities identified. Upon retroflexion within the rectum there were grade 1 internal hemorrhoids. The preparation was excellent throughout with [place] Preparation Score of 9. The cecal time was 12 minutes. Impression: 1. Colonic polyps x 3 (3, 4 and 9 mm) Plan: I will follow-up the polyp histology and recommend repeat screening/surveillance colonoscopy again in 5 years. There was no etiology for the patient's iron deficiency anemia. I will obtain Hemoccult testing. If the patient is Hemoccult positive, I would consider M2A/PillCam (video capsule enteroscopy).
[2025-07-04 09:02] VITALS: BP 133/83; PULSE 104; RESP 18; TEMP 36.4; O2SAT 95; BMI 21.4
[2025-07-04 09:10] LABS: POC Glucose,Bedside 114 gm/dL (70-110)
[2025-07-04] MEDS: LACTATED RINGERS 1000ML 1,000 ML 50 ML IV (09:13)
--- NOTE | 2025-07-04 10:25 | EXP.ANES.CKL ---
[facility] Disclaimer: The information contained in this section may have been updated after the patient was seen, as this information can be updated by other users. Medical History Chronic lumbar radiculopathy Hypothyroidism Hyperlipidemia (~10/15/17) Nausea Anxiety Depression Diabetes mellitus Family History Other Diabetes 1.5, managed as type 1 Social History (Updated 07/04/25 @ 09:03 by April Yuen RN) Smoking Status: Current every day smoker tobacco type: cigarettes packs per day: 2 alcohol intake: never substance use type: denies use current occupational status: other Travel in the last 8 weeks?: None [facility] Anesthesia Checklist Patient Identification Patient Identification: Arm Band and Family Structural Data Admitted From: Home Planned Operative Procedure/s: EGD and Colonoscopy Consent for Planned Operative Procedure(s) Verified: Yes Verified Documents: Surgical Consent NPO Status Verified Time NPO: 00:00 Additional verifications Patient : No Anesthesia Reactions: No Hx Blood Transfusions: No Blood Transfusion Reaction: No Cephalosporin Allergy: No Previous Colonoscopy: Yes Airway Assessment Mallampati Score:: Class II C-Spine Mobility Assessed: Yes TMJ Mobility Assessed: Yes Dentition: Good Dentition Neurological Assessment Level of Consciousness: Awake, Alert, Appropriate and Follows Commands Hx Seizures: Yes Numbness or tingling in extremities: No Anesthesia Plan Anesthesia Risk discussed: Yes ASA Class: II Anesthesia Type: MAC Preoperative Comments Pre-Operative Comments: Seizure one year ago, on neuropin. HYPOTHYROID. NIDDM.
[2025-07-04 11:12] VITALS: BP 93/49; PULSE 78; RESP 20; TEMP 36.2; O2SAT 100
[2025-07-04 11:22] VITALS: BP 100/64; PULSE 74; O2SAT 99
[2025-07-04 11:32] VITALS: BP 105/63; PULSE 73; O2SAT 99
[2025-07-04 11:42] VITALS: BP 121/72; PULSE 75; O2SAT 100
[2025-07-13 12:54] LABS: Interpretation Notes (.); Lactase 23.66 (>/= 14.0); Maltase 207.93 (>/= 110.0); Palatinase 16.66 (>/= 8.5); Reference Notes (.); Sucrase 57.31 (>/= 25.0)
== END 2025-07-04 11:42 | disposition home or self-care (01) ==
PROVIDERS: PCP Physician Assistant; Visit Provider Internal Medicine Gastroenterology
PROC: 0DJ08ZZ Inspection of Upper Intestinal Tract, Via Natural or Artificial Opening Endoscopic (ICD-10-PCS; CPT 45378; principal; 2025-07-04 12:30)
DX: K21.00 Gastro-esophageal reflux disease with esophagitis, without bleeding (principal); K31.89 Other diseases of stomach and duodenum; K44.9 Diaphragmatic hernia without obstruction or gangrene; D12.7 Benign neoplasm of rectosigmoid junction; D12.2 Benign neoplasm of ascending colon; K64.1 Second degree hemorrhoids; D50.9 Iron deficiency anemia, unspecified; Z87.11 Personal history of peptic ulcer disease; Z79.899 Other long term (current) drug therapy; F17.210 Nicotine dependence, cigarettes, uncomplicated
CPT/HCPCS: 43239; 45385; 82657; 82962; 88305; J2003; J2704; J7120